=== PATIENT | female | born 1995 | race Caucasian/White ===

== ENCOUNTER → 2020-06-30 13:06 | Outpatient (BNVA) | payer OTHER, SELFPAY | PROVIDERS: PCP Nurse Practitioner Primary Care; Visit Provider Internal Medicine | DX: I34.0 Nonrheumatic mitral (valve) insufficiency (principal); I21.4 Non-ST elevation (NSTEMI) myocardial infarction; I10 Essential (primary) hypertension; Z87.74 Personal history of (corrected) congenital malformations of heart and circulatory system | CPT/HCPCS: 93005; 99212 ==

== ENCOUNTER 2021-01-29 19:10 | Inpatient (IN) | payer OTHER, SELFPAY ==
--- NOTE | ~2021-01-29 | US_ITS ---
EXAMINATION: US ABDOMEN LIMITED CLINICAL INFORMATION: Right upper quadrant pain. Question cholecystitis. COMPARISON: CT 06/13/2019 TECHNIQUE: Real-time imaging of the right upper quadrant abdominal viscera with attention focused on the gallbladder and common bile duct as directed by the ordering physician. FINDINGS: PANCREAS: Not imaged, as directed by the ordering provider. LIVER: The liver was not completely imaged but the visualized liver is normal in appearance GALLBLADDER: There is circumferential gallbladder wall thickening up to 7-8mm. Echogenic shadowing gallstones are present. The corporate sales manager reports focal tenderness upon imaging of the gallbladder, a sonographic Pate's sign COMMON BILE DUCT: Normal in caliber measuring 0.5 cm in diameter. RIGHT KIDNEY: Not imaged as directed by the ordering provider. FREE FLUID: None. US/US abdomen limited IMPRESSION: There are gallstones, gallbladder wall thickening, and focal tenderness upon imaging of the gallbladder. This constellation of findings is consistent with acute cholecystitis.
[2021-01-29 20:05] VITALS: BP 156/97; PULSE 58; RESP 18; TEMP 36.8; O2SAT 99; BMI 37.0
[2021-01-29 21:02] LABS: MANUAL DIFF FLAG NO
[2021-01-29 21:05] LABS: Basophils Absolute Auto 0.1 X10*3/uL (0.0-0.2); Basophils Percent Auto 0.5 % (0-2); Eosinophils Absolute Auto 0.3 X10*3/uL (0.0-0.4); Eosinophils Percent Auto 2.8 % (0-4); Hematocrit 41.6 % (37-47); Hemoglobin 13.8 g/dl (12.0-16.0); Imm Gran Abs Auto 0.03 X10*3/uL (0.00-0.03); Imm Gran Pct Auto 0.3 % (0.0-0.4); Lymphocytes Absolute Auto 3.1 X10*3/uL (1.2-4.9); Lymphocytes Percent Auto 33.8 % (20-40); Mean Corpuscular HGB Conc 33.2 g/dl (31.0-35.0); Mean Corpuscular Hemoglobin 27.5 pg (27.0-33.0); Mean Corpuscular Volume 82.9 fL (80-98); Mean Platelet Volume 9.6 fL (9.4-12.3); Monocytes Absolute Auto 0.6 X10*3/uL (0.1-1.2); Monocytes Percent Auto 6.5 % (2-11); Neutrophils Absolute Auto 5.1 X10*3/uL (2.0-8.3); Neutrophils Percent Auto 56.1 % (45-73); Platelet Count 244 X10*3/uL (160-400); Red Blood Count 5.02 X10*6/uL (4.20-5.50); Red Cell Distribution Width 13.8 % (11.0-16.0); White Blood Count 9.2 X10*3/uL (4.8-10.8)
[2021-01-29 21:07] LABS: Appearance Urine CLEAR; Color Urine YELLOW; Glucose Urine UA NEG (NEG); Leukocyte Esterase Urine NEG (NEG); Nitrite Urine NEG (NEG); Specific Gravity - Urine >= 1.030 (1.005-1.025); Urine Blood NEG (NEG); Urine Ketones 5 MG/DL (NEG); Urine Protein TRACE MG/DL (NEG-TRACE)
[2021-01-29 21:08] LABS: Urine Pregnancy NEGATIVE (NEGATIVE)
[2021-01-29 21:09] LABS: UPreg QC Valid YES
[2021-01-29 21:21] LABS: Alanine Aminotransferase 22 U/L (0-31); Albumin Level 4.4 g/dL (3.5-5.0); Alkaline Phosphatase 83 U/L (39-117); Anion Gap 11 (12-20); Aspartate Amino Transferase 26 U/L (5-31); Bilirubin Total 0.4 mg/dL (0.0-1.0); Blood Urea Nitrogen 13 mg/dL (9-16); Calcium 9.4 mg/dL (8.4-10.2); Carbon Dioxide 24 mmol/L (22-29); Chloride 106 mmol/L (96-108); Creatinine Clr Calc Pharmacy 101.9; Estimated Glomerular Filt Rate > 60; Glucose Random 85 mg/dL (60-115); Sodium 137 mmol/L (135-145); Total Protein 7.7 g/dL (6.5-8.0)
--- NOTE | 2021-01-29 21:46 | ED_ITS ---
HPI - Abdominal Pain General Chief Complaint: Abdominal Pain Stated Complaint: right abd pain Time Seen by Provider: 01/29/21 21:46 Source: patient Mode of arrival: ambulatory Limitations: no limitations History of Present Illness HPI narrative: Patient no significant abdominal complaints in the past noticed pain in the right upper quadrant for last 2 days getting worse after she eats anything associated with nausea, started vomiting today and low-grade fever no significant pain in the past. Normal bowel movements. Related Data Home Medications Medication Instructions Recorded Confirmed beclomethasone dipropionate 40 2 inh PO BID 06/30/20 06/30/20 mcg/actuation HFA breath activated aerosol hydrochlorothiazide 25 mg tablet 25 mg PO QAM 06/30/20 01/29/21 Previous Rx's Medication Instructions Recorded amlodipine 5 mg tablet 10 mg PO DAILY #180 tab 06/30/20 Allergies Allergy/AdvReac Type Severity Reaction Status Date / Time No Known Allergies Allergy Verified 01/29/21 20:05 Review of Systems Review of Systems Yes all other systems are reviewed and are negative Physical Exam Vital Signs: Vital Signs: Last Vital Signs Temp 98.1 F 01/30/21 01:10 Pulse 76 01/30/21 01:10 Resp 16 01/30/21 01:10 BP 154/81 H 01/30/21 01:10 Pulse Ox 98 01/30/21 01:10 Body Mass Index 37.0 Appearance: Alert. Oriented X3. In moderate distress Eyes: No pallor or icterus ENT: Pharynx normal. Oral Mucosa moist Neck: Normal inspection. Neck supple. CVS: Normal heart rate and rhythm. Pulses normal. Respiratory: No respiratory distress. Equal air entry bilateral, no wheezing/rales/rhonchi Abdomen: Soft and tender right upper quadrant Pate sign positive no rebound tenderness guarding present Bowel sounds are present, no mass palpable, no CVA tenderness Skin: Skin warm and dry. Normal skin color. Normal skin turgor. Extremities: No lower extremity edema. No calf tenderness Neuro: Oriented X 3. MDM - Abdominal Pain MDM Narrative Medical decision making narrative: Patient with acute cholecystitis with cholelithiasis normal LFTs patient received 2 doses of morphine is still complaining of pain case discussed Dr. Clayton surgeon will admit the patient for cholecystectomy in the morning Lab Data Attestation: I reviewed the patient's lab results. Result diagrams: 01/29/21 20:57 01/29/21 20:57 Labs: Lab Results 01/29/21 01/29/21 01/29/21 Range/Units 20:57 20:57 20:57 WBC 9.2 (4.8-10.8) X10*3/uL RBC 5.02 (4.20-5.50) X10*6/uL Hgb 13.8 (12.0-16.0) g/dl Hct 41.6 (37-47) % MCV 82.9 (80-98) fL MCH 27.5 (27.0-33.0) pg MCHC 33.2 (31.0-35.0) g/dl RDW 13.8 (11.0-16.0) % Plt Count 244 (160-400) X10*3/uL MPV 9.6 (9.4-12.3) fL Immature Gran % (Auto) 0.3 (0.0-0.4) % Neut % (Auto) 56.1 (45-73) % Lymph % (Auto) 33.8 (20-40) % [place] % (Auto) 6.5 (2-11) % Eos % (Auto) 2.8 (0-4) % Baso % (Auto) 0.5 (0-2) % Lymph # (Auto) 3.1 (1.2-4.9) X10*3/uL [place] # (Auto) 0.6 (0.1-1.2) X10*3/uL Eos # (Auto) 0.3 (0.0-0.4) X10*3/uL Baso # (Auto) 0.1 (0.0-0.2) X10*3/uL Abs Immat Gran (auto) 0.03 (0.00-0.03) X10*3/uL Absolute Neuts (auto) 5.1 (2.0-8.3) X10*3/uL Absolute Nucleated RBC 0.000 (0.0-0.012) X10*3/uL Nucleated RBC % (auto) 0.0 (0.0-0.2) /100WBC Sodium 137 (135-145) mmol/L Potassium 4.0 (3.3-5.1) mmol/L Chloride 106 (96-108) mmol/L Carbon Dioxide 24 (22-29) mmol/L Anion Gap 11 L (12-20) BUN 13 (9-16) mg/dL Creatinine 0.83 (0.5-1.4) mg/dL Estim Creat Clear Calc 101.9 Estimated GFR > 60 Random Glucose 85 (60-115) mg/dL Calcium 9.4 (8.4-10.2) mg/dL Total Bilirubin 0.4 (0.0-1.0) mg/dL AST 26 (5-31) U/L ALT 22 (0-31) U/L Alkaline Phosphatase 83 (39-117) U/L Total Protein 7.7 (6.5-8.0) g/dL Albumin 4.4 (3.5-5.0) g/dL Urine Color YELLOW Urine Appearance CLEAR Urine pH 6.0 (5.0-8.0) Ur Specific [place] >= 1.030 H (1.005-1.025) Urine Protein TRACE (NEG-TRACE) MG/DL Urine Glucose (UA) NEG (NEG) MG/DL Urine Ketones 5 (NEG) MG/DL Urine Blood NEG (NEG) Urine Nitrite NEG (NEG) Ur Leukocyte Esterase NEG (NEG) Urine Test (NEGATIVE) 01/29/21 Range/Units 20:57 WBC (4.8-10.8) X10*3/uL RBC (4.20-5.50) X10*6/uL Hgb (12.0-16.0) g/dl Hct (37-47) % MCV (80-98) fL MCH (27.0-33.0) pg MCHC (31.0-35.0) g/dl RDW (11.0-16.0) % Plt Count (160-400) X10*3/uL MPV (9.4-12.3) fL Immature Gran % (Auto) (0.0-0.4) % Neut % (Auto) (45-73) % Lymph % (Auto) (20-40) % [place] % (Auto) (2-11) % Eos % (Auto) (0-4) % Baso % (Auto) (0-2) % Lymph # (Auto) (1.2-4.9) X10*3/uL [place] # (Auto) (0.1-1.2) X10*3/uL Eos # (Auto) (0.0-0.4) X10*3/uL Baso # (Auto) (0.0-0.2) X10*3/uL Abs Immat Gran (auto) (0.00-0.03) X10*3/uL Absolute Neuts (auto) (2.0-8.3) X10*3/uL Absolute Nucleated RBC (0.0-0.012) X10*3/uL Nucleated RBC % (auto) (0.0-0.2) /100WBC Sodium (135-145) mmol/L Potassium (3.3-5.1) mmol/L Chloride (96-108) mmol/L Carbon Dioxide (22-29) mmol/L Anion Gap (12-20) BUN (9-16) mg/dL Creatinine (0.5-1.4) mg/dL Estim Creat Clear Calc Estimated GFR Random Glucose (60-115) mg/dL Calcium (8.4-10.2) mg/dL Total Bilirubin (0.0-1.0) mg/dL AST (5-31) U/L ALT (0-31) U/L Alkaline Phosphatase (39-117) U/L Total Protein (6.5-8.0) g/dL Albumin (3.5-5.0) g/dL Urine Color Urine Appearance Urine pH (5.0-8.0) Ur Specific [place] (1.005-1.025) Urine Protein (NEG-TRACE) MG/DL Urine Glucose (UA) (NEG) MG/DL Urine Ketones (NEG) MG/DL Urine Blood (NEG) Urine Nitrite (NEG) Ur Leukocyte Esterase (NEG) Urine Test NEGATIVE (NEGATIVE) Discharge Plan Discharge Clinical Impression: Acute calculous cholecystitis Patient Disposition: Admitted As Inpatient [facility] Past Medical History Medical History Essential hypertension Non-rheumatic mitral regurgitation Surgical History History of cardiac catheterization History of lumbar fusion (~2009) Status post catheter-placed plug or coil occlusion of PDA Family History Family History Father No problems noted. Mother Heart attack Stroke HTN (hypertension) Social History Social History Patient Tobacco Use Status: Never used Tobacco Use of substances other than those prescribed or required for medical reasons: No Advance Directives: No Advance Directives Information Provided: Yes Patient : No
[2021-01-29] MEDS: ondansetron HCL 4 MG/2 ML VIAL IVPUSH (22:16)
[2021-01-29] MEDS: Morphine Sulfate 4 MG/ML CARTRIDGE IVPUSH (22:16)
[2021-01-29] MEDS: 0.9 % Sodium Chloride 1,000 ML 999 ML IVCONT (22:16)
--- NOTE | 2021-01-29 22:35 | PC.NURSE ---
US AT BEDSIDE PT MEDICATED PREVIOUSLY PER JUN. IV INFILTRATED UPON REPOSITIONING FOR OPTIMAL FLOW OF FLUIDS. IV REMOVED AND RN TO ATTEMPT NEW ACCESS. PT TOLERATING BEDSIDE US WELL. SKIN PWD RESPIRATIONS EVEN UNLABORED.
[2021-01-29 23:22] VITALS: BP 157/72; PULSE 75; RESP 18; TEMP 36.7; O2SAT 98
[2021-01-30] VITALS (15 sets, daily range): BP systolic 133–203; BP diastolic 65–114; PULSE 62–95; RESP 16–18; TEMP 36.2–36.7; O2SAT 93–98
[2021-01-30] MEDS: Morphine Sulfate 4 MG/ML CARTRIDGE IVPUSH ×5 (00:07→21:22)
--- NOTE | 2021-01-30 00:13 | PC.NURSE ---
PLAN TO ADMIT, PT MEDICATED PER MAR. OFFERS NO ADDITIONAL COMPLAINTS AT THIS TIME. AWAITING ADMISSION.
[2021-01-30] MEDS: 0.9 % Sodium Chloride 1,000 ML 100 ML IVCONT ×2 (01:06→17:47)
[2021-01-30] MEDS: Piperacillin Sodium/Tazobactam 3.375 GM in 0.9 % Sodium Chloride 50 ML IV ×4 (01:06→23:42)
[2021-01-30 01:08] LABS: INTERNATIONAL NORM RATIO 1.1 (0.9-1.1); Prothrombin Time 12.8 SEC (9.9-13.0)
[2021-01-30] MEDS: Morphine Sulfate 2 MG/ML CARTRIDGE IVPUSH (02:38)
[2021-01-30 03:50] LABS: COVID-19 Test Negative (Negative)
--- NOTE | 2021-01-30 07:52 | P.HPGS_ITS ---
History of Present Illness History of Present Illness Date of Service: 01/30/21 <Jacqueline Cruz PA-C - Last Filed: 01/30/21 10:48> 01/30/21 <Mary Kay Martinez MD - Last Filed: 01/30/21 11:18> Chief complaint: Acute cholecystitis <Jacqueline Cruz PA-C - Last Filed: 01/30/21 10:48> Narrative: Loni Lombardi is a 25 year old female who presented to the ED with complaints of RUQ abdominal pain since Tuesday. Patient reports sudden onset of RUQ pain following eating chicken and rice on Tuesday. She developed nausea, vomiting and diarrhea shortly after. The pain radiated to her right flank and upper back and began to progressively worsen over the next couple of days. She also endorses anorexia due to the pain and nausea. She denies fever, chills, change in skin or urine/stool color. She denies previous episodes of similar pain. Due to the severity of the pain, she presented to the ED yesterday for evaluation. Work up included an ABD US which revealed gallstones, gallbladder wall thickening with a sonographic Pate's sign. CBC, BMP, LFTs, PT/INR all WNL. This morning, she feels a little better but has persistent pain. The morphine takes the edge off but not the pain away completely and wears off quickly. Of note, the patient has multiple medical comorbidities including hypertension, a history of a PDA closure with coils as an infant, a cardiac cath for a presumed NSTEMI which was normal. She is followed by [facility] for HTN, PDA closure and mitral regurgitation found on echo. Her last appointment was 07/20. She denies recent episodes of chest pain, SOB, palpitations. She also has a history of shunt placement (age 9) for hydrocephalus, spinal fusion (posterior approach), and history of cyst removal of spleen. <Jacqueline Cruz PA-C - Last Filed: 01/30/21 10:48> Loni Lombardi is a 25 year old female who presented to the ED with complaints of RUQ abdominal pain since Tuesday. Patient reports sudden onset of RUQ pain following eating chicken and rice on Tuesday. She developed nausea, vomiting and diarrhea shortly after. The pain radiated to her right flank and upper back and began to progressively worsen over the next couple of days. She also endorses anorexia due to the pain and nausea. She denies fever, chills, change in skin or urine/stool color. She denies previous episodes of similar pain. Due to the severity of the pain, she presented to the ED yesterday for evaluation. Work up included an ABD US which revealed gallstones, gallbladder wall thickening with a sonographic Pate's sign. CBC, BMP, LFTs, PT/INR all WNL. This morning, she feels a little better but has persistent pain. The morphine takes the edge off but not the pain away completely and wears off quickly. Of note, the patient has multiple medical comorbidities including hypertension, a history of a PDA closure with coils as an infant, a cardiac cath for a presumed NSTEMI which was normal. She is followed by [facility] for HTN, PDA closure and mitral regurgitation found on echo. Her last appointment was 07/20. She denies recent episodes of chest pain, SOB, palpitations. She also has a history of shunt placement (age 9) for hydrocephalus, spinal fusion (posterior approach), and history of cyst removal of spleen. Patient seen, history obtained, physical exam performed, labs and radiologic studies reviewed. I agree with the history and physical exam and assessment and plan from the physician assistant curator. Patient has acute cholecystitis with cholelithiasis. Patient will be taken to the operating room for laparoscopic possible open cholecystectomy. Risks benefits and alternatives were discussed with the patient and she agrees to proceed. <Mary Kay Martinez MD - Last Filed: 01/30/21 11:18> Review of Systems Constitutional: Constitutional: Denies chills, Denies fever(s), Reports poor appetite and Reports weakness <Jacqueline Cruz PA-C - Last Filed: 01/30/21 10:48> ENT: Denies dizziness <ANTHONY Badillo Last Filed: 01/30/21 10:48> Cardiovascular: Cardiovascular: Denies chest pain, Denies palpitations and Denies dyspnea <ANTHONY Badillo Last Filed: 01/30/21 10:48> Respiratory: Respiratory: Denies cough and Denies dyspnea <Jacqueline Cruz PA-C - Last Filed: 01/30/21 10:48> Gastrointestinal: Gastrointestinal: Reports as per HPI and Denies hematemesis <Jacqueline Cruz PA-C - Last Filed: 01/30/21 10:48> Genitourinary: Genitourinary: Denies hematuria and Denies dysuria <Jacqueline Cruz PA-C - Last Filed: 01/30/21 10:48> Integumentary/Breasts: Skin/Breast: Denies rash and Denies jaundice <Jacqueline Cruz PA-C - Last Filed: 01/30/21 10:48> Neurologic: Denies dizziness, Denies focal weakness and Reports weakness <Jacqueline Cruz PA-C Last Filed: 01/30/21 10:48> Endocrine: Endocrine: Denies palpitations <Jacqueline Cruz PA-C Last Filed: 01/30/21 10:48> PMFSH Past Medical History Medical History: Medical History Essential hypertension Non-rheumatic mitral regurgitation <Jacqueline Cruz PA-C - Last Filed: 01/30/21 10:48> Family History Family History: Family History (Updated 01/30/21 @ 11:11 by Mary Kay Martinez MD) Father Heart attack Stroke Heart disease Mother History of cholecystectomy Brother No problems noted. Brother No problems noted. Sister No problems noted. Maternal Grandmother Breast cancer <Jacqueline Cruz PA-C Last Filed: 01/30/21 10:48> Surgical History Surgical History: Surgical History (Updated 01/30/21 @ 11:15 by Mary Kay Martinez MD) History of brain shunt History of cardiac catheterization History of foot surgery History of laparoscopy History of lumbar fusion (~2009) Status post catheter-placed plug or coil occlusion of PDA <Jacqueline Cruz PA-C Last Filed: 01/30/21 10:48> Social History Social History: Social History (Updated 01/30/21 @ 11:16 by Mary Kay Martinez MD) Household Members: Family Housing: Apartment Do you presently have visiting nurse or other home services: No Alcohol intake: current Alcohol intake frequency: holidays/special occasions only Patient Tobacco Use Status: Never used Tobacco Use of substances other than those prescribed or required for medical reasons: No Have you been hit, kicked, punched, or otherwise hurt by someone within the past year? If so, by whom?: No Do you feel safe in your current relationship?: No Current Relationship Is there a partner from a previous relationship who is making you feel unsafe now?: No Are you made to feel afraid or neglected: No Advance Directives: No Advance Directives Information Provided: Yes Do you have thoughts of harming others: None Do you have a plan to hurt others: No Plan Recently lost weight without trying: Unsure Nutrition Risks: Poor intake 0-25% >4 days Patient : No <Jacqueline Cruz PA-C - Last Filed: 01/30/21 10:48> Meds Allergies/Adverse reactions: Allergies Allergy/AdvReac Type Severity Reaction Status Date / Time No Known Allergies Allergy Verified 01/29/21 20:05 <Jacqueline Cruz PA-C - Last Filed: 01/30/21 10:48> Active Medications: Current Medications Acetaminophen (Acetaminophen 325 Mg Tablet) 650 mg PO Q4H PRN PRN Reason: Fever Albuterol Sulfate (Albuterol Sulfate 90 Mcg 8 Gm Inhaler) 2 puff INHALE RQ4H PRN PRN Reason: wheezing Amlodipine Besylate (Amlodipine Besylate 10 Mg Tablet) 10 mg PO DAILY JUAN; Protocol Diphenhydramine HCl (Diphenhydramine Hcl 25 Mg Tablet) 25 mg PO Q4H PRN PRN Reason: itching Hydrochlorothiazide (Hydrochlorothiazide 25 Mg Tablet) 25 mg PO DAILY JUAN; Protocol Sodium Chloride (Ns) 1,000 mls @ 100 mls/hr IVCONT .Q10H JUAN Last Admin: 01/30/21 01:06 Dose: 100 mls/hr Documented by: Piperacillin Sod/Tazobactam (Sod 3.375 gm/ Sodium Chloride) 50 mls @ 100 mls/hr IV Q6H [facility] Last Infusion: 01/30/21 07:34 Dose: Infused Documented by: Morphine Sulfate (Morphine Sulfate 2 Mg/Ml Cartridge) 2 mg IVPUSH Q3H PRN; Protocol PRN Reason: Pain, Moderate (Pain Scale 4-6 Last Admin: 01/30/21 02:38 Dose: 2 mg Documented by: Morphine Sulfate (Morphine Sulfate 4 Mg/Ml Cartridge) 4 mg IVPUSH Q3H PRN; Protocol PRN Reason: Pain, Severe (Pain Scale 7-10) Last Admin: 01/30/21 06:09 Dose: 4 mg Documented by: Ondansetron HCl (Ondansetron Hcl 4 Mg/2 Ml Vial) 4 mg IVPUSH Q4H PRN PRN Reason: Nausea Sodium Chloride (0.9 % Sodium Chloride Flush 3 Ml Syringe) 3 ml IVFLUSH QSHIFT [facility] <ANTHONY Badillo Last Filed: 01/30/21 10:48> Home medications: Home Medications Medication Instructions Recorded Confirmed Last Taken Type hydrochlorothiazide 25 mg tablet 25 mg PO QAM 06/30/20 01/29/21 01/29/21 History <ANTHONY Badillo Last Filed: 01/30/21 10:48> Physical Exam Vital Signs: Vital Signs: Last Vital Signs Temp 98.1 F 01/30/21 01:10 Pulse 76 01/30/21 01:10 Resp 16 01/30/21 01:10 BP 154/81 H 01/30/21 01:10 Pulse Ox 98 01/30/21 01:10 Body Mass Index 37.0 <ANTHONY Badillo Last Filed: 01/30/21 10:48> Const: General: comfortable, no acute distress and alert <ANTHONY Badillo Last Filed: 01/30/21 10:48> Orientation/consciousness: patient oriented x3 <ANTHONY Badillo Last Filed: 01/30/21 10:48> Eyes: Sclerae: sclerae normal <ANTHONY Badillo Last Filed: 01/30/21 10:48> Resp: Effort & Inspection: normal respiratory effort <ANTHONY Badillo Last Filed: 01/30/21 10:48> Cardio: Rate: regular rate <ANTHONY Badillo Last Filed: 01/30/21 10:48> Rhythm: regular rhythm <ANTHONY Badillo Last Filed: 01/30/21 10:48> GI: Inspection: No distended and Yes scar (well healed) <Jacqueline Cruz PA-C - Last Filed: 01/30/21 10:48> Palpation (GI): Soft to palpation, Tenderness to palpation present (GI) in the epigastrum and in the RUQ (marked); Negative for Pate's sign negative, no guarding and not rigid <Jacqueline Cruz PA-C - Last Filed: 01/30/21 10:48> Palpation (GI): Tenderness to palpation present (GI) in the epigastrum and in the RUQ (marked); Negative for Pate's sign negative <Mary Kay Martinez MD - Last Filed: 01/30/21 11:18> Percussion: Yes normal to percussion <Jacqueline Cruz PA-C - Last Filed: 01/30/21 10:48> Skin: Other: normal color, warm and dry <Jacqueline Cruz PA-C - Last Filed: 01/30/21 10:48> General skin exam: no rashes or lesions noted <Jacqueline Cruz PA-C - Last Filed: 01/30/21 10:48> Neuro: General: patient oriented x3 <Jacqueline Cruz PA-C - Last Filed: 01/30/21 10:48> Extrem: General: Yes no clubbing, cyanosis or edema <Jacqueline Cruz PA-C - Last Filed: 01/30/21 10:48> Results Results Labs: Short CBC 01/29/21 Range/Units 20:57 WBC 9.2 (4.8-10.8) X10*3/uL Hgb 13.8 (12.0-16.0) g/dl Hct 41.6 (37-47) % Plt Count 244 (160-400) X10*3/uL BMP 01/29/21 20:57 Sodium 137 Potassium 4.0 Chloride 106 Carbon Dioxide 24 BUN 13 Creatinine 0.83 Calcium 9.4 Liver Function 01/29/21 Range/Units 20:57 Total Bilirubin 0.4 (0.0-1.0) mg/dL AST 26 (5-31) U/L ALT 22 (0-31) U/L Alkaline Phosphatase 83 (39-117) U/L Albumin 4.4 (3.5-5.0) g/dL Urine 01/29/21 01/29/21 Range/Units 20:57 20:57 Urine Color YELLOW Urine Appearance CLEAR Urine pH 6.0 (5.0-8.0) Ur Specific [place] >= 1.030 H (1.005-1.025) Urine Protein TRACE (NEG-TRACE) MG/DL Urine Glucose (UA) NEG (NEG) MG/DL Urine Test NEGATIVE (NEGATIVE) <Jacqueline Cruz PA-C - Last Filed: 01/30/21 10:48> Abdominal ultrasound report/results: report reviewed <Mary Kay Martinez MD - Last Filed: 01/30/21 11:18> Assessment and Plan (1) Acute calculous cholecystitis: Status: Acute <Jacqueline Cruz PA-C - Last Filed: 01/30/21 10:48> This is a 25-year-old lady with acute calculous cholecystitis by history physical exam and ultrasound results. Patient will be taken to the operating room for laparoscopic possible open cholecystectomy. Risks benefits and alternatives were discussed with the patient she agrees to proceed. <Mary Kay Martinez MD - Last Filed: 01/30/21 11:18> (2) Essential hypertension: Status: Acute <Jacqueline Cruz PA-C - Last Filed: 01/30/21 10:48> 25 year old female with multiple medical comorbidities with 4 day history of RUQ abdominal pain associated with nausea and vomiting, with marked RUQ tenderness and ABD US demonstrating gallstones and gallbladder wall thickening. Clinical picture consistent with acute cholecystitis. She was admitted to the surgical service and started on IV zosyn, IVF, NPO status. Given the persistence of pain, it was recommended to proceed with laparoscopic cholecystectomy possible open. Technique of the procedure, risks and benefits and alternatives were discussed with the patient including but not limited to infection, bleeding, injury to surrounding intraabdominal structures including liver, bile ducts, vessels, bowel. The patient elects to proceed with surgery. She was added onto the OR schedule for today. Case discussed with Dr. Martinez. <Jacqueline Cruz PA-C - Last Filed: 01/30/21 10:48> Quality Stroke Does the patient have a stroke diagnosis?: No <Jacqueline Cruz PA-C - Last Filed: 01/30/21 10:48> VTE Prior VTE?: No <Jacqueline Cruz PA-C - Last Filed: 01/30/21 10:48> VTE Risk Level:: Surgical - high <Jacqueline Cruz PA-C - Last Filed: 01/30/21 10:48> VTE Device Contraindication: N/A - Device Ordered <Jacqueline Cruz PA-C - Last Filed: 01/30/21 10:48> VTE Drug Contraindication: Treatment Not Indicated (surgery scheduled) <Jacqueline Cruz PA-C - Last Filed: 01/30/21 10:48> Procedures Date of Service Date of Service: 01/30/21 <Jacqueline Cruz PA-C - Last Filed: 01/30/21 10:48>
[2021-01-30] MEDS: hydroCHLOROthiazide 25 MG TABLET PO (08:00)
[2021-01-30] MEDS: amLODIPine Besylate 10 MG TABLET PO (08:00)
[2021-01-30] MEDS: ondansetron HCL 4 MG/2 ML VIAL IVPUSH (10:54)
--- NOTE | 2021-01-30 13:33 | P.CONAN_ITS ---
[facility] Active Problems Active Problems: All Active Problems (Updated 01/30/21 @ 00:01 by Dominic Pendleton MD) Acute calculous cholecystitis (Acute) Status post catheter-placed plug or coil occlusion of PDA (Acute) Essential hypertension (Acute) NSTEMI (non-ST elevated myocardial infarction) (Acute) Non-rheumatic mitral regurgitation (Acute) Past Medical History Medical History Essential hypertension Non-rheumatic mitral regurgitation Family History Family History Father Heart attack Stroke Heart disease Mother History of cholecystectomy Brother No problems noted. Brother No problems noted. Sister No problems noted. Maternal Grandmother Breast cancer Family history of problems with anesthesia: No Surgical History Surgical History History of brain shunt History of cardiac catheterization History of foot surgery History of laparoscopy History of lumbar fusion (~2009) Status post catheter-placed plug or coil occlusion of PDA History of Problems with Anesthesia: No Social History Social History Household Members: Family Housing: Apartment Do you presently have visiting nurse or other home services: No Alcohol intake: current Alcohol intake frequency: holidays/special occasions only Patient Tobacco Use Status: Never used Tobacco Use of substances other than those prescribed or required for medical reasons: No Currently Displaying Signs/Symptoms of Drug Intoxication Withdrawal: No Have you been hit, kicked, punched, or otherwise hurt by someone within the past year? If so, by whom?: No Do you feel safe in your current relationship?: No Current Relationship Is there a partner from a previous relationship who is making you feel unsafe now?: No Are you made to feel afraid or neglected: No Are you DNR?: No Advance Directives: No Advance Directives Information Provided: Yes Do you have thoughts of harming others: None Do you have a plan to hurt others: No Plan Recently lost weight without trying: Unsure Nutrition Risks: Poor intake 0-25% >4 days Patient : No Meds Allergies Allergy/AdvReac Type Severity Reaction Status Date / Time No Known Allergies Allergy Verified 01/29/21 20:05 Active Medications: Current Medications Acetaminophen (Acetaminophen 325 Mg Tablet) 650 mg PO Q4H PRN PRN Reason: Fever Albuterol Sulfate (Albuterol Sulfate 90 Mcg 8 Gm Inhaler) 2 puff INHALE RQ4H PRN PRN Reason: wheezing Amlodipine Besylate (Amlodipine Besylate 10 Mg Tablet) 10 mg PO DAILY [facility]; Protocol Last Admin: 01/30/21 08:00 Dose: 10 mg Documented by: Diphenhydramine HCl (Diphenhydramine Hcl 25 Mg Tablet) 25 mg PO Q4H PRN PRN Reason: itching Hydrochlorothiazide (Hydrochlorothiazide 25 Mg Tablet) 25 mg PO DAILY [facility]; Protocol Last Admin: 01/30/21 08:00 Dose: 25 mg Documented by: Sodium Chloride (Ns) 1,000 mls @ 100 mls/hr IVCONT .Q10H [facility] Last Admin: 01/30/21 12:18 Dose: Not Given Documented by: Piperacillin Sod/Tazobactam (Sod 3.375 gm/ Sodium Chloride) 50 mls @ 100 mls/hr IV Q6H [facility] Last Infusion: 01/30/21 07:34 Dose: Infused Documented by: Lactated Ringer's (Lr) 500 mls @ 20 mls/hr IVCONT .Q24H [facility] Morphine Sulfate (Morphine Sulfate 2 Mg/Ml Cartridge) 2 mg IVPUSH Q3H PRN; Protocol PRN Reason: Pain, Moderate (Pain Scale 4-6 Last Admin: 01/30/21 02:38 Dose: 2 mg Documented by: Morphine Sulfate (Morphine Sulfate 4 Mg/Ml Cartridge) 4 mg IVPUSH Q3H PRN; Protocol PRN Reason: Pain, Severe (Pain Scale 7-10) Last Admin: 01/30/21 09:39 Dose: 4 mg Documented by: Ondansetron HCl (Ondansetron Hcl 4 Mg/2 Ml Vial) 4 mg IVPUSH Q4H PRN PRN Reason: Nausea Last Admin: 01/30/21 10:54 Dose: 4 mg Documented by: Sodium Chloride (0.9 % Sodium Chloride Flush 3 Ml Syringe) 3 ml IVFLUSH QSHIFT [facility] Last Admin: 01/30/21 08:10 Dose: Not Given Documented by: Home Medications Medication Instructions Recorded Confirmed Last Taken Type hydrochlorothiazide 25 mg tablet 25 mg PO QA 06/30/20 01/29/2101/29/21 History Exam Exam Date and Time: January 30, 2021 1333 Height,Weight and Vital Signs: Height 5 ft Weight 86.183 kg Last Vital Signs Temp 98.0 F 01/30/21 12:57 Pulse 77 01/30/21 12:57 Resp 16 01/30/21 12:57 BP 161/83 H 01/30/21 12:57 Pulse Ox 97 01/30/21 12:57 Pertinent Lab Results Pertinent Lab Results: Laboratory Tests 01/29/21 01/29/21 01/29/21 20:57 20:57 20:57 WBC 9.2 RBC 5.02 Hgb 13.8 Hct 41.6 MCV 82.9 MCH 27.5 MCHC 33.2 RDW 13.8 Plt Count 244 MPV 9.6 Immature Gran % (Auto) 0.3 Neut % (Auto) 56.1 Lymph % (Auto) 33.8 [place] % (Auto) 6.5 Eos % (Auto) 2.8 Baso % (Auto) 0.5 Lymph # (Auto) 3.1 [place] # (Auto) 0.6 Eos # (Auto) 0.3 Baso # (Auto) 0.1 Abs Immat Gran (auto) 0.03 Absolute Neuts (auto) 5.1 Absolute Nucleated RBC 0.000 Nucleated RBC % (auto) 0.0 PT INR Sodium 137 Potassium 4.0 Chloride 106 Carbon Dioxide 24 Anion Gap 11 L BUN 13 Creatinine 0.83 Estim Creat Clear Calc 101.9 Estimated GFR > 60 Random Glucose 85 Calcium 9.4 Total Bilirubin 0.4 AST 26 ALT 22 Alkaline Phosphatase 83 Total Protein 7.7 Albumin 4.4 Urine Color YELLOW Urine Appearance CLEAR Urine pH 6.0 Ur Specific [place] >= 1.030 H Urine Protein TRACE Urine Glucose (UA) NEG Urine Ketones 5 Urine Blood NEG Urine Nitrite NEG Ur Leukocyte Esterase NEG Urine Test COVID-19 ([facility]) COVID-19 Clin Com 01/29/21 01/30/21 01/30/21 20:57 00:53 03:28 WBC RBC Hgb Hct MCV MCH MCHC RDW Plt Count MPV Immature Gran % (Auto) Neut % (Auto) Lymph % (Auto) [place] % (Auto) Eos % (Auto) Baso % (Auto) Lymph # (Auto) [place] # (Auto) Eos # (Auto) Baso # (Auto) Abs Immat Gran (auto) Absolute Neuts (auto) Absolute Nucleated RBC Nucleated RBC % (auto) PT 12.8 INR 1.1 Sodium Potassium Chloride Carbon Dioxide Anion Gap BUN Creatinine Estim Creat Clear Calc Estimated GFR Random Glucose Calcium Total Bilirubin AST ALT Alkaline Phosphatase Total Protein Albumin Urine Color Urine Appearance Urine pH Ur Specific [place] Urine Protein Urine Glucose (UA) Urine Ketones Urine Blood Urine Nitrite Ur Leukocyte Esterase Urine Test NEGATIVE COVID-19 ([facility]) Negative COVID-19 Clin Com See Note Airway Mallampati Class: II TM Dist: >3cm Neck ROM: Full Assessment and Plan Assessment Anesthesia Assessment: Anesthesia Plan Discussed and Chart Reviewed Final Anesthetic Review Family History of Problems with Anesthesia: No History of Problems with Anesthesia: No NPO: Yes ASA Class: III Final Preanesthetic Review: No Changes in Pt Med Stat, Meds/Allgs Chart Reviewed, Consent Obtained/Reviewed and Anes Risks/Benef Reviewed Patient Risk: Intermediate Procedure Risk: Intermediate Assessment/Block/Sedation in SS: Assess/Block/Sedation-SS Anesthetic Plan Anesthetic Plan: GA Disposition: Standard PACU
[2021-01-30] MEDS: Lactated Ringers 500 ML 20 ML IVCONT (13:36)
--- NOTE | 2021-01-30 14:11 | PM.OP ---
Brief Operative Note Date of Service: 01/30/21 Pre-op diagnosis: Acute cholecystitis Post-op diagnosis: same Procedure: Laparoscopic cholecystectomy Surgeon: Mary Kay Martinez MD Anesthesia: GETA Was an Six Sigma Black Belt Engineer used for this Procedure?: No Six Sigma Black Belt Engineer: Jacqueline Cruz Estimated blood loss (mL): 50 Pathology: other (Gallbladder) Condition: stable Disposition: PACU
--- NOTE | 2021-01-30 14:12 | W.PM.OPN ---
Operative Note Operative Note Date of Service: 01/30/21 Narrative: Patient was brought into the operating room, placed on operating table in the supine position. Normal DVT prophylaxis was instituted. Patient received 2 g of IV cefotetan preoperatively. General anesthesia was induced. The abdomen was prepped and draped in the normal sterile fashion using ChloraPrep. A safety time-out was performed. Next a mixture of 1% lidocaine with epinephrine and 0.25% Marcaine plain was used to anesthetize the planned incision site in the infraumbilical position. A 11. Scalpel was used to make a 2 cm infraumbilical transverse surgical incision through which the subcutaneous tissues were dissected down to level the fascia. The fascia was grasped did between 2 Emilee clamps and entered using a 11. Scalpel for about 1 cm vertically. An 0 Vicryl suture was placed on either side of the open fascia. A finger was used to bluntly gain access to the intra-abdominal cavity. A 12 mm Schaefer trocar was introduced into the abdomen and secured to the abdominal wall using sutures on the fascia. The abdomen was insufflated to 15 mmHg. Next a 5 mm 30 degree laparoscoped was introduced into the abdomen and used to survey the abdominal cavity which was normal. Next 3 additional 5 mm ports were placed. One port was placed in the epigastrium to the right of the falciform ligament, 2 ports were placed in the right upper quadrant 1 laterally and 1 more medially. The patient was placed in reverse Trendelenburg and left side tilted down. A grasper was placed through the right lateral port and used to grasp the fundus of the gallbladder and retracted it cephalad. Another grasper was used to grasp the infundibulum of the gallbladder retracted inferior and laterally. We cleared the cystic artery and cystic duct circumferentially and the distal 1/3 of the gallbladder with the gallbladder fossa. This gave us the critical view of safety. We then placed 3 clips on the cystic duct distal to the gallbladder 1 clip on the cystic duct proximal to the gallbladder. We placed 1 clip on the cystic artery proximal to the gallbladder and 2 clips on the cystic artery distal to the gallbladder and transected both structures in between clips. We took the remainder of the gallbladder off the gallbladder fossa and placed in Endo-Catch bag and removed it from the abdomen. We then evaluated the gallbladder fossa it was hemostatic there was no evidence of any bile draining or any bleeding noted. The clips were in place on the cystic artery and cystic duct stumps. We then removed the 5 mm ports under direct vision there was no bleeding noted from these port sites. We desufflated the abdomen through the last remaining port and removed the last port and laparoscope. We reapproximated the fascial defect at the umbilicus using a [id number] 0 Vicryl suture and tied the original fascial sutures over that closure. There was no residual fascial defect. We placed an additional amount of local anesthetic into the fascia closure site. We closed all skin incisions with a 4 Monocryl subcuticular stitch. We cleaned and dried the skin and applied Dermabond skin glue to all skin incisions. All counts were correct at the end the case there were no complications. The patient was awake and in stable condition prior to extubation and transfer to the recovery room.
--- NOTE | 2021-01-30 14:16 | P.DS_ITS ---
DS: Providers Provider Date of Service: 01/30/21 Date of admission: 01/30/21 00:14 Date of discharge: 01/31/21 Primary care physician: Unknown Physician Admitting clinician: Mary Kay Martinez Discharging clinician: Mary Kay Martinez DS: Diagnosis Discharge Diagnosis (1) Acute calculous cholecystitis: Status: Acute (2) Essential hypertension: Status: Acute DS: Summary Hospital Course Hospital Course: This is a 25-year-old lady who was admitted on 01/30/2021 with acute cholecystitis by history physical exam and ultrasound. Patient was admitted to the surgical service and was taken to the operating room where a laparoscopic cholecystectomy was performed without event. Patient did well postoperatively and was taken back to the surgical floor where she was started on a regular diet when tolerated well. On postoperative day 1. Patient was noted to be doing well and was discharged home. Status at Discharge Functional status at discharge: independent ambulation Overall status at discharge: patient is back to baseline Time Spent with Patient Time attestation: Total time spent providing and/or coordinating discharge services: Discharge coordination time: Less than 30 minutes Quality: Stroke Does the patient have a stroke diagnosis?: No Physical Exam Vital Signs: Vital Signs: Last Vital Signs Temp 98.0 F 01/30/21 12:57 Pulse 77 01/30/21 12:57 Resp 16 01/30/21 12:57 BP 161/83 H 01/30/21 12:57 Pulse Ox 97 01/30/21 12:57 Body Mass Index 37.0 DS: Data Data Completed and Pending Labs on day of discharge: Laboratory Results - last 24 hr 01/29/21 01/29/21 01/29/21 20:57 20:57 20:57 WBC 9.2 RBC 5.02 Hgb 13.8 Hct 41.6 MCV 82.9 MCH 27.5 MCHC 33.2 RDW 13.8 Plt Count 244 MPV 9.6 Immature Gran % (Auto) 0.3 Neut % (Auto) 56.1 Lymph % (Auto) 33.8 [place] % (Auto) 6.5 Eos % (Auto) 2.8 Baso % (Auto) 0.5 Lymph # (Auto) 3.1 [place] # (Auto) 0.6 Eos # (Auto) 0.3 Baso # (Auto) 0.1 Abs Immat Gran (auto) 0.03 Absolute Neuts (auto) 5.1 Absolute Nucleated RBC 0.000 Nucleated RBC % (auto) 0.0 PT INR Sodium 137 Potassium 4.0 Chloride 106 Carbon Dioxide 24 Anion Gap 11 L BUN 13 Creatinine 0.83 Estim Creat Clear Calc 101.9 Estimated GFR > 60 Random Glucose 85 Calcium 9.4 Total Bilirubin 0.4 AST 26 ALT 22 Alkaline Phosphatase 83 Total Protein 7.7 Albumin 4.4 Urine Color YELLOW Urine Appearance CLEAR Urine pH 6.0 Ur Specific [place] >= 1.030 H Urine Protein TRACE Urine Glucose (UA) NEG Urine Ketones 5 Urine Blood NEG Urine Nitrite NEG Ur Leukocyte Esterase NEG Urine Test COVID-19 ([facility]) COVID-19 Allocab Com 01/29/21 01/30/21 01/30/21 20:57 00:53 03:28 WBC RBC Hgb Hct MCV MCH MCHC RDW Plt Count MPV Immature Gran % (Auto) Neut % (Auto) Lymph % (Auto) [place] % (Auto) Eos % (Auto) Baso % (Auto) Lymph # (Auto) [place] # (Auto) Eos # (Auto) Baso # (Auto) Abs Immat Gran (auto) Absolute Neuts (auto) Absolute Nucleated RBC Nucleated RBC % (auto) PT 12.8 INR 1.1 Sodium Potassium Chloride Carbon Dioxide Anion Gap BUN Creatinine Estim Creat Clear Calc Estimated GFR Random Glucose Calcium Total Bilirubin AST ALT Alkaline Phosphatase Total Protein Albumin Urine Color Urine Appearance Urine pH Ur Specific [place] Urine Protein Urine Glucose (UA) Urine Ketones Urine Blood Urine Nitrite Ur Leukocyte Esterase Urine Test NEGATIVE COVID-19 ([facility]) Negative COVID-19 Clin Com See Note Discharge Plan Discharge Patient Disposition: Home, Self-Care Discharge Diagnosis: Acute cholecystitis Referrals: Physician,Unknown [Primary Care Provider] - 1 Week Discharge Medications: New acetaminophen 500 mg tablet 1,000 mg PO Q6H Qty: 60 RF: 1 docusate sodium [Colace] 100 mg capsule 100 mg PO BID Qty: 30 RF: 1 oxycodone 5 mg tablet 5 mg PO Q4H PRN (Reason: pain) 7 Days Qty: 20 RF: 0 Continued hydrochlorothiazide 25 mg tablet 25 mg PO QAM RF: 0 amlodipine 5 mg tablet 10 mg PO DAILY Qty: 180 RF: 4 Discharge Orders: Discharge Order (Routine); Ordered 02/01/21 Ordered By: Ewa Goncalves Diet: regular diet Activity on Discharge: No heavy lifting Stand Alone Forms: Patient Portal Discharge page Activity Restrictions/Additional Instructions: Patient should avoid all lifting greater than 5-10 lb for the next 4 weeks. Patient should follow up with Dr. Martinez in 1 week and should call the office to schedule her a follow-up appointment. The office number is [phone]. Patient should also call Dr. Martinez office with any questions or concerns such as increasing abdominal pain, persistent nausea vomiting, fever, chills, shortness of breath, chest pain. Patient may resume prehospitalization medications and diet. Care Plan Goals: Return to baseline health Health Concerns: Acute cholecystitis Plan of Treatment: Patient is status post laparoscopic cholecystectomy Assessment: Patient is doing well Discharge Date/Time: 02/01/21 12:32
--- NOTE | 2021-01-30 15:25 | MHC.CM.PN ---
CM ATTEMPTED TO MEET W/PT HOWEVER PT HAS LEFT UNIT FOR SURGERY, CM WILL REVISIT OVER W/E.
[2021-01-30] MEDS: oxyCODONE HCl Immed Release 5 MG TABLET 10 MG PO ×3 (16:05→23:47)
[2021-01-30] MEDS: fentaNYL citrate/PF 100 MCG/2 ML VIAL 50 MCG IVPUSH ×4 (16:05→16:20)
[2021-01-30] MEDS: Acetaminophen 325 MG TABLET 650 MG PO (19:07)
[2021-01-30] MEDS: Melatonin 3 MG TABLET 6 MG PO (21:18)
[2021-01-30] MEDS: 0.9 % Sodium Chloride Flush 3 ML SYRINGE IVFLUSH (21:22)
[2021-01-31] MEDS: 0.9 % Sodium Chloride 1,000 ML 100 ML IVCONT ×2 (03:20→13:52)
[2021-01-31] MEDS: Morphine Sulfate 4 MG/ML CARTRIDGE IVPUSH ×4 (03:20→18:35)
[2021-01-31] MEDS: ondansetron HCL 4 MG/2 ML VIAL IVPUSH (03:24)
[2021-01-31] MEDS: Piperacillin Sodium/Tazobactam 3.375 GM in 0.9 % Sodium Chloride 50 ML IV ×3 (05:25→17:34)
[2021-01-31 08:00] VITALS: BP 160/81; PULSE 66; RESP 18; TEMP 36.6; O2SAT 97
[2021-01-31] MEDS: hydroCHLOROthiazide 25 MG TABLET PO (08:20)
[2021-01-31] MEDS: amLODIPine Besylate 10 MG TABLET PO (08:20)
[2021-01-31] MEDS: oxyCODONE HCl Immed Release 5 MG TABLET 10 MG PO ×3 (08:21→17:34)
--- NOTE | 2021-01-31 10:33 | HO.POSTANES ---
Post Anesthesia Evaluation Post Anesthesia Evaluation Vital Signs: Vital Signs Temp Pulse Resp BP Pulse Ox 01/31/21 08:00 97.8 F 66 18 160/81 H 97 Anesthesia: General Endotracheal-GETA Mental Status: Awake Pain Control: Satisfactory Nausea/Vomiting: None Hydration: Adequate Anesthesia-Related Issues: No Anes. Related Issues
[2021-01-31 11:50] VITALS: BP 167/85; PULSE 70; RESP 18; TEMP 36.6; O2SAT 99
--- NOTE | 2021-01-31 13:19 | PM.PNGS ---
Subjective Subjective Date of Service: 01/31/21 Interval history: Complaining of severe incisional pain only partially relieved with oxycodone. Tolerating solid diet. Able to get in and out of bed but reluctant to go very far due to pain. Does not feel ready for discharge. Physical Exam Vital Signs: Vital Signs: Last Vital Signs Temp 97.9 F 01/31/21 11:50 Pulse 70 01/31/21 11:50 Resp 18 01/31/21 11:50 BP 167/85 H 01/31/21 11:50 Pulse Ox 99 01/31/21 11:50 Body Mass Index 37.0 Const: Other: Appears uncomfortable General: cooperative and alert Resp: Effort & Inspection: normal respiratory effort Auscultation: clear to auscultation bilaterally Cardio: Rate: regular rate Rhythm: regular rhythm GI: Other: Slightly round, soft, bowel sounds active, incisions clean dry and intact, appropriately tender postoperatively primarily in her area of incisions Procedures Date of Service Date of Service: 01/31/21 Progress Note: A&P Assessment and plan (1) Acute calculous cholecystitis: Status: Acute Assessment and Plan: Appears stable day 1 post laparoscopic cholecystectomy, but having difficulty with pain control. Does not feel ready for discharge. Likely will be ready next 24 hours. Fall Risk Details Current Medications: Current Medications Acetaminophen (Acetaminophen 325 Mg Tablet) 650 mg PO Q4H PRN PRN Reason: Fever Last Admin: 01/30/21 19:07 Dose: 650 mg Documented by: Acetaminophen (Acetaminophen 325 Mg Tablet) 650 mg PO ONCE PRN PRN Reason: Pain, Mild (Pain Scale 1-3) Albuterol Sulfate (Albuterol Sulfate 90 Mcg 8 Gm Inhaler) 2 puff INHALE RQ4H PRN PRN Reason: wheezing Amlodipine Besylate (Amlodipine Besylate 10 Mg Tablet) 10 mg PO DAILY [facility]; Protocol Last Admin: 01/31/21 08:20 Dose: 10 mg Documented by: Diphenhydramine HCl (Diphenhydramine Hcl 25 Mg Tablet) 25 mg PO Q4H PRN PRN Reason: itching Hydrochlorothiazide (Hydrochlorothiazide 25 Mg Tablet) 25 mg PO DAILY [facility]; Protocol Last Admin: 01/31/21 08:20 Dose: 25 mg Documented by: Sodium Chloride (Ns) 1,000 mls @ 100 mls/hr IVCONT .Q10H [facility] Last Infusion: 01/31/21 11:46 Dose: 100 mls/hr Documented by: Piperacillin Sod/Tazobactam (Sod 3.375 gm/ Sodium Chloride) 50 mls @ 100 mls/hr IV Q6H [facility] Last Infusion: 01/31/21 11:46 Dose: Infused Documented by: Melatonin (Melatonin 3 Mg Tablet) 6 mg PO BEDTIME PRN PRN Reason: Sleep Last Admin: 01/30/21 21:18 Dose: 6 mg Documented by: Morphine Sulfate (Morphine Sulfate 2 Mg/Ml Cartridge) 2 mg IVPUSH Q3H PRN; Protocol PRN Reason: Pain, Moderate (Pain Scale 4-6 Last Admin: 01/30/21 02:38 Dose: 2 mg Documented by: Morphine Sulfate (Morphine Sulfate 4 Mg/Ml Cartridge) 4 mg IVPUSH Q3H PRN; Protocol PRN Reason: Pain, Severe (Pain Scale 7-10) Last Admin: 01/31/21 10:03 Dose: 4 mg Documented by: Ondansetron HCl (Ondansetron Hcl 4 Mg/2 Ml Vial) 4 mg IVPUSH Q4H PRN PRN Reason: Nausea Last Admin: 01/31/21 03:24 Dose: 4 mg Documented by: Oxycodone HCl (Oxycodone Hcl Immed Release 5 Mg Tablet) 5 mg PO Q3H PRN PRN Reason: Pain, Moderate (Pain Scale 4-6 Oxycodone HCl (Oxycodone Hcl Immed Release 5 Mg Tablet) 10 mg PO Q3H PRN PRN Reason: Pain, Severe (Pain Scale 7-10) Last Admin: 01/31/21 08:21 Dose: 10 mg Documented by: Sodium Chloride (0.9 % Sodium Chloride Flush 3 Ml Syringe) 3 ml IVFLUSH QSHIFT [facility] Last Admin: 01/31/21 08:21 Dose: Not Given Documented by: Time Spent With Patient Time: Total time spent is greater than 50% in coordination of care (as documented) at patient's floor/unit and/or counseling patient: Time with patient: 15 - 24 minutes Quality Stroke Does the patient have a stroke diagnosis?: No VTE Prior VTE?: No VTE Risk Level:: Surgical - high VTE Device Contraindication: N/A - Device Ordered VTE Drug Contraindication: Treatment Not Indicated (surgery scheduled)
[2021-01-31 15:33] VITALS: BP 163/84; PULSE 72; RESP 16; TEMP 36.6; O2SAT 98
--- NOTE | 2021-01-31 15:57 | MHC.CM.PN ---
CM MET WITH PT WHO REPORTS SHE LIVES WITH HER MOTHER PT REPORTS SHE IS INDEPENDENT WITH ALL CARE PT USES NO DME AND NO IN HOME SERVICES PT HAS A HCP ON FILE AND REPORTS HER PCP IS DR BERMEO AT [facility] IMM DELIVERED CURRENT DCP IS HOME WITH NO SERVICES FAMILY TO TRANSPORT
[2021-01-31] MEDS: Docusate Sodium 100 MG CAPSULE PO (17:34)
[2021-01-31 19:05] VITALS: BP 169/81; PULSE 67; RESP 18; TEMP 36.4; O2SAT 97
[2021-01-31] MEDS: oxyCODONE HCl Immed Release 5 MG TABLET PO (20:52)
[2021-02-01] VITALS: BP 167/93; PULSE 73; RESP 18; TEMP 36.2; O2SAT 99
[2021-02-01] MEDS: oxyCODONE HCl Immed Release 5 MG TABLET PO (00:56)
[2021-02-01] MEDS: Melatonin 3 MG TABLET 6 MG PO (02:56)
[2021-02-01] MEDS: Piperacillin Sodium/Tazobactam 3.375 GM in 0.9 % Sodium Chloride 50 ML IV (02:57)
[2021-02-01] MEDS: Morphine Sulfate 4 MG/ML CARTRIDGE IVPUSH ×2 (02:58→09:25)
[2021-02-01] MEDS: 0.9 % Sodium Chloride Flush 3 ML SYRINGE IVFLUSH (03:01)
[2021-02-01 04:00] VITALS: BP 157/91; PULSE 73; RESP 18; TEMP 36.3; O2SAT 99
--- NOTE | 2021-02-01 04:27 | PC.NURSE ---
Patient given antibiotic late due to lack of IV access. Multiple attempts by multiple nurses. ED RN inserted 22 into right foot
[2021-02-01 07:40] VITALS: BP 141/83; PULSE 60; RESP 16; TEMP 36.7; O2SAT 98
[2021-02-01] MEDS: amLODIPine Besylate 10 MG TABLET PO (09:25)
[2021-02-01] MEDS: hydroCHLOROthiazide 25 MG TABLET PO (09:25)
[2021-02-01] MEDS: 0.9 % Sodium Chloride 1,000 ML 100 ML IVCONT (09:26)
[2021-02-01] MEDS: oxyCODONE HCl Immed Release 5 MG TABLET 10 MG PO (11:59)
--- NOTE | 2021-02-01 12:01 | MHC.CM.PN ---
PT CLEARED TO DC HOME TODAY WITH NO SERVICES FAMILY TO TRANSPORT
--- NOTE | 2021-02-01 12:09 | P.PNGS_ITS ---
Subjective Subjective Date of Service: 02/01/21 Interval history: She reports ongoing incisional pain, but much improved from yesterday. Continues to tolerate diet. Feels ready for discharge home. Physical Exam Vital Signs: Vital Signs: Last Vital Signs Temp 98.0 F 02/01/21 07:40 Pulse 60 02/01/21 07:40 Resp 16 02/01/21 07:40 BP 141/83 H 02/01/21 07:40 Pulse Ox 98 02/01/21 07:40 Body Mass Index 37.0 Const: General: cooperative, no acute distress and tired appearing Resp: Effort & Inspection: normal respiratory effort Auscultation: clear to auscultation bilaterally Cardio: Rate: regular rate Rhythm: regular rhythm GI: Other: Soft, nondistended, incisions clean and well approximated. Appropriately tender around incisional area. Procedures Date of Service Date of Service: 02/01/21 Progress Note: A&P Assessment and plan (1) Acute calculous cholecystitis: Status: Acute Assessment and Plan: Improving day 2 status post laparoscopic cholecystectomy for acute calculous cholecystitis. She is ready for discharge home today and will follow up with Dr. Clayton in the office. Fall Risk Details Current Medications: Current Medications Acetaminophen (Acetaminophen 325 Mg Tablet) 650 mg PO Q4H PRN PRN Reason: Fever Last Admin: 01/30/21 19:07 Dose: 650 mg Documented by: Acetaminophen (Acetaminophen 325 Mg Tablet) 650 mg PO ONCE PRN PRN Reason: Pain, Mild (Pain Scale 1-3) Albuterol Sulfate (Albuterol Sulfate 90 Mcg 8 Gm Inhaler) 2 puff INHALE RQ4H PRN PRN Reason: wheezing Amlodipine Besylate (Amlodipine Besylate 10 Mg Tablet) 10 mg PO DAILY JUAN; Protocol Last Admin: 02/01/21 09:25 Dose: 10 mg Documented by: Diphenhydramine HCl (Diphenhydramine Hcl 25 Mg Tablet) 25 mg PO Q4H PRN PRN Reason: itching Docusate Sodium (Docusate Sodium 100 Mg Capsule) 100 mg PO BEDTIME JUAN Last Admin: 01/31/21 17:34 Dose: 100 mg Documented by: Hydrochlorothiazide (Hydrochlorothiazide 25 Mg Tablet) 25 mg PO DAILY JUAN; Protocol Last Admin: 02/01/21 09:25 Dose: 25 mg Documented by: Sodium Chloride (Ns) 1,000 mls @ 100 mls/hr IVCONT .Q10H [facility] Last Admin: 02/01/21 09:26 Dose: 100 mls/hr Documented by: Piperacillin Sod/Tazobactam (Sod 3.375 gm/ Sodium Chloride) 50 mls @ 100 mls/hr IV Q6H [facility] Last Admin: 02/01/21 11:59 Dose: Not Given Documented by: Melatonin (Melatonin 3 Mg Tablet) 6 mg PO BEDTIME PRN PRN Reason: Sleep Last Admin: 02/01/21 02:56 Dose: 6 mg Documented by: Morphine Sulfate (Morphine Sulfate 2 Mg/Ml Cartridge) 2 mg IVPUSH Q3H PRN; Protocol PRN Reason: Pain, Moderate (Pain Scale 4-6 Last Admin: 01/30/21 02:38 Dose: 2 mg Documented by: Morphine Sulfate (Morphine Sulfate 4 Mg/Ml Cartridge) 4 mg IVPUSH Q3H PRN; Protocol PRN Reason: Pain, Severe (Pain Scale 7-10) Last Admin: 02/01/21 09:25 Dose: 4 mg Documented by: Ondansetron HCl (Ondansetron Hcl 4 Mg/2 Ml Vial) 4 mg IVPUSH Q4H PRN PRN Reason: Nausea Last Admin: 01/31/21 03:24 Dose: 4 mg Documented by: Oxycodone HCl (Oxycodone Hcl Immed Release 5 Mg Tablet) 5 mg PO Q3H PRN PRN Reason: Pain, Moderate (Pain Scale 4-6 Last Admin: 02/01/21 00:56 Dose: 5 mg Documented by: Oxycodone HCl (Oxycodone Hcl Immed Release 5 Mg Tablet) 10 mg PO Q3H PRN PRN Reason: Pain, Severe (Pain Scale 7-10) Last Admin: 02/01/21 11:59 Dose: 10 mg Documented by: Sodium Chloride (0.9 % Sodium Chloride Flush 3 Ml Syringe) [facility] Last Admin: 02/01/21 09:12 Dose: Not Given Documented by: Time Spent With Patient Time: Total time spent is greater than 50% in coordination of care (as documented) at patient's floor/unit and/or counseling patient: Time with patient: less than 15 minutes Quality Stroke Does the patient have a stroke diagnosis?: No VTE Prior VTE?: No VTE Risk Level:: Surgical - high VTE Device Contraindication: N/A - Device Ordered VTE Drug Contraindication: Treatment Not Indicated (surgery scheduled)
== END 2021-02-01 12:32 | disposition home or self-care (01) | DRG 419 ==
LOC: HO.ED 01-30 00:01 → HO.EDOVER 01-30 00:28 → HO.S3 01-30 04:32
PROVIDERS: Admitting Provider Hospitalist; Emergency Provider Internal Medicine; Visit Provider Surgery
PROC: 0FT44ZZ Resection of Gallbladder, Percutaneous Endoscopic Approach (ICD-10-PCS; CPT 47562; principal; 2021-01-30 14:10)
DX: K80.00 Calculus of gallbladder with acute cholecystitis without obstruction (principal); Z20.822 Contact with and (suspected) exposure to COVID-19; Z79.899 Other long term (current) drug therapy
CPT/HCPCS: 36415; 76705; 80053; 81003; 81025; 85025; 85610; 87635; 88304; 99024; 99285; J1100; J1170; J2250; J2270; J2405; J2543; J3010

== ENCOUNTER → 2021-02-03 11:44 | Outpatient (BNVA) | payer OTHER, SELFPAY | PROVIDERS: Referring Provider Nurse Practitioner Primary Care; Visit Provider Surgery | DX: R19.7 Diarrhea, unspecified (principal); I10 Essential (primary) hypertension; I34.0 Nonrheumatic mitral (valve) insufficiency; Z90.49 Acquired absence of other specified parts of digestive tract; Z98.890 Other specified postprocedural states; Z79.891 Long term (current) use of opiate analgesic; Z79.899 Other long term (current) drug therapy | CPT/HCPCS: 99212 ==

== ENCOUNTER 2022-03-20 17:00 | Emergency (ER) | payer OTHER, SELFPAY ==
--- NOTE | 2022-03-20 | ECG_ITS ---
Test Reason : CX PAIN/HTN Blood Pressure : / mmHG Vent. Rate : 082 BPM Atrial Rate : 082 BPM P-R Int : 124 ms QRS Dur : 106 ms QT Int : 366 ms P-R-T Axes : 015 049 024 degrees QTc Int : 427 ms Normal sinus rhythm ST & T wave abnormality, consider anterior ischemia Abnormal ECG When compared with ECG of 29-JAN-2020 17:16, T wave inversion no longer evident in Inferior leads T wave inversion no longer evident in Lateral leads Referred By: Generic ED Physician Electronically Signed By:SHADIA WALTERS MD
[2022-03-20 17:15] VITALS: BP 189/103; PULSE 93; RESP 18; TEMP 36.6; O2SAT 98; BMI 45.2
--- NOTE | 2022-03-20 17:33 | ED.GENADULT ---
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 She states that these episodes last approximately 5 minutes and occur on exertion or at rest. She denies any associated fever, chills, cough, sore throat, GI or symptoms. She has recently been seen at [facility] 2 weeks ago for a swollen left ankle that she states was not associated with a traumatic injury and has not had any erythema or induration and [facility] put her in an air cast and told her to take ibuprofen. Patient states that the left ankle swelling has not improved. Related Data Home Medications Medication Instructions Recorded Confirmed hydrochlorothiazide 25 mg tablet 25 mg PO QAM 06/30/20 02/03/21 beclomethasone dipropionate 40 1 inh inhalation BID 02/03/21 02/03/21 mcg/actuation HFA breath activated aerosol (Qvar RediHaler) Previous Rx's Medication Instructions Recorded acetaminophen 500 mg tablet 1,000 mg PO Q6H #60 tabs 01/30/21 docusate sodium 100 mg capsule 100 mg PO BID #30 caps 01/30/21 (Colace) oxycodone 5 mg tablet 5 mg PO Q4H PRN pain 7 days #20 01/30/21 tabs amlodipine 5 mg tablet 10 mg PO DAILY #180 tabs 07/30/21 Allergies Allergy/AdvReac Type Severity Reaction Status Date / Time No Known Allergies Allergy Verified 03/20/22 17:15 Review of Systems Review of Systems: Pertinent positives and negatives as stated in HPI 10 point review of systems is otherwise negative. [facility] Past Medical History Source: nursing notes reviewed Medical History Essential hypertension Non-rheumatic mitral regurgitation Surgical History History of brain shunt History of cardiac catheterization History of foot surgery History of laparoscopy History of lumbar fusion (~2009) S/P laparoscopic cholecystectomy Status post catheter-placed plug or coil occlusion of PDA Family History Family History Father Heart attack Stroke Heart disease Mother History of cholecystectomy Brother No problems noted. Brother No problems noted. Sister No problems noted. Maternal Grandmother Breast cancer Social History Social History Household Members: Family Housing: Apartment Do you presently have visiting nurse or other home services: No Alcohol intake: current Alcohol intake frequency: holidays/special occasions only Patient Tobacco Use Status: Never used Tobacco Advance Directives: No Advance Directives Information Provided: Yes service: No Current occupational status: unemployed Physical Exam ED Vital Signs: Vital Signs - 24 hr 03/20/22 17:15 03/20/22 18:00 Temperature 97.9 F Pulse Rate 93 84 Respiratory Rate 18 18 Blood Pressure 189/103 H 148/76 H Pulse Oximetry 98 97 Oxygen Delivery Method Room Air Room Air BMI result Body Mass Index 45.2 VITAL SIGNS: Reviewed. GENERAL: Elevated BMI, Well developed, well nourished, in no acute distress. HEAD: Normocephalic/atraumatic EYES: PERRLA, EOMI EARS: Ext canals without abnormality OROPHARYNX: no oral lesions noted, posterior pharynx clear LUNGS: Normal breath sounds. No adventitious sounds or accessory muscle use. SpO2<98>; CHEST WALL: There is reproducible chest pain when palpation over the midsternal. CARDIOVASCULAR: Regular rate and rhythm without noted murmurs, no JVD or lower extremity edema. ABDOMEN: Soft, non-tender, non-distended with bowel sounds. MUSCULOSKELETAL: No tenderness, deformities, or effusions noted on gross inspection. EXTREMITIES: No cyanosis, clubbing or edema; LEFT ANKLE: There is mild swelling to the ankle area, no erythema/induration and sensation as well as vascular evaluation is intact. SKIN: Inspection of the skin reveals no rashes NEUROLOGIC: Alert and oriented x 4. Strength and sensation to light touch were grossly intact x 4. Course Course Course Narrative: 26-year-old female with history and clinical presentation consistent with uncontrolled blood pressure despite medication and atypical chest pain with component of reproducibility, no hypoxia and symptoms are inconsistent with a pericarditis or PE. Review of all investigations consistent with musculoskeletal/costochondritis in nature given the reproducibility on palpation. On further questioning regarding patient's left ankle swelling she states that is been ongoing for 2 weeks, resolves overnight, and then throughout the day the more she is on her feet the more swelling occurs lowering clinical suspicion for DVT. I have noted that the [id number]-[id number]. Patient's blood pressure resolved on its own. I discussed all results, findings and the plan with the patient at bedside. Medications Administered Discontinued Medications Generic Name Dose Route Start Last Admin Trade Name Freq PRN Reason Stop Dose Admin Labetalol HCl 5 mg 03/20/22 17:32 03/20/22 18:24 Labetalol Hcl 100 Mg/20 Ml Vial IVPUSH 03/20/22 17:33 Not Given ONCE ONE Medical Decision Making Lab Data Result diagrams: 03/20/22 18:13 03/20/22 18:13 Labs: Lab Results 03/20/22 03/20/22 03/20/22 Range/Units 18:13 18:13 18:13 WBC 7.0 (4.8-10.8) X10*3/uL RBC 4.64 (4.20-5.50) X10*6/uL Hgb 12.5 (12.0-16.0) g/dl Hct 37.7 (37.0-47.0) % MCV 81.3 (80.0-98.0) fL MCH 26.9 L (27.0-33.0) pg MCHC 33.2 (31.0-35.0) g/dl RDW 12.7 (11.0-16.0) % Plt Count 254 (160-400) X10*3/uL MPV 9.0 L (9.4-12.3) fL Immature Gran % (Auto) 0.3 (0.0-0.4) % Neut % (Auto) 58.9 (45-73) % Lymph % (Auto) 27.5 (20-40) % Kleberg % (Auto) 8.8 (2-11) % Eos % (Auto) 4.1 H (0-4) % Baso % (Auto) 0.4 (0-2) % Lymph # (Auto) 1.9 (1.2-4.9) X10*3/uL Kleberg # (Auto) 0.6 (0.1-1.2) X10*3/uL Eos # (Auto) 0.3 (0.0-0.4) X10*3/uL Baso # (Auto) 0.0 (0.0-0.2) X10*3/uL Abs Immat Gran (auto) 0.02 (0.00-0.03) X10*3/uL Absolute Neuts (auto) 4.1 (2.0-8.3) x10*3/uL Absolute Nucleated RBC 0.000 (0.0-0.012) X10*3/uL Nucleated RBC % (auto) 0.0 (0.0-0.2) /100WBC D-Dimer High Sensitivty NG/ML Sodium 138 (135-145) mmol/L Potassium 3.8 (3.3-5.1) mmol/L Chloride 105 (96-108) mmol/L Carbon Dioxide 24 (22-29) mmol/L Anion Gap 13 (12-20) BUN 14 (9-16) mg/dL Creatinine 0.79 (0.5-1.4) mg/dL Estim Creat Clear Calc 119.1 Estimated GFR > 60 Random Glucose 106 (60-115) mg/dL Calcium 9.2 (8.4-10.2) mg/dL Total Bilirubin 0.2 (0.0-1.0) mg/dL AST 24 (5-31) U/L ALT 28 (0-31) U/L Alkaline Phosphatase 84 (39-117) U/L Troponin I High Sens 4.4 (<3.5-17.0) ng/L Total Protein 7.2 (6.5-8.0) g/dL Albumin 4.1 (3.5-5.0) g/dL 03/20/22 Range/Units 18:13 WBC (4.8-10.8) X10*3/uL RBC (4.20-5.50) X10*6/uL Hgb (12.0-16.0) g/dl Hct (37.0-47.0) % MCV (80.0-98.0) fL MCH (27.0-33.0) pg MCHC (31.0-35.0) g/dl RDW (11.0-16.0) % Plt Count (160-400) X10*3/uL MPV (9.4-12.3) fL Immature Gran % (Auto) (0.0-0.4) % Neut % (Auto) (45-73) % Lymph % (Auto) (20-40) % Kleberg % (Auto) (2-11) % Eos % (Auto) (0-4) % Baso % (Auto) (0-2) % Lymph # (Auto) (1.2-4.9) X10*3/uL Kleberg # (Auto) (0.1-1.2) X10*3/uL Eos # (Auto) (0.0-0.4) X10*3/uL Baso # (Auto) (0.0-0.2) X10*3/uL Abs Immat Gran (auto) (0.00-0.03) X10*3/uL Absolute Neuts (auto) (2.0-8.3) x10*3/uL Absolute Nucleated RBC (0.0-0.012) X10*3/uL Nucleated RBC % (auto) (0.0-0.2) /100WBC D-Dimer High Sensitivty 269 NG/ML Sodium (135-145) mmol/L Potassium (3.3-5.1) mmol/L Chloride (96-108) mmol/L Carbon Dioxide (22-29) mmol/L Anion Gap (12-20) BUN (9-16) mg/dL Creatinine (0.5-1.4) mg/dL Estim Creat Clear Calc Estimated GFR Random Glucose (60-115) mg/dL Calcium (8.4-10.2) mg/dL Total Bilirubin (0.0-1.0) mg/dL AST (5-31) U/L ALT (0-31) U/L Alkaline Phosphatase (39-117) U/L Troponin I High Sens (<3.5-17.0) ng/L Total Protein (6.5-8.0) g/dL Albumin (3.5-5.0) g/dL ECG Data Attestation: I personally reviewed and interpreted this ECG as follows: Prior ECG tracings: available for review (06/30/2020) Interpretation: Normal sinus rhythm, HR-82, no STEMI but noted ST changes in V4 which or different than prior EKG, NJ/QTC are within normal limits. Discharge Plan Discharge Clinical Impression: Atypical chest pain, Costochondritis, Left ankle swelling Patient Disposition: Home, Self-Care Instructions: Chest Wall Pain (ED), Chest Pain (ED), Costochondritis (ED), Swollen Ankle Joint (ED) Additional Instructions: 1. Resume all home medications as prescribed. Recommend compression stocking to the left lower extremity. 2. Tylenol 1000 mg, orally, every 6 hours as needed for pain control. Do not exceed 4000 mg within 24 hours. 3. Ibuprofen 400 mg, orally with milk or food, every 6 hours as needed for pain control. You may use this in conjunction with the Tylenol for improved relief. 4. Recommend lidocaine patch, apply to area of maximal tenderness as directed on the outside packaging. 5. Please follow-up with Dr. Kaminski regarding your blood pressure by calling the office on Tuesday. Return to the ER for any worsening of your symptoms. Prescriptions: No Action amlodipine 5 mg tablet 10 mg PO DAILY Qty: 180 0RF Rx Instructions: Please call and schedule cardiology follow-up acetaminophen 500 mg tablet 1,000 mg PO Q6H Qty: 60 1RF docusate sodium [Colace] 100 mg capsule 100 mg PO BID Qty: 30 1RF oxycodone 5 mg tablet 5 mg PO Q4H PRN (Reason: pain) 7 Days Qty: 20 0RF hydrochlorothiazide 25 mg tablet 25 mg PO QAM Qvar RediHaler 40 mcg/actuation HFA aerosol breath activated 1 inh inhalation BID Referrals: Mami Payne [Emergency Nurse] - Alannah Bernard NP [Primary Care Provider] - Josef Kaminski MD [Physician] -
--- OUTSIDE RECORDS SUMMARY | 2022-03-20 17:40 | XMS_ITS | Continuity of Care Document ---
:1995 Author Organization [facility] Address [address] [place] [phone]- Care Team Providers Name Role Phone Flora JOHNSON, Johanna Victoria Primary Care Physician Encounter [facility] [place] Date(s): 05/30/20 - 06/29/20 [facility] [address] [place] [id number] Allergies, Adverse Reactions, Alerts Substance Reaction Severity Status NKA Active Medications Albuterol 0 Refills, Maintenance Start Date: 08/14/12 Status: OrderedamLODIPine 5 mg oral tablet 5 mg, 1, tablet, By Mouth, 2 times a day, Refills 0, Maintenance, 04/03/19 17:40:58 EST Start Date: 04/03/19 Status: Orderedhydrochlorothiazide 50 mg oral tablet 50 mg, 1, tablet, By Mouth, Daily, # 30 tablet, Refills 5, Tot. Refills 5, Maintenance, 05/13/17 14:08:49, Route to Pharmacy Electronically, [id number], [facility]/pharmacy #[id number] Start Date: 05/13/17 Status: OrderedQvar Redihaler 40 mcg/inh inhalation aerosol 1 puffs, Inhalation, 2 times a day, 0 Refills, Maintenance, 06/02/20 12:05:00 EST, Partial fill uponpatient request if the prescription is for a schedule II opioid drug. 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
--- OUTSIDE RECORDS SUMMARY | 2022-03-20 17:40 | XMS_ITS | Continuity of Care Document ---
:1995 Author Organization [facility] Address [address] [place] [phone]- Care Team Providers Name Role Phone Flora JOHNSON, Johanna Victoria Primary Care Physician Encounter [facility] [place] Date(s): 06/02/20 - 07/02/20 [facility] [address] [place] [id number] Attending Physician: Helena Mcadams Admitting Physician: AdmtrHelena Referring Physician: Admtr, Ar8 Allergies, Adverse Reactions, Alerts Substance Reaction Severity [...] Maintenance, 05/13/17 14:08:49, Route to Pharmacy Electronically, [id number], [facility]/pharmacy #[id number] Start Date: 05/13/17 Status: OrderedQvar Redihaler [...]
[2022-03-20 18:00] VITALS: BP 148/76; PULSE 84; RESP 18; O2SAT 97
[2022-03-20 18:18] LABS: MANUAL DIFF FLAG NO
[2022-03-20 18:20] LABS: Basophils Percent Auto 0.4 % (0-2); Eosinophils Absolute Auto 0.3 X10*3/uL (0.0-0.4); Eosinophils Percent Auto 4.1 % (0-4); Hematocrit 37.7 % (37.0-47.0); Hemoglobin 12.5 g/dl (12.0-16.0); Imm Gran Abs Auto 0.02 X10*3/uL (0.00-0.03); Imm Gran Pct Auto 0.3 % (0.0-0.4); Lymphocytes Absolute Auto 1.9 X10*3/uL (1.2-4.9); Lymphocytes Percent Auto 27.5 % (20-40); Mean Corpuscular HGB Conc 33.2 g/dl (31.0-35.0); Mean Corpuscular Hemoglobin 26.9 pg (27.0-33.0); Mean Corpuscular Volume 81.3 fL (80.0-98.0); Monocytes Absolute Auto 0.6 X10*3/uL (0.1-1.2); Monocytes Percent Auto 8.8 % (2-11); Neutrophils Absolute Auto 4.1 x10*3/uL (2.0-8.3); Neutrophils Percent Auto 58.9 % (45-73); Platelet Count 254 X10*3/uL (160-400); Red Blood Count 4.64 X10*6/uL (4.20-5.50); Red Cell Distribution Width 12.7 % (11.0-16.0)
--- NOTE | 2022-03-20 18:24 | PC.NURSE ---
patient a&ox3, security monitor nsr, vss, bp med held by provider due to updated bp, iv inserted, labs drawn, pt c/o mid chest pain and swelling of lt ankle, call hou within reach, will continue to monitor
[2022-03-20 18:26] LABS: D Dimer High Sensitivity 269 NG/ML
[2022-03-20 18:36] LABS: Alanine Aminotransferase 28 U/L (0-31); Albumin Level 4.1 g/dL (3.5-5.0); Alkaline Phosphatase 84 U/L (39-117); Anion Gap 13 (12-20); Aspartate Amino Transferase 24 U/L (5-31); Bilirubin Total 0.2 mg/dL (0.0-1.0); Blood Urea Nitrogen 14 mg/dL (9-16); Calcium 9.2 mg/dL (8.4-10.2); Carbon Dioxide 24 mmol/L (22-29); Chloride 105 mmol/L (96-108); Creatinine Clr Calc Pharmacy 119.1; Estimated Glomerular Filt Rate > 60; Glucose Random 106 mg/dL (60-115); Potassium 3.8 mmol/L (3.3-5.1); Sodium 138 mmol/L (135-145); Total Protein 7.2 g/dL (6.5-8.0)
[2022-03-20 18:43] LABS: Troponin-I High Sensitivity 4.4 ng/L (<3.5-17.0)
[2022-03-20] MEDS: Ketorolac Tromethamine 15 MG/ML VIAL IM (20:09)
[2022-03-20] MEDS: Acetaminophen 325 MG TABLET 975 MG PO (20:10)
--- NOTE | 2022-03-20 21:01 | PC.NURSE ---
Assumed care of pt. at 1900. Pt. resting quietly in bed at this time. Pt. reports pain 7/10 on the chest and 5/10 on the ankle. Pt. to be dc'd home.
== END 2022-03-20 21:04 | disposition home or self-care (01) ==
PROVIDERS: Emergency Provider Student in an Organized Health Care Education/Training Program; PCP Nurse Practitioner Primary Care
DX: R07.89 Other chest pain (principal); M94.0 Chondrocostal junction syndrome [Tietze]; R22.41 Localized swelling, mass and lump, right lower limb; I10 Essential (primary) hypertension; Z90.49 Acquired absence of other specified parts of digestive tract; Z79.899 Other long term (current) drug therapy
CPT/HCPCS: 36415; 80053; 84484; 85025; 85379; 93005; 96372; 99284; J1885

== ENCOUNTER 2022-04-21 19:43 | Emergency (ER) | payer OTHER, SELFPAY ==
--- NOTE | ~2022-04-21 | XR_ITS ---
EXAMINATION: XR ANKLE, LEFT CLINICAL INFORMATION: Left ankle swelling. COMPARISON: None TECHNIQUE: AP, lateral, and mortise views of the left ankle. FINDINGS: There is moderate bimalleolar and lower extremity soft tissue edema. The ankle mortise and the subtalar joints are normal. No visible acute fracture or dislocation seen. XR/XR ankle LT min 3V IMPRESSION: Moderate bimalleolar and lower extremity soft tissue edema. No visible acute fracture or dislocation seen.
--- NOTE | ~2022-04-21 | US_ITS ---
EXAMINATION: US VENOUS ULTRASOUND WITH DOPPLER LOWER EXTREMITY, LEFT CLINICAL INFORMATION: Left foot and knee swelling. Rule out DVT COMPARISON: None TECHNIQUE: Ultrasound of the deep veins is performed from the hip to the calf with compression sonography and color and pulse Doppler assessment. Spectral analysis with color-flow imaging is performed. FINDINGS: There is normal venous compression and respiratory variation and augmented flow. The visualized common femoral vein, superficial femoral vein, profunda femoral vein, popliteal vein, and the trifurcation region shows no evidence of deep venous thrombosis. There is no significant popliteal fossa cyst. If the patient's symptoms persist, followup ultrasound in 5 days 7 days might be of value to exclude proximal propagation from a non-visualized calf vein. US/US venous duplex LE LT IMPRESSION: No DVT demonstrated in the left lower extremity.
[2022-04-21 19:44] VITALS: BP 185/96; PULSE 84; RESP 20; TEMP 36.4; O2SAT 99; BMI 42.0
--- NOTE | 2022-04-21 19:48 | ED.LOWEXIN ---
HPI - Extremity Injury (Lower) General Chief Complaint: Extremity Problem <Richar Yarbrough MD - Last Filed: 04/21/22 19:56> Stated Complaint: L Ankle swollen for the past month <Richar Yarbrough MD - Last Filed: 04/21/22 19:56> Time Seen by Provider: 04/21/22 20:07 <Richar Yarbrough MD - Last Filed: 04/21/22 19:56> Source: patient <FLASH Hernández - Last Filed: 04/21/22 23:05> Mode of arrival: ambulatory <FLASH Hernández - Last Filed: 04/21/22 23:05> Limitations: no limitations <FLASH Hernández - Last Filed: 04/21/22 23:05> History of Present Illness HPI Narrative: This is a 26-year-old female past medical history significant for congenital patent ductus arteriosus (PDA) which was repaired, STEMI, non rheumatic mitral regurgitation presenting to the emergency department with complaints of left lower extremity swelling worsening over. Patient reports pain and swelling to the left lower extremity from the ankle to the knee, reporting pain throughout the that area, described as sharp pain that is making it difficult for her to ambulate. Pain and swelling worse after prolonged periods of standing. Denies history of PE or DVT. Not on blood thinners. Denies chest pain, shortness of breath, nausea, vomiting, trauma, fevers, chills, headache, vision changes in dizziness. To note patient tells me that she has been seen here and at [facility] and has had negative workups for the same thing over the past month. <FLASH Hernández - Last Filed: 04/21/22 23:05> Related Data Home Medications: Home Medications Medication Instructions Recorded Confirmed hydrochlorothiazide 25 mg tablet 25 mg PO QAM 06/30/20 02/03/21 beclomethasone dipropionate 40 1 inh inhalation BID 02/03/21 02/03/21 mcg/actuation HFA breath activated aerosol (Qvar RediHaler) Previous Rx's Medication Instructions Recorded acetaminophen 500 mg tablet 1,000 mg PO Q6H #60 tabs 01/30/21 docusate sodium 100 mg capsule 100 mg PO BID #30 caps 01/30/21 (Colace) oxycodone 5 mg tablet 5 mg PO Q4H PRN pain 7 days #20 01/30/21 tabs amlodipine 5 mg tablet 10 mg PO DAILY #180 tabs 07/30/21 <Richar Yarbrough MD - Last Filed: 04/21/22 19:56> Allergies/Adverse Reactions: Allergies Allergy/AdvReac Type Severity Reaction Status Date / Time No Known Allergies Allergy Verified 04/21/22 19:48 <Richar Yarbrough MD - Last Filed: 04/21/22 19:56> Review of Systems Review of Systems: Constitutional : No Weight loss, No Fever, No Chills, No Fatigue, No Malaise ENT/Mouth : No sore throat, No Rhinorrhea Eyes: No Eye Pain, No Swelling, No Redness Cardiovascular : No Chest Pain, No SOB, No Dyspnea on Exertion, No Orthopnea, No Edema, No Palpitations Respiratory : No Cough, No Sputum, No Wheezing Gastrointestinal : No Nausea, No Vomiting, No Diarrhea, No Constipation, No abdominal Pain, No Hematochezia, No Melena Genitourinary : No Dysuria, No Urinary Frequency, No Hematuria, Musculoskeletal : No joint pain, No Myalgias, No Joint Swelling, + LLE swelling Skin : No Skin Lesions, No rash Neuro : No Weakness, No Numbness, No Dizziness, No Headache Psych : No Anxiety/Panic, No Depression All other systems reviewed and are negative <FLASH Hernández - Last Filed: 04/21/22 23:05> Yes all other systems are reviewed and are negative <FLASH Hernández - Last Filed: 04/21/22 23:05> [facility] Past Medical History Attestation statement: The following information was validated with the patient. <FLASH Hernández - Last Filed: 04/21/22 23:05> Source: old records reviewed and nursing notes reviewed <FLASH Hernández - Last Filed: 04/21/22 23:05> Medical History: Medical History Essential hypertension Non-rheumatic mitral regurgitation <Richar Yarbrough MD - Last Filed: 04/21/22 19:56> Surgical History: Surgical History History of brain shunt History of cardiac catheterization History of foot surgery History of laparoscopy History of lumbar fusion (~2009) S/P laparoscopic cholecystectomy Status post catheter-placed plug or coil occlusion of PDA <Richar Yarbrough MD - Last Filed: 04/21/22 19:56> Family History Family History: Family History Father Heart attack Stroke Heart disease Mother History of cholecystectomy Brother No problems noted. Brother No problems noted. Sister No problems noted. Maternal Grandmother Breast cancer <Richar Yarbrough MD - Last Filed: 04/21/22 19:56> Social History Social History: Social History Household Members: Family Housing: Apartment Do you presently have visiting nurse or other home services: No Alcohol intake: current Alcohol intake frequency: holidays/special occasions only Patient Tobacco Use Status: Never used Tobacco Advance Directives: No Advance Directives Information Provided: Yes service: No Current occupational status: unemployed <Richar Yarbrough MD - Last Filed: 04/21/22 19:56> Physical Exam Vital Signs: Vital Signs: Last Vital Signs Temp 97.6 F 04/21/22 19:44 Pulse 84 04/21/22 19:44 Resp 20 04/21/22 19:44 BP 185/96 H 04/21/22 19:44 Pulse Ox 99 04/21/22 19:44 O2 Del Method 04/21/22 19:44 BMI result Body Mass Index 42.0 <Richar Yarbrough MD - Last Filed: 04/21/22 19:56> Vital Signs: Last Vital Signs Temp 97.6 F 04/21/22 19:44 Pulse 84 04/21/22 19:44 Resp 20 04/21/22 19:44 BP 185/96 H 04/21/22 19:44 Pulse Ox 99 04/21/22 19:44 O2 Del Method 04/21/22 19:44 BMI result Body Mass Index 42.0 vss <FLASH Hernández - Last Filed: 04/21/22 23:05> Appearance: Alert.? Oriented X3.? No acute distress.? Head: Normocephalic, atraumatic, no step-offs or deformities Eyes: Pupils equal, round and reactive to light.? ENT: Pharynx normal.? Neck: Normal inspection.? Neck supple.? CVS: Normal heart rate and rhythm.? Pulses normal.? Respiratory: No respiratory distress.? Breath sounds normal.? Abdomen: Soft and nontender.? Skin: Skin warm and dry.? Normal skin color.? Normal skin turgor.? Extremities: No lower extremity edema.? No calf ttp. 5/5 strength to bilateral upper and lower extremities 1+ pitting edema to LLE from knee down. Normal RLE. Normal sensation to LE. 2+ DP,PT,AT equal and b/l. Neuro: Oriented X 3.? No motor deficit.? No sensory deficit. CN 2-12 intact . Ambulating with steady gait coordination <FLASH Hernández - Last Filed: 04/21/22 23:05> Course Course Course Narrative: RME: 26-year-old female with history of congenital patent ductus arteriosus (PDA) which was repaired, and STEMI, non rheumatic mitral regurgitation presents emergency department for evaluation of left lower extremity swelling x1 month, getting worse over the past week. She states she is having constant, sharp pain from her ankle to her knee and is having difficulty walking. Physical examination did reveal swelling of the patient's left ankle. I ordered a CBC, CMP, PT/INR, PTT, urinalysis, quantitative beta-hCG, left lower extremity duplex ultrasound. Patient appears stable no sent back to the waiting room until a bed is available. <Richar Yarbrough MD - Last Filed: 04/21/22 19:56> Reevaluation(s) Reevaluation #1: CBC appears to be within normal limits. BNP within normal limits. Coags within normal limits. Venous duplex with no acute findings, no DVT in the left lower extremity. X-ray of the left ankle with moderate by malleolar and lower extremity soft tissue edema. No acute fractures or dislocation. Chemistry pending. <FLASH Hernández - Last Filed: 04/21/22 23:05> Time: 22: <FLASH Hernández - Last Filed: 04/21/22 23:05> Reevaluation #2: At this time patient will be discharged home. Advised to follow-up with PCP and return with new or worsening symptoms. Educated patient on diagnosis and treatment plan, answered all question, patient verbalizes understanding. At this time patient will be discharged home, advised to return with new or worsening symptoms. Educated on worrisome signs and symptoms and when to return. At this time I feel comfortable discharge home. <FLASH Hernández - Last Filed: 04/21/22 23:05> Time: : <FLASH Hernández - Last Filed: 04/21/22 23:05> Medical Decision Making Medical Decision Making MDM Narrative: 2007 26-year-old female presents with left lower extremity swelling x1 month progressively worsening. Not on blood thinners history of DVT shortness breath. Denies trauma. Physical examination with 1+ pitting edema to the left lower extremity. Right lower extremity within normal limits. Normal sensation. Neurovascularly intact. Normal pulses. Concerns for possible DVT however most likely dependent edema. Unlikely threatened limb , arterial occlusion. Low suspicion for CHF. Plan at this time is DVT study, coags, basic labs. <FLASH Hernández - Last Filed: 04/21/22 23:05> Lab Data Result Diagrams: : 04/21/22 21:44 04/21/22 21:44 <Richar Yarbrough MD - Last Filed: 04/21/22 19:56> Labs: Lab Results 04/21/22 04/21/22 04/21/22 Range/Units 21:44 21:44 21:44 WBC 9.4 (4.8-10.8) X10*3/uL RBC 4.67 (4.20-5.50) X10*6/uL Hgb 12.7 (12.0-16.0) g/dl Hct 37.5 (37.0-47.0) % MCV 80.3 (80.0-98.0) fL MCH 27.2 (27.0-33.0) pg MCHC 33.9 (31.0-35.0) g/dl RDW 13.1 (11.0-16.0) % Plt Count 277 (160-400) X10*3/uL MPV 9.2 L (9.4-12.3) fL Immature Gran % (Auto) 0.3 (0.0-0.4) % Neut % (Auto) 58.7 (45-73) % Lymph % (Auto) 28.6 (20-40) % [place] % (Auto) 6.3 (2-11) % Eos % (Auto) 5.5 H (0-4) % Baso % (Auto) 0.6 (0-2) % Lymph # (Auto) 2.7 (1.2-4.9) X10*3/uL [place] # (Auto) 0.6 (0.1-1.2) X10*3/uL Eos # (Auto) 0.5 H (0.0-0.4) X10*3/uL Baso # (Auto) 0.1 (0.0-0.2) X10*3/uL Abs Immat Gran (auto) 0.03 (0.00-0.03) X10*3/uL Absolute Neuts (auto) 5.5 (2.0-8.3) x10*3/uL Absolute Nucleated RBC 0.000 (0.0-0.012) X10*3/uL Nucleated RBC % (auto) 0.0 (0.0-0.2) /100WBC PT 11.3 (10.0-13.1) SEC INR 1.0 (0.9-1.1) APTT 30.8 (26.0-36.4) SEC Sodium 139 (135-145) mmol/L Potassium 4.1 (3.3-5.1) mmol/L Chloride 106 (96-108) mmol/L Carbon Dioxide 24 (22-29) mmol/L Anion Gap 13 (12-20) BUN 15 (9-16) mg/dL Creatinine 0.75 (0.5-1.4) mg/dL Estim Creat Clear Calc 120.0 Estimated GFR > 60 Random Glucose 92 (60-115) mg/dL Calcium 9.7 (8.4-10.2) mg/dL Total Bilirubin 0.3 (0.0-1.0) mg/dL AST 30 (5-31) U/L ALT 31 (0-31) U/L Alkaline Phosphatase 92 (39-117) U/L B-Natriuretic Peptide (<100) pg/mL Total Protein 7.3 (6.5-8.0) g/dL Albumin 4.1 (3.5-5.0) g/dL Beta HCG, Quant < 2 mIU/mL 04/21/22 Range/Units 21:44 WBC (4.8-10.8) X10*3/uL RBC (4.20-5.50) X10*6/uL Hgb (12.0-16.0) g/dl Hct (37.0-47.0) % MCV (80.0-98.0) fL MCH (27.0-33.0) pg MCHC (31.0-35.0) g/dl RDW (11.0-16.0) % Plt Count (160-400) X10*3/uL MPV (9.4-12.3) fL Immature Gran % (Auto) (0.0-0.4) % Neut % (Auto) (45-73) % Lymph % (Auto) (20-40) % [place] % (Auto) (2-11) % Eos % (Auto) (0-4) % Baso % (Auto) (0-2) % Lymph # (Auto) (1.2-4.9) X10*3/uL [place] # (Auto) (0.1-1.2) X10*3/uL Eos # (Auto) (0.0-0.4) X10*3/uL Baso # (Auto) (0.0-0.2) X10*3/uL Abs Immat Gran (auto) (0.00-0.03) X10*3/uL Absolute Neuts (auto) (2.0-8.3) x10*3/uL Absolute Nucleated RBC (0.0-0.012) X10*3/uL Nucleated RBC % (auto) (0.0-0.2) /100WBC PT (10.0-13.1) SEC INR (0.9-1.1) APTT (26.0-36.4) SEC Sodium (135-145) mmol/L Potassium (3.3-5.1) mmol/L Chloride (96-108) mmol/L Carbon Dioxide (22-29) mmol/L Anion Gap (12-20) BUN (9-16) mg/dL Creatinine (0.5-1.4) mg/dL Estim Creat Clear Calc Estimated GFR Random Glucose (60-115) mg/dL Calcium (8.4-10.2) mg/dL Total Bilirubin (0.0-1.0) mg/dL AST (5-31) U/L ALT (0-31) U/L Alkaline Phosphatase (39-117) U/L B-Natriuretic Peptide 16 (<100) pg/mL Total Protein (6.5-8.0) g/dL Albumin (3.5-5.0) g/dL Beta HCG, Quant mIU/mL <Richar Yarbrough MD - Last Filed: 04/21/22 19:56> Lab Results 04/21/22 04/21/22 04/21/22 Range/Units 21:44 21:44 21:44 WBC 9.4 (4.8-10.8) X10*3/uL RBC 4.67 (4.20-5.50) X10*6/uL Hgb 12.7 (12.0-16.0) g/dl Hct 37.5 (37.0-47.0) % MCV 80.3 (80.0-98.0) fL MCH 27.2 (27.0-33.0) pg MCHC 33.9 (31.0-35.0) g/dl RDW 13.1 (11.0-16.0) % Plt Count 277 (160-400) X10*3/uL MPV 9.2 L (9.4-12.3) fL Immature Gran % (Auto) 0.3 (0.0-0.4) % Neut % (Auto) 58.7 (45-73) % Lymph % (Auto) 28.6 (20-40) % [place] % (Auto) 6.3 (2-11) % Eos % (Auto) 5.5 H (0-4) % Baso % (Auto) 0.6 (0-2) % Lymph # (Auto) 2.7 (1.2-4.9) X10*3/uL [place] # (Auto) 0.6 (0.1-1.2) X10*3/uL Eos # (Auto) 0.5 H (0.0-0.4) X10*3/uL Baso # (Auto) 0.1 (0.0-0.2) X10*3/uL Abs Immat Gran (auto) 0.03 (0.00-0.03) X10*3/uL Absolute Neuts (auto) 5.5 (2.0-8.3) x10*3/uL Absolute Nucleated RBC 0.000 (0.0-0.012) X10*3/uL Nucleated RBC % (auto) 0.0 (0.0-0.2) /100WBC PT 11.3 (10.0-13.1) SEC INR 1.0 (0.9-1.1) APTT 30.8 (26.0-36.4) SEC Sodium 139 (135-145) mmol/L Potassium 4.1 (3.3-5.1) mmol/L Chloride 106 (96-108) mmol/L Carbon Dioxide 24 (22-29) mmol/L Anion Gap 13 (12-20) BUN 15 (9-16) mg/dL Creatinine 0.75 (0.5-1.4) mg/dL Estim Creat Clear Calc 120.0 Estimated GFR > 60 Random Glucose 92 (60-115) mg/dL Calcium 9.7 (8.4-10.2) mg/dL Total Bilirubin 0.3 (0.0-1.0) mg/dL AST 30 (5-31) U/L ALT 31 (0-31) U/L Alkaline Phosphatase 92 (39-117) U/L B-Natriuretic Peptide (<100) pg/mL Total Protein 7.3 (6.5-8.0) g/dL Albumin 4.1 (3.5-5.0) g/dL Beta HCG, Quant < 2 mIU/mL 04/21/22 Range/Units 21:44 WBC (4.8-10.8) X10*3/uL RBC (4.20-5.50) X10*6/uL Hgb (12.0-16.0) g/dl Hct (37.0-47.0) % MCV (80.0-98.0) fL MCH (27.0-33.0) pg MCHC (31.0-35.0) g/dl RDW (11.0-16.0) % Plt Count (160-400) X10*3/uL MPV (9.4-12.3) fL Immature Gran % (Auto) (0.0-0.4) % Neut % (Auto) (45-73) % Lymph % (Auto) (20-40) % [place] % (Auto) (2-11) % Eos % (Auto) (0-4) % Baso % (Auto) (0-2) % Lymph # (Auto) (1.2-4.9) X10*3/uL [place] # (Auto) (0.1-1.2) X10*3/uL Eos # (Auto) (0.0-0.4) X10*3/uL Baso # (Auto) (0.0-0.2) X10*3/uL Abs Immat Gran (auto) (0.00-0.03) X10*3/uL Absolute Neuts (auto) (2.0-8.3) x10*3/uL Absolute Nucleated RBC (0.0-0.012) X10*3/uL Nucleated RBC % (auto) (0.0-0.2) /100WBC PT (10.0-13.1) SEC INR (0.9-1.1) APTT (26.0-36.4) SEC Sodium (135-145) mmol/L Potassium (3.3-5.1) mmol/L Chloride (96-108) mmol/L Carbon Dioxide (22-29) mmol/L Anion Gap (12-20) BUN (9-16) mg/dL Creatinine (0.5-1.4) mg/dL Estim Creat Clear Calc Estimated GFR Random Glucose (60-115) mg/dL Calcium (8.4-10.2) mg/dL Total Bilirubin (0.0-1.0) mg/dL AST (5-31) U/L ALT (0-31) U/L Alkaline Phosphatase (39-117) U/L B-Natriuretic Peptide 16 (<100) pg/mL Total Protein (6.5-8.0) g/dL Albumin (3.5-5.0) g/dL Beta HCG, Quant mIU/mL <FLASH Hernández - Last Filed: 04/21/22 23:05> Critical Care Time Critical Care Time Critical Care Time: No <FLASH Hernández - Last Filed: 04/21/22 23:05> Discharge Plan Discharge Clinical Impression: Lower extremity edema, Ankle pain <Richar Yarbrough MD - Last Filed: 04/21/22 19:56> Patient Disposition: Home, Self-Care <Richar Yarbrough MD - Last Filed: 04/21/22 19:56> Additional Instructions: Take your medications as prescribed. If you were prescribed antibiotics today, it is important that you take your medication to their entirety, do not skip any doses, do not finish them early. Follow-up with your primary care provider this week. Return to the emergency department with new or worsening symptoms. Such as fevers, chills, chest pain, shortness of breath, nausea, vomiting, dizziness, headache, vision changes, lethargy, worsening pain or swelling In case of emergency call 911 US/US venous duplex LE LT IMPRESSION: No DVT demonstrated in the left lower extremity. If the patient's symptoms persist, followup ultrasound in 5 days 7 days might be of value to exclude proximal propagation from a non-visualized calf vein. ? ?XR/XR ankle LT min 3V IMPRESSION: Moderate bimalleolar and lower extremity soft tissue edema. No visible acute fracture or dislocation seen. ? <Richar Yarbrough MD - Last Filed: 04/21/22 19:56> Prescriptions: No Action amlodipine 5 mg tablet 10 mg PO DAILY Qty: 180 0RF Rx Instructions: Please call and schedule cardiology follow-up acetaminophen 500 mg tablet 1,000 mg PO Q6H Qty: 60 1RF docusate sodium [Colace] 100 mg capsule 100 mg PO BID Qty: 30 1RF oxycodone 5 mg tablet 5 mg PO Q4H PRN (Reason: pain) 7 Days Qty: 20 0RF hydrochlorothiazide 25 mg tablet 25 mg PO QAM Qvar RediHaler 40 mcg/actuation HFA aerosol breath activated 1 inh inhalation BID <Richar Yarbrough MD - Last Filed: 04/21/22 19:56> Referrals: Alannah Bernard, UND[employer]WR[employer]ICIT[employer] DIRECTOR [Primary Care Provider] - 2 days <Richar Yarbrough MD - Last Filed: 04/21/22 19:56> Stand Alone Forms: Work/School Release <Richar Yarbrough MD - Last Filed: 04/21/22 19:56> Interventions: ED Discharge Assessment Last Done: 04/21/22 23:00 <Richar Yarbrough MD - Last Filed: 04/21/22 19:56> Discharge Date/Time: 04/21/22 23:01 <Richar Yarbrough MD - Last Filed: 04/21/22 19:56>
[2022-04-21 21:58] LABS: Prothrombin Time 11.3 SEC (10.0-13.1)
[2022-04-21 22:00] LABS: Partial Thromboplastin Time 30.8 SEC (26.0-36.4)
[2022-04-21 22:14] LABS: B Type Natriuretic Peptide 16 pg/mL (<100)
[2022-04-21 22:21] LABS: Basophils Absolute Auto 0.1 X10*3/uL (0.0-0.2); Basophils Percent Auto 0.6 % (0-2); Eosinophils Absolute Auto 0.5 X10*3/uL (0.0-0.4); Eosinophils Percent Auto 5.5 % (0-4); Hematocrit 37.5 % (37.0-47.0); Hemoglobin 12.7 g/dl (12.0-16.0); Imm Gran Abs Auto 0.03 X10*3/uL (0.00-0.03); Imm Gran Pct Auto 0.3 % (0.0-0.4); Lymphocytes Absolute Auto 2.7 X10*3/uL (1.2-4.9); Lymphocytes Percent Auto 28.6 % (20-40); MANUAL DIFF FLAG NO; Mean Corpuscular HGB Conc 33.9 g/dl (31.0-35.0); Mean Corpuscular Hemoglobin 27.2 pg (27.0-33.0); Mean Corpuscular Volume 80.3 fL (80.0-98.0); Mean Platelet Volume 9.2 fL (9.4-12.3); Monocytes Absolute Auto 0.6 X10*3/uL (0.1-1.2); Monocytes Percent Auto 6.3 % (2-11); Neutrophils Absolute Auto 5.5 x10*3/uL (2.0-8.3); Neutrophils Percent Auto 58.7 % (45-73); Platelet Count 277 X10*3/uL (160-400); Red Blood Count 4.67 X10*6/uL (4.20-5.50); Red Cell Distribution Width 13.1 % (11.0-16.0); White Blood Count 9.4 X10*3/uL (4.8-10.8)
[2022-04-21 22:31] LABS: Alanine Aminotransferase 31 U/L (0-31); Albumin Level 4.1 g/dL (3.5-5.0); Alkaline Phosphatase 92 U/L (39-117); Anion Gap 13 (12-20); Aspartate Amino Transferase 30 U/L (5-31); Bilirubin Total 0.3 mg/dL (0.0-1.0); Blood Urea Nitrogen 15 mg/dL (9-16); Calcium 9.7 mg/dL (8.4-10.2); Carbon Dioxide 24 mmol/L (22-29); Chloride 106 mmol/L (96-108); Estimated Glomerular Filt Rate > 60; Glucose Random 92 mg/dL (60-115); HCG Quantitative < 2 mIU/mL; Potassium 4.1 mmol/L (3.3-5.1); Sodium 139 mmol/L (135-145); Total Protein 7.3 g/dL (6.5-8.0)
== END 2022-04-21 23:01 | disposition home or self-care (01) ==
PROVIDERS: Emergency Medicine Emergency Medical Services; Physician Assistant; Emergency Provider Emergency Medicine; PCP Nurse Practitioner Primary Care
DX: R60.0 Localized edema (principal); M25.572 Pain in left ankle and joints of left foot; I10 Essential (primary) hypertension
CPT/HCPCS: 36415; 73610; 80053; 83880; 84702; 85025; 85610; 85730; 93971; 99283

== ENCOUNTER 2022-05-31 09:59 | Outpatient (REF) | payer OTHER, SELFPAY ==
--- NOTE | 2022-05-31 | PFT_ITS ---
FLOWS: FEV1 73% of predicted at 2.09 L. FVC 71% of predicted at 2.41 L. FEV1 to FVC ratio of 0.87. No bronchodilator response except in small to medial airways. LUNG VOLUMES: Total lung capacity 75% of predicted at 3.35 L. Residual volume 93% of predicted at 1.01 L. Slow vital capacity 69% of predicted at 2.34 L. Expiratory reserve volume 16% of predicted at 0.23 L. Diffusion capacity is normal. IMPRESSION: Moderate restrictive ventilatory defect with no bronchodilator response except in small to medial airways. Decreased expiratory reserve volume suggests extrathoracic restriction, likely secondary to abdominal obesity. Ned Joya MD AP/MODL / [id number]
== END 2022-05-31 10:00 | disposition home or self-care (01) ==
LOC: HO.RESP 09:59
PROVIDERS: PCP Nurse Practitioner Primary Care; Visit Provider Nurse Practitioner Primary Care
DX: J45.30 Mild persistent asthma, uncomplicated (principal)
CPT/HCPCS: 94060; 94727; 94729

== ENCOUNTER 2022-07-06 21:18 | Emergency (ER) | payer OTHER, SELFPAY ==
--- NOTE | ~2022-07-06 | CT_ITS ---
EXAMINATION: CT ABDOMEN AND PELVIS WITHOUT CONTRAST CLINICAL INFORMATION: Inability to void COMPARISON: None TECHNIQUE: Multidetector volumetric imaging was performed from the superior aspect of the liver through the pubic symphysis. Sagittal and coronal reformatted images were obtained on the technologist's workstation. This CT examination was performed using dose optimization techniques as appropriate, variously including the following: *Automated exposure control *Adjustment of mA and/or kV according to patient size (this includes techniques or standardized protocols for targeted exams where dose is matched to indication/reason for exam; i.e. extremities or head) *Use of iterative reconstruction technique DLP: 889 mGy-cm FINDINGS: LUNG BASES: The visualized lung bases are unremarkable. LIVER, GALLBLADDER, AND BILIARY TREE: The liver is normal in size, shape, and attenuation. No focal hepatic lesion or biliary ductal dilatation is present. The gallbladder is unremarkable with no evidence of radiopaque gallstones, gallbladder wall thickening, or obvious pericholecystic inflammatory changes. PANCREAS: Unremarkable. SPLEEN: A giant splenic cyst is present measuring 9.9 x 8.5 x 10.5 cm. ADRENAL GLANDS: Unremarkable. KIDNEYS AND URETERS: The right kidney appears normal. The left kidney is ptotic kidney and pelvis but otherwise unremarkable. No renal masses, renal calculi or hydronephrosis is seen. The ureters are not dilated. BLADDER: Minimally filled with a symmetrically thickened wall GASTROINTESTINAL TRACT: The small and large bowel are unremarkable. The appendix is unremarkable. ABDOMINAL WALL: No significant hernia is appreciated. LYMPH NODES: No retroperitoneal lymphadenopathy. VASCULAR: Unremarkable. PELVIC VISCERA: The previously seen ovarian cysts and inflammatory changes in the pelvis are no longer present possibly due to resolved pelvic inflammatory disease. At this time the uterus which is tipped to the right appears unremarkable and an abnormal adnexal mass or free intraperitoneal fluid is not seen. OSSEOUS STRUCTURES: [place] rods are partially visualized with pedicular screws from T11 through L2. CT/CT abdomen pelvis wo IV con IMPRESSION: 1. A cause for the patient's inability to void is not seen. The bladder is only minimally filled with a symmetrically thickened wall. 2. Incidental note made of a ptotic left kidney. 3. Resolution of previously seen pelvic inflammatory changes and ovarian cysts. 4. Other incidental findings as described above including a large splenic cyst without significant change. Fleischner guidelines were followed.
--- NOTE | ~2022-07-06 | US_ITS ---
EXAMINATION: US VENOUS ULTRASOUND WITH DOPPLER LOWER EXTREMITY, LEFT CLINICAL INFORMATION: Left leg edema COMPARISON: Left leg DVT study 04/21/2022 TECHNIQUE: Ultrasound of the deep veins is performed from the hip to the calf with compression sonography and color and pulse Doppler assessment. Spectral analysis with color-flow imaging is performed. FINDINGS: There is normal venous compression and respiratory variation and augmented flow. The visualized common femoral vein, superficial femoral vein, profunda femoral vein, popliteal vein, and the trifurcation region shows no evidence of deep venous thrombosis. There is no significant popliteal fossa cyst. The contralateral right common femoral vein appears normal. If the patient's symptoms persist, followup ultrasound in 5 days 7 days might be of value to exclude proximal propagation from a non-visualized calf vein. US/US venous duplex LE IMPRESSION: No DVT demonstrated in the left lower extremity.
[2022-07-06 21:20] VITALS: BP 159/85; PULSE 96; RESP 18; TEMP 36.6; O2SAT 99; BMI 47.2
[2022-07-06 22:04] LABS: MANUAL DIFF FLAG NO
[2022-07-06 22:05] LABS: Basophils Absolute Auto 0.1 X10*3/uL (0.0-0.2); Basophils Percent Auto 0.6 % (0-2); Eosinophils Absolute Auto 0.6 X10*3/uL (0.0-0.4); Eosinophils Percent Auto 6.5 % (0-4); Hemoglobin 12.7 g/dl (12.0-16.0); Imm Gran Abs Auto 0.03 X10*3/uL (0.00-0.03); Imm Gran Pct Auto 0.3 % (0.0-0.4); Lymphocytes Percent Auto 32.3 % (20-40); Mean Corpuscular HGB Conc 33.4 g/dl (31.0-35.0); Mean Corpuscular Hemoglobin 26.4 pg (27.0-33.0); Mean Platelet Volume 9.1 fL (9.4-12.3); Monocytes Absolute Auto 0.4 X10*3/uL (0.1-1.2); Monocytes Percent Auto 4.7 % (2-11); Neutrophils Absolute Auto 5.2 x10*3/uL (2.0-8.3); Neutrophils Percent Auto 55.6 % (45-73); Platelet Count 310 X10*3/uL (160-400); Red Blood Count 4.81 X10*6/uL (4.20-5.50); Red Cell Distribution Width 12.7 % (11.0-16.0); White Blood Count 9.4 X10*3/uL (4.8-10.8)
--- NOTE | 2022-07-06 22:11 | ED_ITS ---
HPI - General Adult General Chief complaint: General Medical Stated complaint: L foot swelling/Unable to void Time Seen by Provider: 07/06/22 22:02 Source: patient Mode of arrival: ambulatory Limitations: no limitations History of Present Illness HPI narrative: This is a 26-year-old female history of NSTEMI, hypertension, mitral regurg presenting to the emergency department for evaluation of left lower extremity swelling times a long time worsening and inability to void x2 days. Patient tells me that this is the 1st time that she is unable to void, she tells me she is also taking hydrochlorothiazide for her blood pressure and despite this she still has not been able to void. He reports pressure to her abdomen. She tells me that her left lower extremity swelling has been there for a while and she also reports that she has a cut to the bottom of her left foot that has also been there for a long time. Concerned that it is infected she tells me. Patient denies fevers, chills, chest pain, shortness of breath, nausea, vomiting, anorexia, headache, vision changes, dizziness and weakness. Related Data Home Medications Medication Instructions Recorded Confirmed hydrochlorothiazide 25 mg tablet 25 mg PO QAM 06/30/20 02/03/21 beclomethasone dipropionate 40 1 inh inhalation BID 02/03/21 02/03/21 mcg/actuation HFA breath activated aerosol (Qvar RediHaler) Previous Rx's Medication Instructions Recorded acetaminophen 500 mg tablet 1,000 mg PO Q6H #60 tabs 01/30/21 docusate sodium 100 mg capsule 100 mg PO BID #30 caps 01/30/21 (Colace) oxycodone 5 mg tablet 5 mg PO Q4H PRN pain 7 days #20 01/30/21 tabs amlodipine 5 mg tablet 10 mg PO DAILY #180 tabs 07/30/21 Allergies Allergy/AdvReac Type Severity Reaction Status Date / Time No Known Allergies Allergy Verified 04/21/22 19:48 Review of Systems Review of Systems: Constitutional : No Weight loss, No Fever, No Chills, No Fatigue, No Malaise ENT/Mouth : No sore throat, No Rhinorrhea Eyes: No Eye Pain, No Swelling, No Redness Cardiovascular : No Chest Pain, No SOB, No Dyspnea on Exertion, No Orthopnea, No Edema, No Palpitations Respiratory : No Cough, No Sputum, No Wheezing Gastrointestinal : No Nausea, No Vomiting, No Diarrhea, No Constipation, + abdominal Pain, No Hematochezia, No Melena Genitourinary : No Dysuria, No Urinary Frequency, No Hematuria, + inability to void Musculoskeletal : No joint pain, No Myalgias, No Joint Swelling, + LLE swelling Skin : No Skin Lesions, No rash Neuro : No Weakness, No Numbness, No Dizziness, No Headache Psych : No Anxiety/Panic, No Depression All other systems reviewed and are negative Yes all other systems are reviewed and are negative [facility] Past Medical History Attestation statement: The following information was validated with the patient. Source: old records reviewed and nursing notes reviewed Medical History Essential hypertension Non-rheumatic mitral regurgitation Surgical History History of brain shunt History of cardiac catheterization History of foot surgery History of laparoscopy History of lumbar fusion (~2009) S/P laparoscopic cholecystectomy Status post catheter-placed plug or coil occlusion of PDA Family History Family History Father Heart attack Stroke Heart disease Mother History of cholecystectomy Brother No problems noted. Brother No problems noted. Sister No problems noted. Maternal Grandmother Breast cancer Social History Social History Household Members: Family Housing: Apartment Do you presently have visiting nurse or other home services: No Alcohol intake: current Alcohol intake frequency: holidays/special occasions only Patient Tobacco Use Status: Never used Tobacco Smoked in Last 30 Days: Yes Use of substances other than those prescribed or required for medical reasons: No Advance Directives: No Advance Directives Information Provided: Yes Patient : No service: No Current occupational status: unemployed Physical Exam ED Vital Signs: Vital Signs - 24 hr 07/06/22 21:20 07/06/22 22:55 07/07/22 01:06 Temperature 97.9 F 98.1 F 98.6 F Pulse Rate 96 75 73 Respiratory Rate 18 18 17 Blood Pressure 159/85 H 150/71 H 143/65 H Pulse Oximetry 99 95 99 Oxygen Delivery Method Room Air Room Air Room Air BMI result Body Mass Index 47.2 vss Appearance: Alert.? Oriented X3.? No acute distress.? Head: Normocephalic, atraumatic, no step-offs or deformities Eyes: Pupils equal, round and reactive to light.? Neck: Normal inspection.? Neck supple.? CVS: Normal heart rate and rhythm.? Pulses normal.? Respiratory: No respiratory distress.? Breath sounds normal.? Abdomen: Soft and nontender.? Skin: Skin warm and dry.? Normal skin color.? Normal skin turgor.? Extremities: 2+ pitting edema to LLE normal RLE.? No calf ttp. 5/5 strength to bilateral upper and lower extremities + callus to bottom of left foot no overlying erythema or warmth. 2+ dorsalis pedis, posterior tibialis and anterior tibialis pulses equal bilateral. No footdrop. Normal sensation to neema ateral lower extremities. Neuro: Oriented X 3.? No motor deficit.? No sensory deficit. CN 2-12 intact . Ambulating with steady gait normal coordination Course Reevaluation(s) Reevaluation #1: CBC appears to be around patient's baseline. Chemistry pending. CT of the abdomen and pelvis, urine pending at this time. Time: 22:24 Reevaluation #2: Bladder scan showing 23 cc in bladder. Will give fluids to see if patient will void Time: 22:27 Reevaluation #3: Chemistry with no acute electrolyte abnormalities requiring intervention. HCG negative. Left lower extremity venous duplex no DVT in the left lower extremity. Pending urine and CT of the abdomen and pelvis. Time: 23:25 Additional Reevaluation(s): CT of the abdomen pelvis unable to identify cause for patient's inability to void. The bladder is only minimally filled with symmetrical wall thickening. No signs of obstructing uropathy. Patient was able to urinate and give us a urine sample. UA clean. Eating and drinking well. States feeling better. Patient tells me she has a operations management professionals Dr. Brewer who she is scheduled to see next week. Patient does not have a urologist. Patient was able to pee after drinking water. At this time patient will be discharged home with Urology follow-up. Patient's left lower extremity swelling has been there for a long time advised her to follow-up with her PCP. Also advised her to minimize her salt intake. Medications Administered Discontinued Medications Generic Name Dose Route Start Last Admin Trade Name Miguel PRN Reason Stop Dose Admin Sodium Chloride 1,000 mls @ 999 mls/hr 07/06/22 22:30 07/07/22 00:00 Ns IV 07/06/22 23:30 999 mls/hr .Q1H1M JUAN Administration Medical Decision Making Medical Decision Making [facility] Narrative: 1021 This is a 26-year-old female presenting for evaluation of inability to void x2 days, abdominal pressure in the suprapubic region. And left lower extremity swelling for a long time worsening. Physical exam significant for 2+ pitting edema to LLE normal RLE .? No calf ttp. 5/5 strength to bilateral upper and lower extremities History and physical examination concerning for possible DVT or possible fluid retention. Unlikely CHF. I do not suspect arterial occlusion or threatened limb. Inability to void could be secondary to urinary tract infection or obstructing uropathy will rule out. Unlikley pylonephritis. Plan labs, urine, CT of the abdomen pelvis. Differential Diagnosis Differential Diagnoses: The differential diagnosis associated with the presentation includes History and physical examination concerning for possible DVT or possible fluid retention. Unlikely CHF. I do not suspect arterial occlusion or threatened limb. Inability to void could be secondary to urinary tract infection or obstructing uropathy will rule out. Admission/Observation Consideration of admission/observation: Escalation of care including admission/observation considered Not indicated Lab Data [facility] Lab Attestation statement: I reviewed the patient's lab results. 07/06/22 22:00 07/06/22 22:00 Labs: Lab Results 07/06/22 07/06/22 07/06/22 Range/Units 22:00 22:00 22:00 WBC 9.4 (4.8-10.8) X10*3/uL RBC 4.81 (4.20-5.50) X10*6/uL Hgb 12.7 (12.0-16.0) g/dl Hct 38.0 (37.0-47.0) % MCV 79.0 L (80.0-98.0) fL MCH 26.4 L (27.0-33.0) pg MCHC 33.4 (31.0-35.0) g/dl RDW 12.7 (11.0-16.0) % Plt Count 310 (160-400) X10*3/uL MPV 9.1 L (9.4-12.3) fL Immature Gran % (Auto) 0.3 (0.0-0.4) % Neut % (Auto) 55.6 (45-73) % Lymph % (Auto) 32.3 (20-40) % [place] % (Auto) 4.7 (2-11) % Eos % (Auto) 6.5 H (0-4) % Baso % (Auto) 0.6 (0-2) % Lymph # (Auto) 3.0 (1.2-4.9) X10*3/uL [place] # (Auto) 0.4 (0.1-1.2) X10*3/uL Eos # (Auto) 0.6 H (0.0-0.4) X10*3/uL Baso # (Auto) 0.1 (0.0-0.2) X10*3/uL Abs Immat Gran (auto) 0.03 (0.00-0.03) X10*3/uL Absolute Neuts (auto) 5.2 (2.0-8.3) x10*3/uL Absolute Nucleated RBC 0.000 (0.0-0.012) X10*3/uL Nucleated RBC % (auto) 0.0 (0.0-0.2) /100WBC Sodium 141 (135-145) mmol/L Potassium 3.4 (3.3-5.1) mmol/L Chloride 107 (96-108) mmol/L Carbon Dioxide 26 (22-29) mmol/L Anion Gap 11 L (12-20) BUN 15 (9-16) mg/dL Creatinine 0.89 (0.5-1.4) mg/dL Estim Creat Clear Calc 108.6 Estimated GFR > 60 Random Glucose 122 H (60-115) mg/dL Calcium 9.3 (8.4-10.2) mg/dL Total Bilirubin 0.3 (0.0-1.0) mg/dL Direct Bilirubin < 0.2 (0.0-0.5) mg/dL AST 25 (5-31) U/L ALT 33 H (0-31) U/L Alkaline Phosphatase 98 (39-117) U/L B-Natriuretic Peptide (<100) pg/mL Total Protein 7.1 (6.5-8.0) g/dL Albumin 4.0 (3.5-5.0) g/dL Lipase 16 (8-78) U/L Beta HCG, Quant < 2 mIU/mL Urine Color Urine Appearance Urine pH (5.0-9.0) Ur Specific [place] (1.005-1.025) Urine Protein (Neg-Trace) mg/dL Urine Glucose (UA) (Negative) mg/dL Urine Ketones (Negative) mg/dL Urine Blood (Negative) Urine Nitrite (Negative) Ur Leukocyte Esterase (Negative) Urine Test (NEGATIVE) 07/06/22 07/07/22 07/07/22 Range/Units 22:00 00:28 00:28 WBC (4.8-10.8) X10*3/uL RBC (4.20-5.50) X10*6/uL Hgb (12.0-16.0) g/dl Hct (37.0-47.0) % MCV (80.0-98.0) fL MCH (27.0-33.0) pg MCHC (31.0-35.0) g/dl RDW (11.0-16.0) % Plt Count (160-400) X10*3/uL MPV (9.4-12.3) fL Immature Gran % (Auto) (0.0-0.4) % Neut % (Auto) (45-73) % Lymph % (Auto) (20-40) % [place] % (Auto) (2-11) % Eos % (Auto) (0-4) % Baso % (Auto) (0-2) % Lymph # (Auto) (1.2-4.9) X10*3/uL [place] # (Auto) (0.1-1.2) X10*3/uL Eos # (Auto) (0.0-0.4) X10*3/uL Baso # (Auto) (0.0-0.2) X10*3/uL Abs Immat Gran (auto) (0.00-0.03) X10*3/uL Absolute Neuts (auto) (2.0-8.3) x10*3/uL Absolute Nucleated RBC (0.0-0.012) X10*3/uL Nucleated RBC % (auto) (0.0-0.2) /100WBC Sodium (135-145) mmol/L Potassium (3.3-5.1) mmol/L Chloride (96-108) mmol/L Carbon Dioxide (22-29) mmol/L Anion Gap (12-20) BUN (9-16) mg/dL Creatinine (0.5-1.4) mg/dL Estim Creat Clear Calc Estimated GFR Random Glucose (60-115) mg/dL Calcium (8.4-10.2) mg/dL Total Bilirubin (0.0-1.0) mg/dL Direct Bilirubin (0.0-0.5) mg/dL AST (5-31) U/L ALT (0-31) U/L Alkaline Phosphatase (39-117) U/L B-Natriuretic Peptide < 10 (<100) pg/mL Total Protein (6.5-8.0) g/dL Albumin (3.5-5.0) g/dL Lipase (8-78) U/L Beta HCG, Quant mIU/mL Urine Color Yellow Urine Appearance Cloudy Urine pH 6.5 (5.0-9.0) Ur Specific Oden >= 1.030 H (1.005-1.025) Urine Protein Trace (Neg-Trace) mg/dL Urine Glucose (UA) Negative (Negative) mg/dL Urine Ketones Trace (Negative) mg/dL Urine Blood Negative (Negative) Urine Nitrite Negative (Negative) Ur Leukocyte Esterase Negative (Negative) Urine Test NEGATIVE (NEGATIVE) Independent Interpretation I performed an independent interpretation of an: Ultrasound (US/US venous duplex LE LT IMPRESSION: No DVT demonstrated in the left lower extremity.) and CT Scan (Unremarkable) Radiology Impression Discussion of test interpretation with radiology: I have reviewed the radiologist's reading. Core Measures AMI core measures followed: Yes Measure exclusions: not indicated Critical Care Time Critical Care Time Critical Care Time: No Discharge Plan Discharge Clinical Impression: Left leg swelling, Difficulty voiding Patient Disposition: Home, Self-Care Instructions: Urinary Urgency and Frequency (DC) Additional Instructions: Take your medications as prescribed. If you were prescribed antibiotics today, it is important that you take your medication to their entirety, do not skip any doses, do not finish them early. Follow-up with your primary care provider this week. Please follow-up with urology due to difficulty voiding tomorrow. Return to the emergency department with new or worsening symptoms. Such as fevers, chills, chest pain, shortness of breath, nausea, vomiting, dizziness, headache, vision changes, lethargy In case of emergency call [address]/CT abdomen pelvis wo IV con IMPRESSION: 1.? A cause for the patient's inability to void is not seen. The bladder is only minimally filled with a symmetrically thickened wall. 2.? Incidental note made of a ptotic left kidney. 3.? Resolution of previously seen pelvic inflammatory changes and ovarian cysts. 4.? Other incidental findings as described above including a large splenic cyst without significant change. ? Fleischner guidelines were followed. ?US/US venous duplex LE LT IMPRESSION: No DVT demonstrated in the left lower extremity. Prescriptions: No Action amlodipine 5 mg tablet 10 mg PO DAILY Qty: 180 0RF Rx Instructions: Please call and schedule cardiology follow-up acetaminophen 500 mg tablet 1,000 mg PO Q6H Qty: 60 1RF docusate sodium [Colace] 100 mg capsule 100 mg PO BID Qty: 30 1RF oxycodone 5 mg tablet 5 mg PO Q4H PRN (Reason: pain) 7 Days Qty: 20 0RF hydrochlorothiazide 25 mg tablet 25 mg PO QAM Qvar RediHaler 40 mcg/actuation HFA aerosol breath activated 1 inh inhalation BID Referrals: [facility] [place] [facility] [Provider Group] - 1 day Stand Alone Forms: Work/School Release
[2022-07-06 22:38] LABS: Alanine Aminotransferase 33 U/L (0-31); Alkaline Phosphatase 98 U/L (39-117); Anion Gap 11 (12-20); Aspartate Amino Transferase 25 U/L (5-31); Bilirubin Direct < 0.2 mg/dL (0.0-0.5); Bilirubin Total 0.3 mg/dL (0.0-1.0); Blood Urea Nitrogen 15 mg/dL (9-16); Calcium 9.3 mg/dL (8.4-10.2); Carbon Dioxide 26 mmol/L (22-29); Chloride 107 mmol/L (96-108); Creatinine Clr Calc Pharmacy 108.6; Estimated Glomerular Filt Rate > 60; Glucose Random 122 mg/dL (60-115); Lipase 16 U/L (8-78); Potassium 3.4 mmol/L (3.3-5.1); Sodium 141 mmol/L (135-145); Total Protein 7.1 g/dL (6.5-8.0)
[2022-07-06 22:43] LABS: HCG Quantitative < 2 mIU/mL
[2022-07-06 22:55] VITALS: BP 150/71; PULSE 75; RESP 18; TEMP 36.7; O2SAT 95
[2022-07-06 23:30] LABS: B Type Natriuretic Peptide < 10 pg/mL (<100)
[2022-07-07] MEDS: 0.9 % Sodium Chloride 1,000 ML 999 ML IV
[2022-07-07 00:36] LABS: Appearance Urine Cloudy; Color Urine Yellow; Glucose Urine UA Negative (Negative); Leukocyte Esterase Urine Negative (Negative); Nitrite Urine Negative (Negative); PH 6.5 (5.0-9.0); Specific Gravity - Urine >= 1.030 (1.005-1.025); UPreg QC Valid YES; Urine Blood Negative (Negative); Urine Ketones Trace mg/dL (Negative); Urine Pregnancy NEGATIVE (NEGATIVE); Urine Protein Trace mg/dL (Neg-Trace)
[2022-07-07 01:06] VITALS: BP 143/65; PULSE 73; RESP 17; TEMP 37; O2SAT 99
--- NOTE | 2022-07-07 01:21 | PC.NURSE ---
Pt A&Ox4, denies any pain, reports L ankle swelling with small laceration to under L foot, also reports inability to void x 2 days. L ankle swelling noted and dry, cracked skin noted to L foot. Pt given PO fluids, able to ambulate independently with steady gait to BR, urine sample collected and sent to lab. IV established, IV noted to be leaking and D/C, provider aware.
== END 2022-07-07 01:34 | disposition home or self-care (01) ==
PROVIDERS: Physician Assistant; Emergency Provider Emergency Medicine; PCP Nurse Practitioner Primary Care
DX: R60.0 Localized edema (principal); R33.9 Retention of urine, unspecified; R06.02 Shortness of breath; R10.2 Pelvic and perineal pain; Z79.899 Other long term (current) drug therapy
CPT/HCPCS: 36415; 51798; 74176; 80053; 81003; 81025; 82248; 83690; 83880; 84702; 85025; 93971; 99284; 99285

== ENCOUNTER → 2022-08-25 14:08 | Outpatient (BNVA) | payer OTHER, SELFPAY | PROVIDERS: PCP Nurse Practitioner Primary Care; Referring Provider Nurse Practitioner Primary Care; Visit Provider Internal Medicine | DX: I34.0 Nonrheumatic mitral (valve) insufficiency (principal); I21.4 Non-ST elevation (NSTEMI) myocardial infarction; I10 Essential (primary) hypertension; Z87.74 Personal history of (corrected) congenital malformations of heart and circulatory system; Z91.199 Patient's noncompliance with other medical treatment and regimen due to unspecified reason | CPT/HCPCS: 99212 ==

== ENCOUNTER 2022-09-03 17:43 | Emergency (ER) | payer OTHER, SELFPAY ==
[2022-09-03 18:20] VITALS: BP 171/95; PULSE 87; RESP 16; TEMP 36.9; O2SAT 96; BMI 47.7
--- NOTE | 2022-09-03 18:21 | ED_ITS ---
HPI - General Adult General Chief complaint: General Medical Stated complaint: weak, congested, headache Time Seen by Provider: 09/03/22 18:50 Source: patient Mode of arrival: ambulatory Limitations: no limitations History of Present Illness HPI narrative: 26 yo female presents to the ER for evaluation of generalized headache, nasal and sinus congestion, and generalized weakness that started last night. She had a fever last night of 101. No known sick contacts but she works with the elderly. +some SOB, occasional cough. No chest pain, N/V/D or abdominal pain. No urinary symptoms. MD complaint: weakness and congestion Onset (ago): day(s) (1) Location: head and face Radiation: non-radiation Severity: moderate Quality: aching Pain Consistency: constant Relieving factors: none Exacerbating factors: movement Associated symptoms: cough, fever/chills, headaches, loss of appetite, malaise and weakness Treatments prior to arrival: none Related Data Home Medications Medication Instructions Recorded Confirmed hydrochlorothiazide 25 mg tablet 25 mg PO QAM 06/30/20 08/25/22 beclomethasone dipropionate 40 1 inh inhalation BID 02/03/21 08/25/22 mcg/actuation HFA breath activated aerosol (Qvar RediHaler) Previous Rx's Medication Instructions Recorded acetaminophen 500 mg tablet 1,000 mg PO Q6H #60 tabs 01/30/21 docusate sodium 100 mg capsule 100 mg PO BID #30 caps 01/30/21 (Colace) amlodipine 5 mg tablet 10 mg PO DAILY #180 tabs 07/30/21 fluticasone propionate 50 1 spray intranasal BID #16 grams 09/03/22 mcg/actuation nasal spray,suspension (24 Hour Allergy Relief) ibuprofen 600 mg tablet 600 mg PO Q8H PRN fever or pain 09/03/22 #14 tabs Allergies Allergy/AdvReac Type Severity Reaction Status Date / Time No Known Allergies Allergy Verified 08/25/22 14:21 Review of Systems Review of Systems: Yes all other systems are reviewed and are negative [facility] Past Medical History Medical History Essential hypertension Non-rheumatic mitral regurgitation Surgical History History of brain shunt History of cardiac catheterization History of foot surgery History of laparoscopy History of lumbar fusion (~2009) S/P laparoscopic cholecystectomy Status post catheter-placed plug or coil occlusion of PDA Family History Family History Father Heart attack Stroke Heart disease Mother History of cholecystectomy Brother No problems noted. Brother No problems noted. Sister No problems noted. Maternal Grandmother Breast cancer Social History Social History Household Members: Family Housing: Apartment Do you presently have visiting nurse or other home services: No Alcohol intake: current Alcohol intake frequency: holidays/special occasions only Patient Tobacco Use Status: Never used Tobacco Advance Directives: No Advance Directives Information Provided: No service: No Current occupational status: unemployed Physical Exam ED Vital Signs: Vital Signs - 24 hr 09/03/22 18:20 Temperature 98.5 F Pulse Rate 87 Respiratory Rate 16 Blood Pressure 171/95 H Pulse Oximetry 96 Oxygen Delivery Method Room Air BMI result Body Mass Index 47.7 Appearance: Alert. Oriented X3. No acute distress. Head: normocephalic, atraumatic. Eyes: Pupils equal, round and reactive to light. ENT: Pharynx normal. No tonsillar swelling or exudate. Clear nasal congestion bilaterally. Neck: Normal inspection. Neck supple. CVS: Normal heart rate and rhythm. Pulses normal. Respiratory: No respiratory distress. Breath sounds normal. Skin: Skin warm and dry. Normal skin color. Normal skin turgor. No rashes. Extremities: No lower extremity edema. No joint swelling. Neuro/psych: Oriented X 3. Grossly normal, nonfocal. CN II-XII intact. Normal speech and cognition. steady gait Medications Administered Discontinued Medications Generic Name Dose Route Start Last Admin Trade Name Freq PRN Reason Stop Dose Admin Ibuprofen 600 mg 09/03/22 18:23 09/03/22 18:31 Ibuprofen 600 Mg Tablet PO 09/03/22 18:24 600 mg ONCE ONE Administration Medical Decision Making Medical Decision Making MDM Narrative: 26 yo female presenting to the ER for evaluation of headaches, weakness, congestion since yesterday. VS show hypertension and she is c/o a pounding headache associated with her congestion. will give motrin. neuro intact. Patient otherwise stable. symptoms most likely due to viral etiology. she is negative for covid and flu. we discussed symptomatic care. will prescribed flonase for allergies/congestion. stable for d/c home. Differential Diagnosis Differential Diagnoses: The differential diagnosis associated with the presentation includes strep, covid, flu, rsv, other viral syndrome, seasonal allergies, sinus in fection, bronchitis, pneumonia Lab Data [facility] Lab Attestation statement: I reviewed the patient's lab results. Labs: Lab Results 09/03/22 09/03/22 Range/Units 18:32 18:32 COVID-19 ([facility]) Negative (Negative) COVID-19 Clin Com See Note Influenza Type A ([facility]) Negative (Negative) Influenza Type B ([facility]) Negative (Negative) Influenza A & B Note See Note External Record Review External record reviewed: Outpatient record and Prior outpatient labs Prescription Management I considered prescription management with: Antibiotic no evidence of acute sinusitis Chronic Conditions Patient?s care impacted by: Hypertension Critical Care Time Critical Care Time Critical Care Time: No Discharge Plan Discharge Clinical Impression: Acute viral syndrome Patient Disposition: Home, Self-Care Instructions: Viral Syndrome (ED) Additional Instructions: You tested negative for COVID and Flu. Your symptoms are most consistent with a viral illness. Treatment is rest and supportive care. Drink plenty of fluids. Recommend continuing your Zyrtec for seasonal allergies as they may be contributing as well. Take the prescribed nasal spray to help with congestion Take the prescribed motrin for headaches Recommend over the counter cold/flu medications as needed for your other symptoms If you develop new or worsening symptoms call 911 or come back to the ER for further evaluation. Prescriptions: New fluticasone propionate [24 Hour Allergy Relief] 50 mcg/actuation spray,suspension 1 spray intranasal BID Qty: 16 0RF Rx Instructions: administer into each nostril ibuprofen 600 mg tablet 600 mg PO Q8H PRN (Reason: fever or pain) Qty: 14 0RF No Action amlodipine 5 mg tablet 10 mg PO DAILY Qty: 180 0RF Rx Instructions: Please call and schedule cardiology follow-up acetaminophen 500 mg tablet 1,000 mg PO Q6H Qty: 60 1RF docusate sodium [Colace] 100 mg capsule 100 mg PO BID Qty: 30 1RF hydrochlorothiazide 25 mg tablet 25 mg PO QAM Qvar RediHaler 40 mcg/actuation HFA aerosol breath activated 1 inh inhalation BID Referrals: Alannah Bernard EVAPORATOR REPAIRER [Primary Care Provider] - Stand Alone Forms: Work/School Release
[2022-09-03] MEDS: Ibuprofen 600 MG TABLET PO (18:31)
[2022-09-03 19:05] LABS: COVID-19 Test Negative (Negative); IDNOW Serial# 55D5AD1C; IDNOW Serial# 6674DD1D; Influenza A Negative (Negative); Influenza B2 Negative (Negative)
--- NOTE | 2022-09-03 19:57 | PC.NURSE ---
Took over care at 7:10pm, reviewed discharge instructions with pt, pt verbalized understanding, no sign of distress upon discharge.
== END 2022-09-03 20:00 | disposition home or self-care (01) ==
PROVIDERS: Physician Assistant; Emergency Provider Emergency Medicine; PCP Nurse Practitioner Primary Care
DX: B34.9 Viral infection, unspecified (principal); Z20.822 Contact with and (suspected) exposure to COVID-19; Z20.828 Contact with and (suspected) exposure to other viral communicable diseases; Z79.899 Other long term (current) drug therapy
CPT/HCPCS: 87502; 87635; 99283

== ENCOUNTER 2022-11-09 | Outpatient (REF) | payer OTHER, SELFPAY | END 2022-11-09 00:01 | disposition home or self-care (01) | LOC: HO.HHCLNP | PROVIDERS: Visit Provider Registered Nurse | DX: Z20.822 Contact with and (suspected) exposure to COVID-19 (principal); R05.9 Cough, unspecified | CPT/HCPCS: 87636 ==

== ENCOUNTER 2023-01-02 18:22 | Emergency (ER) | payer OTHER, SELFPAY ==
[2023-01-02 18:37] VITALS: BP 179/99; PULSE 86; RESP 18; TEMP 36.8; O2SAT 97; BMI 45.3
--- NOTE | 2023-01-02 18:37 | ED.URI ---
HPI - URI/Sore Throat General Chief Complaint: Ear Problems Stated Complaint: ear infection Time Seen by Provider: 01/02/23 20:16 Source: patient History of Present Illness HPI Narrative: Patient is a 27 year old female who presents to the ED due to bilateral ear pain and sore throat that started 3 days ago. She notes associated headaches and nasal congestion but denies experiencing a fever or chills. She denies seeing any drainage or discharge from her ears bilaterally. She took motrin yesterday, which did not alleviate her symptoms. She states that her at home COVID test was negative. Related Data Home Medications Medication Instructions Recorded Confirmed hydrochlorothiazide 25 mg tablet 25 mg PO QAM 06/30/20 08/25/22 beclomethasone dipropionate 40 1 inh inhalation BID 02/03/21 08/25/22 mcg/actuation HFA breath activated aerosol (Qvar RediHaler) Previous Rx's Medication Instructions Recorded acetaminophen 500 mg tablet 1,000 mg PO Q6H #60 tabs 01/30/21 docusate sodium 100 mg capsule 100 mg PO BID #30 caps 01/30/21 (Colace) amlodipine 5 mg tablet 10 mg PO DAILY #180 tabs 07/30/21 fluticasone propionate 50 1 spray intranasal BID #16 grams 09/03/22 mcg/actuation nasal spray,suspension (24 Hour Allergy Relief) ibuprofen 600 mg tablet 600 mg PO Q8H PRN fever or pain 09/03/22 #14 tabs Allergies Allergy/AdvReac Type Severity Reaction Status Date / Time No Known Allergies Allergy Verified 08/25/22 14:21 Review of Systems Constitutional: Constitutional: Denies chills, Denies fever(s) and Reports headache(s) ENT: Denies ear discharge, Reports otalgia, Reports headache(s), Reports nasal congestion and Reports sore throat Cardiovascular: Cardiovascular: Denies chest pain and Denies dyspnea Respiratory: Respiratory: Denies dyspnea Gastrointestinal: Gastrointestinal: Denies abdominal pain Musculoskeletal: Musculoskeletal: Denies back pain Neurologic: Reports headache(s) [facility]LY [facility] Past Medical History Medical History Essential hypertension Non-rheumatic mitral regurgitation Surgical History History of brain shunt History of cardiac catheterization History of foot surgery History of laparoscopy History of lumbar fusion (~2009) S/P laparoscopic cholecystectomy Status post catheter-placed plug or coil occlusion of PDA Family History Family History Father Heart attack Stroke Heart disease Mother History of cholecystectomy Brother No problems noted. Brother No problems noted. Sister No problems noted. Maternal Grandmother Breast cancer Social History Social History Household Members: Family Housing: Apartment Do you presently have visiting nurse or other home services: No Alcohol intake: current Alcohol intake frequency: does not drink Patient Tobacco Use Status: Never used Tobacco Smoked in Last 30 Days: Yes Use of substances other than those prescribed or required for medical reasons: No Advance Directives: No Advance Directives Information Provided: No Patient : No service: No Current occupational status: unemployed Physical Exam Vital Signs: Vital Signs: Last Vital Signs Temp 98.8 F 01/02/23 19:58 Pulse 78 01/02/23 19:58 Resp 14 01/02/23 19:58 BP 163/90 H 01/02/23 19:58 Pulse Ox 97 01/02/23 18:37 O2 Del Method Room Air 01/02/23 18:37 BMI result Body Mass Index 45.3 Const: General: healthy appearing, comfortable, no acute distress, alert and awake Nutritional Appearance: well nourished Orientation/consciousness: patient oriented x3 HEENT: Other: There is a small cerumen buildup in the right x-ray ear canal. No erythema, no drainage. Tympanic membrane without evidence of perforation. Left tympanic membrane tele visualized pearly white without perforation or effusion or erythema. External canal normal on left. Head: Yes normocephalic and Yes atraumatic Ears: TM normal on the left Throat: Yes posterior oropharynx normal Eyes: Eyelids: Yes eyelids normal Conjunctivae: conjunctivae normal Sclerae: sclerae normal Corneas: corneas normal Pupils: Equal, round and reactive pupils present EOM: EOMs intact bilaterally Neck: Neck: Yes full ROM Resp: Effort & Inspection: normal respiratory effort, able to speak in complete sentences and not labored Cardio: Rate: regular rate Rhythm: regular rhythm GI: Inspection: No distended Skin: General skin exam: no rashes or lesions noted and elasticity normal Neuro: General: patient oriented x3 Cranial nerves: Yes Equal, round and reactive pupils present and Yes Bilaterally intact EOM present Cognition (Neuro): normal cognition Course Course Course Narrative: This is a rapid medical exam. Deferred additional HPI, ROS, PE to primary provider. 27 yo female with history of asthma, HTN here sore throat, bilateral ear pain x several days. Did home covid test and negative VSS WIll obtain covid/strep testing. Medical Decision Making Medical Decision Making MDM Narrative: 27-year-old female presents for evaluation of sore throat and ear pain. Other than the small cerumen impaction on the right, the patient has no objective findings. COVID test negative, strep test negative. The patient likely has a mild viral syndrome. Differential Diagnosis Differential Diagnoses: The differential diagnosis associated with the presentation includes Viral syndrome Otitis media Otitis externa Pharyngitis Strep throat COVID-19 Cerumen impaction Lab Data Labs: Lab Results 01/02/23 01/02/23 Range/Units 18:47 19:50 COVID-19 ([facility]) Negative (Negative) COVID-19 Clin Com See Note S. pyogenes GrpA [facility] Negative (Negative) Discharge Plan Discharge Clinical Impression: Acute viral syndrome Patient Disposition: Home, Self-Care Instructions: Viral Syndrome (ED) Additional Instructions: You tested negative for COVID and negative for strep throat Use ibuprofen and Tylenol for pain Drink lots of fluids You have a small amount of cerumen (earwax) buildup in your right ear You may use [id number] Debrox drops to help clear this Prescriptions: No Action amlodipine 5 mg tablet 10 mg PO DAILY Qty: 180 0RF Rx Instructions: Please call and schedule cardiology follow-up acetaminophen 500 mg tablet 1,000 mg PO Q6H Qty: 60 1RF docusate sodium [Colace] 100 mg capsule 100 mg PO BID Qty: 30 1RF fluticasone propionate [24 Hour Allergy Relief] 50 mcg/actuation spray,suspension 1 spray intranasal BID Qty: 16 0RF Rx Instructions: administer into each nostril ibuprofen 600 mg tablet 600 mg PO Q8H PRN (Reason: fever or pain) Qty: 14 0RF hydrochlorothiazide 25 mg tablet 25 mg PO QAM Qvar RediHaler 40 mcg/actuation HFA aerosol breath activated 1 inh inhalation BID Interventions: ED Discharge Assessment Last Done: 01/02/23 20:57 Discharge Date/Time: 01/02/23 20:58
[2023-01-02 19:03] LABS: IDNOW Serial# 08D9AD1C
[2023-01-02 19:07] LABS: COVID-19 Test Negative (Negative)
[2023-01-02 19:58] VITALS: BP 163/90; PULSE 78; RESP 14; TEMP 37.1
--- NOTE | 2023-01-02 20:03 | PC.NURSE ---
Pt aox4 resting at the bedside. Reporting bilateral ear pain, sore throat, and headache x3 days. Denies fever/chills. Pending physician eval.
[2023-01-02 20:05] LABS: IDNOW Serial# 6674DD1D; Strep A Nucleic Acid Negative (Negative)
== END 2023-01-02 20:58 | disposition home or self-care (01) ==
PROVIDERS: Nurse Practitioner Family; Emergency Provider Emergency Medicine; PCP Nurse Practitioner Primary Care
DX: B34.9 Viral infection, unspecified (principal); H92.03 Otalgia, bilateral; Z20.822 Contact with and (suspected) exposure to COVID-19; Z20.828 Contact with and (suspected) exposure to other viral communicable diseases; Z79.899 Other long term (current) drug therapy
CPT/HCPCS: 87635; 87651; 99284

== ENCOUNTER 2023-01-24 14:51 | Outpatient (REF) | payer OTHER, SELFPAY ==
[2023-01-24 16:17] LABS: Estimated Average Glucose 103 mg/dL; Hemoglobin A1c % 5.2 % (<6.0)
== END 2023-01-24 14:52 | disposition home or self-care (01) ==
LOC: HO.HHCL 14:51
PROVIDERS: Visit Provider Nurse Practitioner Primary Care
DX: R73.01 Impaired fasting glucose (principal)
CPT/HCPCS: 36415; 83036

== ENCOUNTER 2023-01-28 13:06 | Inpatient (IN) | payer OTHER, SELFPAY ==
[2023-01-28] VITALS (9 sets, daily range): BP systolic 131–171; BP diastolic 61–94; PULSE 99–118; RESP 18–19; TEMP 36.2–37; O2SAT 88–97; BMI 46.9
--- NOTE | ~2023-01-28 | XR_ITS ---
EXAMINATION: XR CHEST CLINICAL INFORMATION: Cough, shortness of breath and asthma COMPARISON: 12/23/2019. TECHNIQUE: 2 views of the chest were obtained. FINDINGS: Heart and mediastinum within normal limits. Bilateral hilar prominence and patchy opacities right base. No vascular congestion. Mensah rods and wires. XR/XR chest 2V IMPRESSION: Suspicion for right base pneumonia and hilar adenopathy. CT recommended.
--- NOTE | ~2023-01-28 | CT_ITS ---
EXAMINATION: CT CHEST WITHOUT CONTRAST CLINICAL INFORMATION: Shortness of breath. COMPARISON: Correlation made with CT abdomen performed 07/06/2022 TECHNIQUE: Multidetector volumetric CT imaging of the chest was done. Axial MIP volume rendering provided. Sagittal and coronal reformatted images were obtained. This CT examination was performed using dose optimization techniques as appropriate, variously including the following: *Automated exposure control *Adjustment of mA and/or kV according to patient size (this includes techniques or standardized protocols for targeted exams where dose is matched to indication/reason for exam; i.e. extremities or head) *Use of iterative reconstruction technique DLP: 310 mGy-cm FINDINGS: FOSTER CARE CASE MANAGER: Unremarkable LUNGS: There is right middle lobe consolidation. There is minimal inferior right upper lobe atelectasis. MEDIASTINUM: The mediastinum is normal. CORONARY ARTERY CALCIFICATION: Mild PLEURA: There is no pleural effusion. No pleural mass or thickening. AXILLA: No lymphadenopathy. UPPER ABDOMEN: There is an 8.5 cm splenic hypodensity likely a cyst. OSSEOUS STRUCTURES: There is thoracolumbar orthopedic hardware in place. There is mild curvature of the thoracic spine to the right. CT/CT chest wo IV con IMPRESSION: Right middle lobe consolidation possibly pneumonia or combination of pneumonia and atelectasis. Correlation needed. Fleischner guidelines were followed.
--- NOTE | 2023-01-28 13:11 | ED.CHESTPAIN ---
HPI - Chest Pain General Chief Complaint: Upper Respiratory Symptoms Stated Complaint: chest tightness, weakness Time Seen by Provider: 01/28/23 13:22 Source: patient Mode of arrival: ambulatory Limitations: no limitations History of Present Illness HPI narrative: 27 y o female PMH asthma, HTN, previous NSTEMI presenting for evaluation of cough, congestion, shortness of breath, generalized weakness and fever since yesterday morning. Reports mother at home has bronchitis, took a COVID test at home which came back negative. She describes a frequent productive cough which causes burning in the chest and associated chest pain while coughing. Also reporting chest tightness and wheezing, reporting increased use of her albuterol inhaler at home. States that when she is walking long distances she becomes short of breath and feels like she is going to pass out. She also endorses subjective fevers at home to 102F yesterday and chills this morning, has been taking Tylenol with some relief. Denies nausea, vomiting, abdominal pain, diarrhea, dysuria, numbness and tingling. Related Data Home Medications Medication Instructions Recorded Confirmed hydrochlorothiazide 25 mg tablet 25 mg PO QAM 06/30/20 08/25/22 beclomethasone dipropionate 40 1 inh inhalation BID 02/03/21 08/25/22 mcg/actuation HFA breath activated aerosol (Qvar RediHaler) Previous Rx's Medication Instructions Recorded acetaminophen 500 mg tablet 1,000 mg (2 x 500 mg) PO Q6H #60 01/30/21 tabs docusate sodium 100 mg capsule 100 mg PO BID #30 caps 01/30/21 (Colace) amlodipine 5 mg tablet 10 mg (2 x 5 mg) PO DAILY #180 tabs 07/30/21 fluticasone propionate 50 1 spray intranasal BID #16 grams 09/03/22 mcg/actuation nasal spray,suspension (24 Hour Allergy Relief) ibuprofen 600 mg tablet 600 mg PO Q8H PRN fever or pain 09/03/22 #14 tabs Allergies Allergy/AdvReac Type Severity Reaction Status Date / Time No Known Allergies Allergy Verified 01/28/23 13:11 Review of Systems Review of Systems: Constitutional : No Weight loss, No Fever, +Chills, No Fatigue, No Malaise ENT/Mouth : No sore throat, No Rhinorrhea Cardiovascular : + Chest Pain, + SOB, No Dyspnea on Exertion, No Orthopnea, No Edema, No Palpitations, Respiratory : +Cough, + Sputum, + Wheezing Gastrointestinal : No Nausea, No Vomiting, No Diarrhea, No Constipation, No abdominal Pain, No Hematochezia, No Melena Genitourinary : No Dysuria, No Urinary Frequency, No Hematuria Musculoskeletal : No joint pain, No Myalgias, No Joint Swelling Skin : No Skin Lesions, No rash Neuro : No Weakness, No Numbness, No Dizziness, No Headache Psych : No Anxiety/Panic, No Depression All other systems reviewed and are negative Yes all other systems are reviewed and are negative [facility] Past Medical History Attestation statement: The following information was validated with the patient. 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 Brother No problems noted. Sister No problems noted. Maternal Grandmother Breast cancer Social History Social History Household Members: Family Housing: Apartment Do you presently have visiting nurse or other home services: No Alcohol intake: current Alcohol intake frequency: does not drink Patient Tobacco Use Status: Never used Tobacco Advance Directives: Yes Advance Directives Information Provided: Yes Advance Directives on File: Yes Advance Directives Date on File: 02/02/21 service: No Current occupational status: unemployed Physical Exam Vital Signs: Vital Signs: Last Vital Signs Temp 98.6 F 01/28/23 13:12 Pulse 99 01/28/23 13:35 Resp 18 01/28/23 13:35 BP 171/94 H 01/28/23 13:12 Pulse Ox 88 L 01/28/23 14:55 O2 Del Method Room Air 01/28/23 14:53 BMI result Body Mass Index 46.9 VSS, currently afebrile, last Acetaminophen use 929 this morning Appearance: Alert.? Oriented X3.? No acute distress.? Head: Normocephalic, atraumatic, no step-offs or deformities Eyes: Pupils equal, round and reactive to light.? Neck: Normal inspection.? Neck supple.? CVS: Normal heart rate and rhythm.? Pulses normal.? Respiratory: No respiratory distress.?No tripoding, no tracheal deviation, equal chest rise and fall. Expiratory wheezing heard in all chow, also with crackles in the RLL Abdomen: Soft and nontender.? Skin: Skin warm and dry.? Normal skin color.? Normal skin turgor.? Extremities: No lower extremity edema.? No calf ttp. 5/5 strength to bilateral upper and lower extremities Neuro: Oriented X 3.? No motor deficit.? No sensory deficit. CN 2-12 intact Course Course Course Narrative: This is an RME: Additional HPI, ROS, PE not included below will be deferred to primary provider. Patient is a 27-year-old female who presents to emergency department for evaluation of 2 days with fever, rhinorrhea, cough, difficulty breathing, generalized weakness, somewhat similar to past asthma exacerbations. House contacts are ill with similar symptoms. Plan: viral testing Reevaluation(s) Reevaluation #1: Patient with slight improvement of wheezing with bronchodilator protocol and inhaler however still present. For this reason decided to order blood cultures, lactic acid, basic labs. Chest x-ray which is ordered from triage showing right base pneumonia and hilar adenopathy. At this time infection is suspected will cover with broad-spectrum antibiotics ceftriaxone 1 g IV as well as magnesium and Solu-Medrol will reach out to respiratory to give more breathing treatments. Time: 15:11 Reevaluation #2: We did have the patient ambulate within pulse oximeter, 75% on room air than 88%. Time: 15:18 Reevaluation #3: Negative dimer. SOB likely pna. Time: 16:23 Medications Administered Generic Name Dose Route Start Last Admin Trade Name Freq PRN Reason Stop Dose Admin Magnesium Sulfate 2 gm in 50 mls @ 25 mls/hr 01/28/23 15:07 01/28/23 16:10 Magnesium Sulfate/H2o IV 01/28/23 17:06 Infused ONCE ONE Infusion Discontinued Medications Generic Name Dose Route Start Last Admin Trade Name Miugel PRN Reason Stop Dose Admin Albuterol Sulfate 2.5 mg/ 5 mg 01/28/23 13:28 01/28/23 13:31 Albuterol Sulfate 2.5 mg INHALE 01/28/23 13:29 5 mg ONCE ONE Administration Sodium Chloride 3,270 mls @ 3,270 mls/hr 01/28/23 15:07 01/28/23 15:42 Ns 30 ml/kg infuse over 1 hr (3270 ml) 01/28/23 16:06 3,270 mls/hr IV Administration .Q1H STA Ceftriaxone Sodium 1 gm/ 50 mls @ 100 mls/hr 01/28/23 15:07 01/28/23 16:10 Sodium Chloride IV 01/28/23 15:36 100 mls/hr ONCE ONE Administration Methylprednisolone Sodium Succinate 125 mg 01/28/23 15:07 01/28/23 15:33 Methylprednisolone Sod Succ 125 Mg/2 Ml Vial IVPUSH 01/28/23 15:08 125 mg ONCE ONE Administration Medical Decision Making Medical Decision Making [facility] Narrative: 1318 27 y o female PMH asthma presenting with URI symptoms of cough, congestion, shortness of breath, chest tightness, generalized weakness, fever x2 days, household contact ill with bronchitis. PE significant for no respiratory distress.?No tripoding, no tracheal deviation, equal chest rise and fall. Expiratory wheezing heard in all chow, also with crackles in the RLL Concern for asthma exacerbation vs viral illness vs bronchitis vs COVID vs influenza vs pna. Will rule out pneumonia given fever and cough. I am not concerned for a pneumothorax, breath sounds present in all chow with no respiratory distress, speaking in full sentences. I do not suspect PE but will rule out with D-dimer. Plan -- imaging, bronch protocol Differential Diagnosis Differential Diagnoses: The differential diagnosis associated with the presentation includes Concern for asthma exacerbation vs viral illness vs bronchitis vs COVID vs influenza vs pna. Will rule out pneumonia given fever and cough. I am not concerned for a pneumothorax, breath sounds present in all chow with no respiratory distress, speaking in full sentences. I do not suspect PE but will rule out with D-dimer. Admission/Observation Consideration of admission/observation: Escalation of care including admission/observation considered Unlikely Lab Data [facility] Lab Attestation statement: I reviewed the patient's lab results. 01/28/23 15:16 01/28/23 15:16 Labs: Lab Results 01/28/23 01/28/23 Range/Units 13:22 15:16 WBC 13.4 H (4.8-10.8) X10*3/uL RBC 5.18 (4.20-5.50) X10*6/uL Hgb 13.7 (12.0-16.0) g/dl Hct 41.1 (37.0-47.0) % MCV 79.3 L (80.0-98.0) fL MCH 26.4 L (27.0-33.0) pg MCHC 33.3 (31.0-35.0) g/dl RDW 13.8 (11.0-16.0) % Plt Count 319 (160-400) X10*3/uL MPV 10.1 (9.4-12.3) fL Immature Gran % (Auto) 0.4 (0.0-0.4) % Neut % (Auto) 73.3 H (45-73) % Lymph % (Auto) 18.8 L (20-40) % Knott % (Auto) 4.6 (2-11) % Eos % (Auto) 2.5 (0-4) % Baso % (Auto) 0.4 (0-2) % Lymph # (Auto) 2.5 (1.2-4.9) X10*3/uL K[place]t # (Auto) 0.6 (0.1-1.2) X10*3/uL Eos # (Auto) 0.3 (0.0-0.4) X10*3/uL Baso # (Auto) 0.1 (0.0-0.2) X10*3/uL Abs Immat Gran (auto) 0.05 H (0.00-0.03) X10*3/uL Absolute Neuts (auto) 9.8 H (2.0-8.3) x10*3/uL Absolute Nucleated RBC 0.000 (0.0-0.012) X10*3/uL Nucleated RBC % (auto) 0.0 (0.0-0.2) /100WBC D-Dimer High Sensitivty 228 NG/ML Sodium 140 (135-145) mmol/L Potassium 3.8 (3.3-5.1) mmol/L Chloride 107 (96-108) mmol/L Carbon Dioxide 20 L (22-29) mmol/L Anion Gap 17 (12-20) BUN 14 (9-16) mg/dL Creatinine 0.82 (0.5-1.4) mg/dL Estim Creat Clear Calc 116.4 Estimated GFR > 60 Random Glucose 101 (60-115) mg/dL Lactic Acid 1.1 (0.5-2.0) mmol/L Calcium 9.8 (8.4-10.2) mg/dL Magnesium 1.9 (1.6-2.6) mg/dL Total Bilirubin 0.3 (0.0-1.0) mg/dL AST 18 (5-31) U/L ALT 17 (0-31) U/L Alkaline Phosphatase 98 (39-117) U/L Troponin I High Sens 26.0 H D (<3.5-17.0) ng/L Total Protein 8.1 H (6.5-8.0) g/dL Albumin 4.2 (3.5-5.0) g/dL COVID-19 ([facility]) Negative (Negative) COVID-19 Clin Com See Note Influenza Type A (POLO) Negative (Negative) Influenza Type B ([facility]O) Negative (Negative) Influenza A & B Note See Note Independent Interpretation I performed an independent interpretation of an: Plain X-Ray Radiology Impression Discussion of test interpretation with radiology: I have reviewed the radiologist's reading. External Record Review External record reviewed: Inpatient record, Outpatient record and Prior outpatient labs Critical Care Time Critical Care Time Critical Care Time: Yes Total Critical Care Time: 45 Attestation: I attest to this time spent taking care of the patient, obtaining history, physical, reviewing labs, imaging, speaking to my attending, speaking to specialist. Discharge Plan Discharge Clinical Impression: Hypoxia, Pneumonia Patient Disposition: Admitted As Inpatient Prescriptions: No Action amlodipine 5 mg tablet 10 mg PO DAILY Qty: 180 0RF Rx Instructions: Please call and schedule cardiology follow-up acetaminophen 500 mg tablet 1,000 mg PO Q6H Qty: 60 1RF docusate sodium [Colace] 100 mg capsule 100 mg PO BID Qty: 30 1RF fluticasone propionate [24 Hour Allergy Relief] 50 mcg/actuation spray,suspension 1 spray intranasal BID Qty: 16 0RF Rx Instructions: administer into each nostril ibuprofen 600 mg tablet 600 mg PO Q8H PRN (Reason: fever or pain) Qty: 14 0RF hydrochlorothiazide 25 mg tablet 25 mg PO QAM Qvar RediHaler 40 mcg/actuation HFA aerosol breath activated 1 inh inhalation BID
[2023-01-28] MEDS: Albuterol Sulfate 2.5 MG, Albuterol Sulfate (0.083%) 2.5 MG 5 MG INHALE (13:31)
[2023-01-28 13:52] LABS: COVID-19 Test Negative (Negative); IDNOW Serial# BCCEAD1C
[2023-01-28 13:57] LABS: IDNOW Serial# 08D9AD1C; Influenza A Negative (Negative); Influenza B2 Negative (Negative)
[2023-01-28 15:25] LABS: Basophils Absolute Auto 0.1 X10*3/uL (0.0-0.2); Basophils Percent Auto 0.4 % (0-2); Eosinophils Absolute Auto 0.3 X10*3/uL (0.0-0.4); Eosinophils Percent Auto 2.5 % (0-4); Hematocrit 41.1 % (37.0-47.0); Hemoglobin 13.7 g/dl (12.0-16.0); Imm Gran Abs Auto 0.05 X10*3/uL (0.00-0.03); Imm Gran Pct Auto 0.4 % (0.0-0.4); Lymphocytes Absolute Auto 2.5 X10*3/uL (1.2-4.9); Lymphocytes Percent Auto 18.8 % (20-40); MANUAL DIFF FLAG NO; Mean Corpuscular HGB Conc 33.3 g/dl (31.0-35.0); Mean Corpuscular Hemoglobin 26.4 pg (27.0-33.0); Mean Corpuscular Volume 79.3 fL (80.0-98.0); Mean Platelet Volume 10.1 fL (9.4-12.3); Monocytes Absolute Auto 0.6 X10*3/uL (0.1-1.2); Monocytes Percent Auto 4.6 % (2-11); Neutrophils Absolute Auto 9.8 x10*3/uL (2.0-8.3); Neutrophils Percent Auto 73.3 % (45-73); Platelet Count 319 X10*3/uL (160-400); Red Blood Count 5.18 X10*6/uL (4.20-5.50); Red Cell Distribution Width 13.8 % (11.0-16.0); White Blood Count 13.4 X10*3/uL (4.8-10.8)
[2023-01-28] MEDS: methylPREDNISolone Sod Succ 125 MG/2 ML VIAL IVPUSH (15:33)
[2023-01-28] MEDS: Magnesium Sulfate/H2O 2 GM/50 ML PIGGYBACK IV (15:35)
[2023-01-28 15:36] LABS: Lactic Acid 1.1 mmol/L (0.5-2.0)
[2023-01-28 15:50] LABS: Alanine Aminotransferase 17 U/L (0-31); Albumin Level 4.2 g/dL (3.5-5.0); Alkaline Phosphatase 98 U/L (39-117); Anion Gap 17 (12-20); Aspartate Amino Transferase 18 U/L (5-31); Bilirubin Total 0.3 mg/dL (0.0-1.0); Blood Urea Nitrogen 14 mg/dL (9-16); Calcium 9.8 mg/dL (8.4-10.2); Carbon Dioxide 20 mmol/L (22-29); Chloride 107 mmol/L (96-108); Creatinine Clr Calc Pharmacy 116.4; Estimated Glomerular Filt Rate > 60; Glucose Random 101 mg/dL (60-115); Potassium 3.8 mmol/L (3.3-5.1); Sodium 140 mmol/L (135-145); Total Protein 8.1 g/dL (6.5-8.0)
--- NOTE | 2023-01-28 16:01 | P.HPHOSP_ITS ---
History of Present Illness Date of Service: 01/28/23 Chief Complaint: SOB 27/F with morbid obesity, asthma, HTN, history of NSTEMI presenting with cough, fever and chills, and wheezing for 2 days. She reports some chest discomfort related to cough and fever of 102 yesterday. On prsentation found to be tachycardic,hypoxic, WBC is slightly high and WBC shows some inflitrate consistent with Pneumonia. She has been treated with bronchodilators, steroid and receiving IV Abx. Os sat has improved to 97 now, it was in the 70s earlier Review of Systems 2 Review of Systems: Gen: + fever Resp: + sob, no cough CV: no chest, no WILLAMS, no leg edema GI: No n/v, no abd pain Neuro: No confusion Yes all other systems are reviewed and are negative [facility] Medical History Essential hypertension Non-rheumatic mitral regurgitation Family History Father Heart attack Stroke Heart disease Mother History of cholecystectomy Brother No problems noted. Brother No problems noted. Sister No problems noted. Maternal Grandmother Breast cancer Surgical History S/P laparoscopic cholecystectomy History of foot surgery History of laparoscopy History of brain shunt Status post catheter-placed plug or coil occlusion of PDA History of lumbar fusion (~2009) History of cardiac catheterization Social History Household Members: Family Housing: Apartment Do you presently have visiting nurse or other home services: No Alcohol intake: current Alcohol intake frequency: does not drink Patient Tobacco Use Status: Never used Tobacco Tobacco use type: Cigarette Cigarette Packs Per Day: 0.5 Cigarettes Per Day: 10.0 Smoked in Last 30 Days: Yes e-Cigarette/Vaping Use: Former Use Patient Interested in Nicotine Replacement: Yes Use of substances other than those prescribed or required for medical reasons: No Currently Displaying Signs/Symptoms of Drug Intoxication Withdrawal: No Have you been hit, kicked, punched, or otherwise hurt by someone within the past year? If so, by whom?: No Do you feel safe in your current relationship?: Yes Are you made to feel afraid or neglected: No Advance Directives: Yes Advance Directives Information Provided: Yes Advance Directives on File: Yes Advance Directives Date on File: 02/02/21 Do you have thoughts of harming others: None Do you have a plan to hurt others: No Plan Recently lost weight without trying: No Nutrition Risks: No Nutritional Risk Patient : No service: No Current occupational status: unemployed Meds Allergies Allergy/AdvReac Type Severity Reaction Status Date / Time No Known Allergies Allergy Verified 01/28/23 13:11 Active Medications: Current Medications Sodium Chloride (Ns) 3,270 mls @ 3,270 mls/hr 30 ml/kg infuse over 1 hr (3270 ml) IV .Q1H STA Stop: 01/28/23 16:06 Last Admin: 01/28/23 15:42 Dose: 3,270 mls/hr Magnesium Sulfate (Magnesium Sulfate/H2o) 2 gm in 50 mls @ 25 mls/hr IV ONCE ONE Stop: 01/28/23 17:06 Last Admin: 01/28/23 15:35 Dose: 25 mls/hr Home Medications Medication Instructions Recorded Confirmed Last Taken Type hydrochlorothiazide 25 mg tablet 25 mg PO QAM 06/30/20 01/28/23 01/28/23 History beclomethasone dipropionate 40 1 inh inhalation BID 02/03/21 01/28/23 01/28/23 History mcg/actuation HFA breath activated aerosol (Qvar RediHaler) acetaminophen 500 mg tablet 1,000 mg PO Q6H PRN Pain 01/28/23 01/28/23 Unknown History albuterol sulfate 90 mcg/actuation 2 puff inhalation Q4-6H PRN 01/28/23 01/28/23 Unknown History aerosol inhaler Wheezing amlodipine 5 mg tablet 5 mg PO BID 01/28/23 01/28/23 01/28/23 History melatonin 10 mg tablet 10 mg PO BEDTIME 01/28/23 01/28/23 01/27/23 History Physical Exam 2 Vital Signs and Narrative: Vital Signs: Last Vital Signs Temp 98.6 F 01/28/23 13:12 Pulse 99 01/28/23 13:35 Resp 18 01/28/23 13:35 BP 171/94 H 01/28/23 13:12 Pulse Ox 88 L 01/28/23 14:55 O2 Del Method Room Air 01/28/23 14:53 BMI result Body Mass Index 46.9 Const: Other: Constitutional: Alert, in no distress, overweight. Mental Status: Oriented to person, place and time. Eyes: Pupils are equal, round and reactive to light. Ear, Nose and Throat: Oropharynx clear, mucous membranes moist. Ears and nose without eformities. Trachea midline. Respiratory: Clear to auscultation. No wheezing, rales or rhonchi. Cardiovascular: S1 S2 regular. No murmurs, rubs or gallops. Gastrointestinal: Abdomen soft, non-tender, non-distended. Normal bowel sounds.? Neurologic: Cranial nerves II-XII grossly intact. No focal neurological deficits. Moves all extremities spontaneously.? Skin: No rashes or lesions.? Musculoskeletal: No cyanosis or clubbing. Psychiatric: Normal mood and affect? Results Labs 01/28/23 15:16 01/28/23 15:16 Labs: Laboratory Results - last 24 hr 01/28/23 01/28/23 13:22 15:16 MCV 79.3 L MCH 26.4 L MCHC 33.3 RDW 13.8 Plt Count 319 MPV 10.1 Immature Gran % (Auto) 0.4 Neut % (Auto) 73.3 H Lymph % (Auto) 18.8 L [place]er % (Auto) 4.6 Eos % (Auto) 2.5 Baso % (Auto) 0.4 Lymph # (Auto) 2.5 [place]er # (Auto) 0.6 Eos # (Auto) 0.3 Baso # (Auto) 0.1 Abs Immat Gran (auto) 0.05 H Absolute Neuts (auto) 9.8 H Absolute Nucleated RBC 0.000 Nucleated RBC % (auto) 0.0 Anion Gap 17 Estim Creat Clear Calc 116.4 Estimated GFR > 60 Random Glucose 101 Lactic Acid 1.1 Calcium 9.8 Total Bilirubin 0.3 AST 18 ALT 17 Alkaline Phosphatase 98 Total Protein 8.1 H Albumin 4.2 COVID-19 ([facility]) Negative COVID-19 Clin Com See Note Influenza Type A ([facility]) Negative Influenza Type B ([facility]) Negative Influenza A & B Note See Note Imaging Radiologist's Impressions: Impressions Chest X-Ray 01/28/23 14:06 IMPRESSION: Suspicion for right base pneumonia and hilar adenopathy. CT recommended. Assessment and Plan (1) Asthma exacerbation: Status: Acute (2) Pneumonia: Status: Acute Plan 27/F with asthma, obesity here with asthma exacerbation precipitated by pneumonia, with acute hypoxic respiatoyr failure 1/Acute hypoxic resp failure, hypoxia improved with O2 2/asthma exacerbation--treat with bronchodilators, steroid, and O2 3/pneumnia--continue Ceftriaxone and Azithro 4/Morbid obesity, weight loss advised 5/tachycardia, d/t asthma should resolved. 6/chest pain mild increase in trop, likely related to hypoxia, repeat dvt prophylaxis, low risk Time Spent With Patient Time: Total time managing care of this patient today ____ minutes. Quality Stroke Does the patient have a stroke diagnosis?: No VTE Prior VTE?: No VTE Risk Level:: Medical - low VTE Device Contraindication: Treatment Not Indicated VTE Drug Contraindication: Treatment Not Indicated
[2023-01-28 16:10] LABS: Magnesium 1.9 mg/dL (1.6-2.6)
[2023-01-28] MEDS: cefTRIAXone sodium 1 GM in 0.9 % Sodium Chloride 50 ML IV (16:10)
[2023-01-28 16:19] LABS: D Dimer High Sensitivity 228 NG/ML
--- NOTE | 2023-01-28 16:59 | PHA.MEDREC ---
Pharmacy Consult ? Medication Reconciliation Pharmacy has completed the medication reconciliation. Patient reported medications. Tari Galo, SejalD
[2023-01-28] MEDS: Albuterol Sulfate (0.083%) 2.5 MG/3 ML VIAL.NEB 10 MG INHALE (18:49)
[2023-01-28 19:17] LABS: Troponin-I High Sensitivity 19.7 ng/L (<3.5-17.0)
[2023-01-28] MEDS: Nicotine 21 MG PATCH.TD24 TRANSDERMA (20:22)
[2023-01-28] MEDS: levalbuterol HCL 1.25 MG/3 ML VIAL.NEB INHALE (20:39)
[2023-01-29] VITALS (11 sets, daily range): BP systolic 137–170; BP diastolic 64–89; PULSE 80–109; RESP 18–20; TEMP 35.9–37.4; O2SAT 94–97
[2023-01-29] MEDS: levalbuterol HCL 1.25 MG/3 ML VIAL.NEB INHALE ×2 (00:05→07:20)
[2023-01-29] MEDS: 0.9 % Sodium Chloride Flush 3 ML SYRINGE IVFLUSH ×4 (01:13→21:57)
[2023-01-29] MEDS: methylPREDNISolone Sod Succ 40 MG/ML VIAL IVPUSH ×4 (01:13→22:02)
[2023-01-29] MEDS: Melatonin 3 MG TABLET 6 MG PO ×2 (01:22→21:54)
--- NOTE | 2023-01-29 09:21 | PM.DS ---
DS: Providers Provider Date of Service: 01/29/23 Date of admission: 01/28/23 16:30 Primary care physician: Alannah Bernard NP DS: Diagnosis Discharge Diagnosis (1) Asthma exacerbation: Status: Acute (2) Pneumonia: Status: Acute DS: Summary Hospital Course Hospital Course: Chief Complaint: SOB 27/F with morbid obesity, asthma, HTN, history of NSTEMI presenting with cough, fever and chills, and wheezing for 2 days. She reports some chest discomfort related to cough and fever of 102 yesterday. On prsentation found to be tachycardic,hypoxic, WBC is slightly high and WBC shows some inflitrate consistent with Pneumonia. She has been treated with bronchodilators, steroid and receiving IV Abx. Os sat has improved to 97 now, it was in the 70s earlier Hospital course: Patient presented with shortness of breath and was severely hypoxic, tachycardic and was diagnosed with pneumonia as cause of exacerbation of copd, she was also noted to have some elevation of troponin with chest pain related to cough. Ashtma exacerbation was treated with IV steroid, bronchodilators by Neb, and oxygen. She improved rapidly, hypoxia has resolved and presently sating 95% on room air, breathing eazy. Pneumonia was treaed IV ceftriaxone and Azithromycin in the ED, WBC was slighly raised at 13, and she had fever at home but not here. She is being transitiond to oral Ceftin 500 mg twice a day for total of 7 days of antibiotics. Elevated troponin I is likely due to hypoxia, PNA and level has since trended down, ECG show no acute ischemic chagnes.. Her HTN is no well controlled on Norvasc 5 bid and HCTZ 25, added Lisinopril 10 mg daily and will need med adjustment by PCP Time Spent with Patient Time attestation: Total time managing care of this patient today ____ minutes. Discharge coordination time: Greater than 30 minutes Quality: Safe Use of Opioids Does Pt have an Active Cancer Diagnosis on the Problem List?: No Quality: Stroke Does the patient have a stroke diagnosis?: No Physical Exam Vital Signs: Vital Signs: Last Vital Signs Temp 99.3 F 01/29/23 07:21 Pulse 98 01/29/23 07:22 Resp 18 01/29/23 07:22 BP 154/88 H 01/29/23 07:21 Pulse Ox 95 01/29/23 07:21 O2 Del Method Room Air 01/29/23 07:21 BMI result Body Mass Index 46.9 Const: Other: General: AO X 3, no acute distress Resp: CTA bilateral CVS: S1,S2,RRR GI: +BS, NT, no distention Skin: No rash Neuro: motor grossly intact Psych: appropriate affect DS: Data Data Completed and Pending Completed studies during hospitalization [Text1]: Procedures Resection of Gallbladder, Percutaneous Endoscopic Approach (01/30/21) Labs on day of discharge: Laboratory Results - last 24 hr 01/28/23 01/28/23 01/28/23 13:22 15:16 18:26 WBC 13.4 H RBC 5.18 Hgb 13.7 Hct 41.1 MCV 79.3 L MCH 26.4 L MCHC 33.3 RDW 13.8 Plt Count 319 MPV 10.1 Immature Gran % (Auto) 0.4 Neut % (Auto) 73.3 H Lymph % (Auto) 18.8 L [place] % (Auto) 4.6 Eos % (Auto) 2.5 Baso % (Auto) 0.4 Lymph # (Auto) 2.5 [place] # (Auto) 0.6 Eos # (Auto) 0.3 Baso # (Auto) 0.1 Abs Immat Gran (auto) 0.05 H Absolute Neuts (auto) 9.8 H Absolute Nucleated RBC 0.000 Nucleated RBC % (auto) 0.0 D-Dimer High Sensitivty 228 Sodium 140 Potassium 3.8 Chloride 107 Carbon Dioxide 20 L Anion Gap 17 BUN 14 Creatinine 0.82 Estim Creat Clear Calc 116.4 Estimated GFR > 60 Random Glucose 101 Lactic Acid 1.1 Calcium 9.8 Magnesium 1.9 Total Bilirubin 0.3 AST 18 ALT 17 Alkaline Phosphatase 98 Troponin I High Sens 26.0 H D 19.7 H Total Protein 8.1 H Albumin 4.2 COVID-19 ([facility]) Negative COVID-19 Clin Com See Note Influenza Type A (POLO) Negative Influenza Type B (POLO) Negative Influenza A & B Note See Note Discharge Plan Discharge Anticipated Discharge Date/Time: 01/29/23 09:23 Patient Disposition: Home, Self-Care Discharge Diagnosis: Pneumonia, asthma exacerbation, Referrals: Alannah Bernard [employer]ABYSITTER [Primary Care Provider] - 1 Week Discharge Medications: New cefuroxime axetil 500 mg Tablet 500 mg PO Q12H Qty: 10 0RF lisinopril 10 mg Tablet 10 mg PO DAILY Qty: 30 0RF Protocol: Hold for SBP< HOLD for SBP < : 90 Continued albuterol sulfate 90 mcg/actuation Hfa Aerosol Inhaler 2 puff INHALATION Q4-6H PRN (Reason: Wheezing) melatonin 10 mg Tablet 10 mg PO BEDTIME amlodipine 5 mg tablet 5 mg PO BID Rx Instructions: Please call and schedule cardiology follow-up acetaminophen 500 mg tablet 1,000 mg PO Q6H PRN (Reason: Pain) hydrochlorothiazide 25 mg tablet 25 mg PO QAM Qvar RediHaler 40 mcg/actuation HFA aerosol breath activated 1 inh inhalation BID Diet: Advance to usual diet Activity on Discharge: As tolerated Stand Alone Forms: Patient Portal Discharge page Care Plan Goals: recovery from pneumonia and asthma exacerbation Health Concerns: asthma exacerbation pneumonia Plan of Treatment: Use inhalers as directed take Ceftin (antibitiocs) to treat pneumonia, be sure to take all of it take Prednisone for asthma Lisinopril 10 mg daily prescribed to better control you blood pressure, follow up with your Doctor to have your blood pressure medication adjusted, check labs next week Assessment: as above
[2023-01-29] MEDS: amLODIPine Besylate 5 MG TABLET PO ×2 (09:43→21:54)
[2023-01-29] MEDS: Acetaminophen 325 MG TABLET 650 MG PO ×2 (09:43→14:15)
[2023-01-29] MEDS: hydroCHLOROthiazide 25 MG TABLET PO (09:43)
[2023-01-29 09:47] LABS: Hematocrit 37.4 % (37.0-47.0); Hemoglobin 12.4 g/dl (12.0-16.0); Mean Corpuscular HGB Conc 33.2 g/dl (31.0-35.0); Mean Corpuscular Hemoglobin 26.8 pg (27.0-33.0); Mean Corpuscular Volume 80.8 fL (80.0-98.0); Mean Platelet Volume 9.9 fL (9.4-12.3); Platelet Count 282 X10*3/uL (160-400); Red Blood Count 4.63 X10*6/uL (4.20-5.50); Red Cell Distribution Width 14.2 % (11.0-16.0); White Blood Count 18.7 X10*3/uL (4.8-10.8)
[2023-01-29] MEDS: Loratadine 10 MG TABLET PO (09:49)
[2023-01-29] MEDS: Nicotine 21 MG PATCH.TD24 TRANSDERMA (09:51)
--- NOTE | 2023-01-29 10:05 | HO.PM.IMPN ---
Subjective Subjective Date of Service: 01/29/23 Interval History: f/u on asthma, pna feels better, no hypoxia, still wheezing no chest pain Physical Exam Vital Signs: Vital Signs: Last Vital Signs Temp 99.3 F 01/29/23 07:21 Pulse 98 01/29/23 07:22 Resp 18 01/29/23 07:22 BP 154/88 H 01/29/23 07:21 Pulse Ox 95 01/29/23 07:21 O2 Del Method Room Air 01/29/23 07:21 BMI result Body Mass Index 46.9 Const: Other: General: AO X 3, no acute distress Resp: wheeze, no extra muscle use CVS: S1,S2,RRR GI: +BS, NT, no distention Skin: No rash Neuro: motor grossly intact Psych: appropriate affect Objective Data Active Medications Acetaminophen (Acetaminophen 325 Mg Tablet) 650 mg PO Q6H PRN PRN Reason: Pain, Mild (Pain Scale 1-3) Last Admin: 01/29/23 09:43 Dose: 650 mg Documented By: ZAIN Albuterol Sulfate (Albuterol Sulfate 90 Mcg 8 Gm Inhaler) 2 puff INHALE RQ4H PRN PRN Reason: Wheezing Albuterol Sulfate (Albuterol Sulfate (0.083%) 2.5 Mg/3 Ml Vial.Neb) 2.5 mg INHALE RQ4H WHILE AWAKE [facility] Amlodipine Besylate (Amlodipine Besylate 5 Mg Tablet) 5 mg PO BID [facility]; Protocol Last Admin: 01/29/23 09:43 Dose: 5 mg Documented By: ZAIN Cefuroxime Axetil (Cefuroxime Axetil 500 Mg Tablet) 500 mg PO Q12H [facility] Last Admin: 01/29/23 09:43 Dose: 500 mg Documented By: ZAIN Hydrochlorothiazide (Hydrochlorothiazide 25 Mg Tablet) 25 mg PO DAILY [facility]; Protocol Last Admin: 01/29/23 09:43 Dose: 25 mg Documented By: ZAIN Loratadine (Loratadine 10 Mg Tablet) 10 mg PO DAILY [facility] Last Admin: 01/29/23 09:49 Dose: 10 mg Documented By: ZAIN Magnesium Hydroxide (Milk Of Magnesia 30 Ml Oral.Susp) 30 ml PO DAILY PRN PRN Reason: Constipation Melatonin (Melatonin 3 Mg Tablet) 6 mg PO BEDTIME PRN PRN Reason: Insomnia Last Admin: 01/29/23 01:22 Dose: 6 mg Documented By: LILIAM Methylprednisolone Sodium Succinate (Methylprednisolone Sod Succ 40 Mg/Ml Vial) 40 mg IVPUSH Q8H [facility] Last Admin: 01/29/23 09:43 Dose: 40 mg Documented By: ZAIN Nicotine (Nicotine 21 Mg Patch.Td24) 21 mg TRANSDERMA DAILY [facility] Last Admin: 01/29/23 09:51 Dose: 21 mg Documented By: ZAIN Ondansetron HCl (Ondansetron Hcl 4 Mg/2 Ml Vial) 4 mg IVPUSH Q8H PRN PRN Reason: Nausea and Vomiting Sodium Chloride (0.9 % Sodium Chloride Flush 3 Ml Syringe) 3 ml IVFLUSH QSHIFT [facility] Last Admin: 01/29/23 09:42 Dose: 3 ml Documented By: ZAIN Labs 01/29/23 09:40 01/28/23 15:16 Labs: Laboratory Results - last 24 hr 01/28/23 01/28/23 01/29/23 13:22 15:16 09:40 MCV 79.3 L 80.8 MCH 26.4 L 26.8 L MCHC 33.3 33.2 RDW 13.8 14.2 Plt Count 319 282 MPV 10.1 9.9 Immature Gran % (Auto) 0.4 Neut % (Auto) 73.3 H Lymph % (Auto) 18.8 L [place] % (Auto) 4.6 Eos % (Auto) 2.5 Baso % (Auto) 0.4 Lymph # (Auto) 2.5 [place] # (Auto) 0.6 Eos # (Auto) 0.3 Baso # (Auto) 0.1 Abs Immat Gran (auto) 0.05 H Absolute Neuts (auto) 9.8 H Absolute Nucleated RBC 0.000 0.000 Nucleated RBC % (auto) 0.0 0.0 D-Dimer High Sensitivty 228 Anion Gap 17 Estim Creat Clear Calc 116.4 Estimated GFR > 60 Random Glucose 101 Lactic Acid 1.1 Calcium 9.8 Magnesium 1.9 Total Bilirubin 0.3 AST 18 ALT 17 Alkaline Phosphatase 98 Total Protein 8.1 H Albumin 4.2 COVID-19 ([facility]) Negative COVID-19 Clin Com See Note Influenza Type A ([facility]O) Negative Influenza Type B ([facility]O) Negative Influenza A & B Note See Note Assessment and Plan (1) Asthma exacerbation: Status: Acute (2) Pneumonia: Status: Acute Plan with asthma, obesity here with asthma exacerbation precipitated by pneumonia, with acute hypoxic respiatoyr failure 1/Acute hypoxic resp failure, hypoxia resolved 2/asthma exacerbation--treat with bronchodilators, steroid, and O2 PRN 3/pneumnia--add Ceftin 500 mg bid, elevated WBC due to steroid 4/Morbid obesity, weight loss advised 5/tachycardia, d/t asthma, and albuterol, improved 6/chest pain mild increase in trop, likely related to hypoxia, repeat dvt prophylaxis, low risk, ambulate, will reassess for dc later today Time Spent With Patient Time: Total time managing care of this patient today ____ minutes. Quality Stroke Does the patient have a stroke diagnosis?: No VTE Prior VTE?: No VTE Risk Level:: Medical - low VTE Device Contraindication: Treatment Not Indicated VTE Drug Contraindication: Treatment Not Indicated
[2023-01-29 10:24] LABS: Troponin-I High Sensitivity 15.8 ng/L (<3.5-17.0)
--- NOTE | 2023-01-29 11:39 | MHC.CM.PN ---
Addendum entered by Erika Paez 01/29/23 11:54: Patient has a HCP on file. Original Note: IMM 01/29/23 patient is independent with all functional mobility. She is employed by [employer]. She lives with her Mother. DP home self care. Patient will arrange for a parent to pick her up at discharge. Discharge may be later today. MD plans to reassess this afternoon.
[2023-01-29] MEDS: Albuterol Sulfate (0.083%) 2.5 MG/3 ML VIAL.NEB INHALE ×3 (12:48→19:08)
[2023-01-29] MEDS: guaiFENesin 100 MG/5 ML LIQUID PO (14:50)
[2023-01-30] VITALS (9 sets, daily range): BP systolic 139–209; BP diastolic 74–119; PULSE 90–102; RESP 15–20; TEMP 36.2–37.2; O2SAT 88–97
[2023-01-30] MEDS: Acetaminophen 325 MG TABLET 650 MG PO (05:32)
[2023-01-30] MEDS: Albuterol Sulfate (0.083%) 2.5 MG/3 ML VIAL.NEB INHALE ×2 (07:23→11:05)
[2023-01-30] MEDS: amLODIPine Besylate 5 MG TABLET PO (08:26)
[2023-01-30] MEDS: hydroCHLOROthiazide 25 MG TABLET PO (08:26)
[2023-01-30] MEDS: Loratadine 10 MG TABLET PO (08:27)
[2023-01-30] MEDS: Nicotine 21 MG PATCH.TD24 TRANSDERMA (08:27)
[2023-01-30] MEDS: methylPREDNISolone Sod Succ 40 MG/ML VIAL IVPUSH (08:28)
[2023-01-30] MEDS: guaiFENesin 100 MG/5 ML LIQUID PO (08:28)
[2023-01-30] MEDS: 0.9 % Sodium Chloride Flush 3 ML SYRINGE IVFLUSH (08:31)
[2023-01-30] MEDS: lisinopriL 10 MG TABLET PO (10:04)
--- NOTE | 2023-01-30 15:07 | MHC.CM.PN ---
order for home, self care. CM acknowledge.
== END 2023-01-30 15:08 | disposition home or self-care (01) | DRG 193 ==
LOC: HO.ED 16:24 → HO.EDOVER 16:37 → HO.IMC 18:32
PROVIDERS: Nurse Practitioner Family; Physician Assistant; Admitting Provider Internal Medicine; Emergency Provider Emergency Medicine Emergency Medical Services; PCP Nurse Practitioner Primary Care; Visit Provider Internal Medicine
DX: J18.9 Pneumonia, unspecified organism (principal); J96.01 Acute respiratory failure with hypoxia; J45.901 Unspecified asthma with (acute) exacerbation; Z68.42 Body mass index [BMI] 45.0-49.9, adult; J44.0 Chronic obstructive pulmonary disease with (acute) lower respiratory infection; J44.1 Chronic obstructive pulmonary disease with (acute) exacerbation; I10 Essential (primary) hypertension; E66.01 Morbid (severe) obesity due to excess calories; I25.2 Old myocardial infarction; Z20.822 Contact with and (suspected) exposure to COVID-19; Z79.899 Other long term (current) drug therapy
CPT/HCPCS: 36415; 71046; 71250; 80053; 83605; 83735; 84484; 85025; 85027; 85379; 87040; 87502; 87635; 94640; 99285; J0696; J2920; J2930; J3475

== ENCOUNTER → 2023-01-28 16:30 | Outpatient (BNV) | payer OTHER, SELFPAY | PROVIDERS: Admitting Provider Internal Medicine; Emergency Provider Emergency Medicine Emergency Medical Services; PCP Nurse Practitioner Primary Care; Visit Provider Internal Medicine | DX: J45.901 Unspecified asthma with (acute) exacerbation (principal); J18.9 Pneumonia, unspecified organism | CPT/HCPCS: 99223; 99232; 99239 ==

== ENCOUNTER 2024-07-27 22:59 | Emergency (ER) | payer OTHER, SELFPAY ==
--- NOTE | 2024-07-27 | ECG_ITS ---
Test Reason : cp Blood Pressure : */* mmHG Vent. Rate : 99 BPM Atrial Rate : 99 BPM P-R Int : 122 ms QRS Dur : 104 ms QT Int : 322 ms P-R-T Axes : 23 50 -58 degrees QTcB Int : 413 ms Normal sinus rhythm ST & T wave abnormality, consider inferior ischemia ST & T wave abnormality, consider anterolateral ischemia Abnormal ECG When compared with ECG of 20-Mar-2022 17:18, T wave inversion now evident in Inferior leads T wave inversion now evident in Lateral leads Referred By: Generic ED Physician Electronically Signed By: ERNESTO ARELLANO MD
--- NOTE | ~2024-07-27 | XR_ITS ---
CLINICAL HISTORY: cp sob EXAM: Two views of the chest. COMPARISON: CT/AK/SR - CT CHEST WO IV CON - 01/28/23 18:03 EDT FINDINGS: Normal cardiac, mediastinal, and hilar contours. Normal heart size. No pleural effusion or pneumothorax. Lungs are clear. No acute bone finding. Thoracolumbar posterior fixation rods noted. IMPRESSION: 1. No acute cardiopulmonary process demonstrated. This document has been electronically signed by: Khris Rivera MD on 07/27/2024 23:52:49
[2024-07-27 23:01] VITALS: BP 161/89; PULSE 100; RESP 17; TEMP 37.3; O2SAT 98; BMI 47.1
[2024-07-27 23:43] LABS: IDNOW Serial# 6674DD1D; Strep A Nucleic Acid Negative (Negative)
[2024-07-27 23:51] LABS: Alanine Aminotransferase 30 U/L (0-31); Alkaline Phosphatase 82 U/L (39-117); Anion Gap 12 (12-20); Aspartate Amino Transferase 35 U/L (5-31); Bilirubin Total 0.3 mg/dL (0.0-1.0); Blood Urea Nitrogen 17 mg/dL (9-16); Calcium 8.8 mg/dL (8.4-10.2); Carbon Dioxide 19 mmol/L (22-29); Chloride 109 mmol/L (96-108); Creatinine Clr Calc Pharmacy 121.6; Estimated Glomerular Filt Rate > 60; Glucose Random 117 mg/dL (60-115); Sodium 136 mmol/L (135-145); Total Protein 7.5 g/dL (6.5-8.0)
[2024-07-27 23:56] LABS: Troponin-I High Sensitivity 6.7 ng/L (<3.5-17.0)
[2024-07-28 00:06] LABS: Mean Platelet Volume 10.3 fL (9.4-12.3); PLT CLUMP 1; SCAN SMEAR FLAG 1
[2024-07-28 00:08] LABS: Basophils Percent Auto 0.2 % (0-2); Eosinophils Absolute Auto 0.1 X10*3/uL (0.0-0.4); Eosinophils Percent Auto 1.4 % (0-4); Hematocrit 33.9 % (37.0-47.0); Hemoglobin 11.7 g/dl (12.0-16.0); Imm Gran Abs Auto 0.02 X10*3/uL (0.00-0.03); Imm Gran Pct Auto 0.2 % (0.0-0.4); Lymphocytes Absolute Auto 0.6 X10*3/uL (1.2-4.9); Lymphocytes Percent Auto 6.9 % (20-40); MANUAL DIFF FLAG SCAN; Mean Corpuscular HGB Conc 34.5 g/dl (31.0-35.0); Mean Corpuscular Hemoglobin 27.2 pg (27.0-33.0); Mean Corpuscular Volume 78.8 fL (80.0-98.0); Monocytes Absolute Auto 0.6 X10*3/uL (0.1-1.2); Monocytes Percent Auto 7.2 % (2-11); Neutrophils Absolute Auto 7.1 x10*3/uL (2.0-8.3); Neutrophils Percent Auto 84.1 % (45-73)
[2024-07-28 00:13] LABS: Influenza A PCR NEGATIVE (Negative); Influenza B PCR NEGATIVE (Negative); Resp Syncy Virus RNA Qual PCR NEGATIVE (Negative); SARS COV2 PCR INHOUSE POSITIVE (Negative)
[2024-07-28 00:14] LABS: Platelet Count 205 X10*3/uL (160-400); White Blood Count 8.5 X10*3/uL (4.8-10.8)
[2024-07-28 00:15] LABS: SLIDE REVIEW VERIFIED
--- NOTE | 2024-07-28 03:14 | ED_ITS ---
HPI - General Adult General Chief complaint: Upper Respiratory Symptoms Stated complaint: hard time breathing/fever Time Seen by Provider: 07/28/24 03:12 Related Data Home Medications ?Medication ?Instructions ?Recorded ?Confirmed beclomethasone dipropionate 40 1 inh inhalation BID 02/03/21 01/28/23 mcg/actuation HFA breath activated aerosol (Qvar RediHaler) acetaminophen 500 mg tablet 1,000 mg PO Q6H PRN Pain 01/28/23 01/28/23 albuterol sulfate 90 mcg/actuation 2 puff inhalation Q4-6H PRN 01/28/23 01/28/23 aerosol inhaler Wheezing amlodipine 5 mg tablet 5 mg PO BID 01/28/23 01/28/23 melatonin 10 mg tablet 10 mg PO BEDTIME 01/28/23 01/28/23 Previous Rx's ?Medication ?Instructions ?Recorded cefuroxime axetil 500 mg tablet 500 mg PO Q12H #10 tabs 01/30/23 lisinopril 10 mg tablet 10 mg PO DAILY #30 tabs 01/30/23 hydrochlorothiazide 25 mg tablet 25 mg PO QAM #90 tabs 03/05/24 Allergies Allergy/AdvReac Type Severity Reaction Status Date / Time No Known Allergies Allergy Verified 07/27/24 23:07 [facility] Past Medical History Medical History Essential hypertension Non-rheumatic mitral regurgitation Surgical History S/P laparoscopic cholecystectomy History of foot surgery History of laparoscopy History of brain shunt Status post catheter-placed plug or coil occlusion of PDA History of lumbar fusion (~2009) History of cardiac catheterization Family History Family History Father Heart attack Stroke Heart disease Mother History of cholecystectomy Brother No problems noted. Brother No problems noted. Sister No problems noted. Maternal Grandmother Breast cancer Social History Social History Household Members: Family Housing: Apartment Do you presently have visiting nurse or other home services: No Alcohol intake: current Alcohol intake frequency: does not drink Patient Tobacco Use Status: Never used Tobacco Tobacco use type: Cigarette Cigarette Packs Per Day: 0.5 Cigarettes Per Day: 10.0 e-Cigarette/Vaping Use: Former Use Advance Directives: Yes Advance Directives on File: Yes Advance Directives Date on File: 02/02/21 Do you have a plan to hurt others: No Plan service: No Current occupational status: unemployed Physical Exam ED Vital Signs: Vital Signs - 24 hr 07/27/24 23:01 Temperature 99.2 F Pulse Rate 100 Respiratory Rate 17 Blood Pressure 161/89 H Pulse Oximetry 98 Oxygen Delivery Method Room Air BMI result Body Mass Index 47.1 Medical Decision Making Medical Decision Making MDM Narrative: I have independently reviewed the following tests: Labs: Chest x-ray: EKG: Lab Data 07/27/24 23:26 07/27/24 23:26 Labs: Lab Results 07/27/24 Range/Units 23:26 WBC 8.5 (4.8-10.8) X10*3/uL RBC 4.30 (4.20-5.50) X10*6/uL Hgb 11.7 L (12.0-16.0) g/dl Hct 33.9 L (37.0-47.0) % MCV 78.8 L (80.0-98.0) fL MCH 27.2 (27.0-33.0) pg MCHC 34.5 (31.0-35.0) g/dl RDW 13.0 (11.0-16.0) % Plt Count 205 D (160-400) X10*3/uL MPV 10.3 (9.4-12.3) fL Immature Gran % (Auto) 0.2 (0.0-0.4) % Neut % (Auto) 84.1 H (45-73) % Lymph % (Auto) 6.9 L (20-40) % [place] % (Auto) 7.2 (2-11) % Eos % (Auto) 1.4 (0-4) % Baso % (Auto) 0.2 (0-2) % Lymph # (Auto) 0.6 L (1.2-4.9) X10*3/uL [place] # (Auto) 0.6 (0.1-1.2) X10*3/uL Eos # (Auto) 0.1 (0.0-0.4) X10*3/uL Baso # (Auto) 0.0 (0.0-0.2) X10*3/uL Abs Immat Gran (auto) 0.02 (0.00-0.03) X10*3/uL Absolute Neuts (auto) 7.1 (2.0-8.3) x10*3/uL Absolute Nucleated RBC 0.000 (0.0-0.012) X10*3/uL Nucleated RBC % (auto) 0.0 (0.0-0.2) /100WBC Smear Tech's Comments VERIFIED Sodium 136 (135-145) mmol/L Potassium 4.0 (3.3-5.1) mmol/L Chloride 109 H (96-108) mmol/L Carbon Dioxide 19 L (22-29) mmol/L Anion Gap 12 (12-20) BUN 17 H (9-16) mg/dL Creatinine 0.78 (0.5-1.4) mg/dL Estim Creat Clear Calc 121.6 Estimated GFR > 60 Random Glucose 117 H (60-115) mg/dL Calcium 8.8 D (8.4-10.2) mg/dL Total Bilirubin 0.3 (0.0-1.0) mg/dL AST 35 H (5-31) U/L ALT 30 (0-31) U/L Alkaline Phosphatase 82 (39-117) U/L Troponin I High Sens 6.7 D (<3.5-17.0) ng/L Total Protein 7.5 (6.5-8.0) g/dL Albumin 4.0 (3.5-5.0) g/dL Influenza Type A (PCR) NEGATIVE (Negative) Influenza Type B (PCR) NEGATIVE (Negative) RSV RNA Qual (PCR) NEGATIVE (Negative) SARS-CoV-2 RNA (RT-PCR) POSITIVE A (Negative) S. pyogenes GrpA POLO Negative (Negative) Discharge Plan Discharge Prescriptions: No Action hydrochlorothiazide 25 mg tablet 25 mg PO QAM Qty: 90 3RF albuterol sulfate 90 mcg/actuation Hfa Aerosol Inhaler 2 puff INHALATION Q4-6H PRN (Reason: Wheezing) melatonin 10 mg Tablet 10 mg PO BEDTIME amlodipine 5 mg tablet 5 mg PO BID Rx Instructions: Please call and schedule cardiology follow-up acetaminophen 500 mg tablet 1,000 mg PO Q6H PRN (Reason: Pain) lisinopril 10 mg Tablet 10 mg PO DAILY Qty: 30 0RF Protocol: Hold for SBP< HOLD for SBP < : 90 cefuroxime axetil 500 mg Tablet 500 mg PO Q12H Qty: 10 0RF Qvar RediHaler 40 mcg/actuation HFA aerosol breath activated 1 inh inhalation BID Print Language: Indonesian
[2024-07-28 04:12] LABS: Troponin-I High Sensitivity 8.9 ng/L (<3.5-17.0)
[2024-07-28 06:13] VITALS: BP 171/83; PULSE 88; RESP 20; TEMP 37.2; O2SAT 99
--- NOTE | 2024-07-28 07:24 | ED_ITS ---
HPI - URI/Sore Throat General Chief Complaint: Upper Respiratory Symptoms Stated Complaint: hard time breathing/fever Time Seen by Provider: 07/28/24 03:12 Source: patient Mode of arrival: ambulatory Limitations: no limitations History of Present Illness ED Provider: Zo Ackerman APRN HPI Narrative: This is a 28-year-old female with a history of hypertension and asthma presents to the ER with 24 hours of nasal congestion, cough, shortness of breath, subjective fevers, chills. Patient denies vomiting, diarrhea, chest pain, neck pain, neck stiffness, headache, leg swelling, leg pain. Patient denies any recent travel. No sick contact. Denies any history of tobacco use, drugs or alcohol. Related Data Home Medications ?Medication ?Instructions ?Recorded ?Confirmed beclomethasone dipropionate 40 1 inh inhalation BID 02/03/21 01/28/23 mcg/actuation HFA breath activated aerosol (Qvar RediHaler) acetaminophen 500 mg tablet 1,000 mg PO Q6H PRN Pain 01/28/23 01/28/23 albuterol sulfate 90 mcg/actuation 2 puff inhalation Q4-6H PRN 01/28/23 01/28/23 aerosol inhaler Wheezing amlodipine 5 mg tablet 5 mg PO BID 01/28/23 01/28/23 melatonin 10 mg tablet 10 mg PO BEDTIME 01/28/23 01/28/23 Previous Rx's ?Medication ?Instructions ?Recorded cefuroxime axetil 500 mg tablet 500 mg PO Q12H #10 tabs 01/30/23 lisinopril 10 mg tablet 10 mg PO DAILY #30 tabs 01/30/23 hydrochlorothiazide 25 mg tablet 25 mg PO QAM #90 tabs 03/05/24 albuterol sulfate 90 mcg/actuation 2 puff inhalation Q4-6H PRN 07/28/24 aerosol inhaler shortness of breath or wheezing #8.5 grams benzonatate 200 mg capsule 200 mg PO TID PRN cough #15 caps 07/28/24 prednisone 20 mg tablet 60 mg (3 x 20 mg) PO DAILY #15 tabs 07/28/24 Allergies Allergy/AdvReac Type Severity Reaction Status Date / Time No Known Allergies Allergy Verified 07/27/24 23:07 Review of Systems 2 Review of Systems: Yes all other systems are reviewed and are negative Constitutional: Constitutional: Reports no additional constitutional complaints, Denies body ache(s), Reports chills, Reports fever(s), Denies headache(s) and Denies weakness Eyes: Eyes: Reports no additional eye complaints and Denies change in vision ENT: Reports system reviewed and no additional complaints, except as documented, Denies dizziness, Denies headache(s), Reports nasal congestion, Denies nasal discharge and Denies neck pain Cardiovascular: Cardiovascular: Reports no additional cardiovascular complaints, Denies chest pain, Denies leg edema and Reports dyspnea Respiratory: Respiratory: Reports no additional respiratory complaints, Reports cough and Reports dyspnea Gastrointestinal: Gastrointestinal: Reports no additional gastrointestinal complaints, Denies abdominal pain, Denies diarrhea, Denies nausea and Denies vomiting Genitourinary: Genitourinary: Reports no additional female genitourinary complaints and Denies urinary incontinence Musculoskeletal: Musculoskeletal: Reports no additional musculoskeletal complaints, Denies back pain, Denies arthralgias, Denies joint swelling, Denies neck pain, Denies numbness and Denies tingling Integumentary/Breasts: Skin/Breast: Reports system reviewed and no additional complaints, except as docu and Denies rash Neurologic: Reports system reviewed and no additional complaints, except as documented, Denies Abnormal speech present, Denies dizziness, Denies headache(s), Denies numbness, Denies tingling and Denies weakness PMFSH Past Medical History Attestation statement: The following information was validated with the patient. 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 Brother No problems noted. Sister No problems noted. Maternal Grandmother Breast cancer Social History Social History Household Members: Family Housing: Apartment Do you presently have visiting nurse or other home services: No Alcohol intake: current Alcohol intake frequency: does not drink Patient Tobacco Use Status: Never used Tobacco Tobacco use type: Cigarette Cigarette Packs Per Day: 0.5 Cigarettes Per Day: 10.0 e-Cigarette/Vaping Use: Former Use Advance Directives: Yes Advance Directives on File: Yes Advance Directives Date on File: 02/02/21 Do you have a plan to hurt others: No Plan service: No Current occupational status: unemployed Physical Exam 2 Vital Signs: Vital Signs: Last Vital Signs Temp 98.6 F 07/28/24 07:38 Pulse 85 07/28/24 07:38 Resp 20 07/28/24 07:38 BP 166/90 H 07/28/24 07:38 Pulse Ox 99 07/28/24 07:38 O2 Del Method Room Air 07/28/24 07:38 BMI result Body Mass Index 47.1 Const: General: cooperative, healthy appearing, comfortable and no acute distress Orientation/consciousness: patient oriented x3 Limitations: no limitations HEENT: Head: Yes normal to inspection Ears: hearing grossly normal bilaterally and TM's normal bilaterally General nose exam: Normal external nose present Face and sinus: Yes normal facial exam Mouth: Normal oral and palatal mucosa present Throat: Yes posterior oropharynx normal, Yes tonsils normal and Yes uvula midline Eyes: General: appearance normal, both eyes and all related structures P upils: Equal, round and reactive pupils present Neck: Neck: Yes normal visual inspection, Yes full ROM, Yes no lymphadenopathy and Yes no meningeal signs Chest: Chest palpation & inspection: normal inspection of the chest Resp: Effort & Inspection: normal respiratory effort Auscultation: clear to auscultation bilaterally Cardio: Rate: regular rate Rhythm: regular rhythm Peripheral pulses: P eripheral pulses 2+ throughout GI: Inspection: Yes normal to inspection Palpation (GI): Soft to palpation and nontender Auscultation: normal bowel sounds Back/Spine/Pelvis: Thoracic/Lumbar Spine: thoracic and lumbar spine normal to inspection Skin: General skin exam: no rashes or lesions noted Neuro: General: patient oriented x3, no meningeal signs, no focal motor deficits and normal sensation to monofilament Cranial nerves: Yes Equal, round and reactive pupils present Cognition (Neuro): normal cognition S peech: No Abnormal speech present Gait exam (Neuro): Normal gait present M otor exam (neuro): 5/5 motor strength present throughout Extrem: General: Yes normal to inspection, Yes no pedal edema and Yes no calf tenderness Course Course Course Narrative: COVID screen is positive. No hypoxia or tachypnea. X-ray shows no signs of infection. Labs are benign. Reviewed care at home with patient. Reviewed worrisome signs and symptoms of when to return to the emergency room. Comfortable plan for discharge home. Medical Decision Making Medical Decision Making [facility] Narrative: 28-year-old female with a history of asthma hypertension presents to the ER with 24 hours of viral symptoms. Exam is benign Vitals are stable Will send viral testing, obtain chest x-ray Differential Diagnosis Differential Diagnoses: The differential diagnosis associated with the presentation includes Viral syndrome, asthma exacerbation, influenza, otitis media Low suspicion for pneumonia Perc is 0. Low suspicion for PE Admission/Observation Consideration of admission/observation: Escalation of care including admission/observation considered COVID screen is positive. Patient has no hypoxia or tachypnea requiring supplemental oxygen and or admission for further management Lab Data [facility] Lab Attestation statement: I reviewed the patient's lab results. 07/27/24 23:26 07/27/24 23:26 Labs: Lab Results 07/27/24 07/28/24 Range/Units 23:26 03:43 WBC 8.5 (4.8-10.8) X10*3/uL RBC 4.30 (4.20-5.50) X10*6/uL Hgb 11.7 L (12.0-16.0) g/dl Hct 33.9 L (37.0-47.0) % MCV 78.8 L (80.0-98.0) fL MCH 27.2 (27.0-33.0) pg MCHC 34.5 (31.0-35.0) g/dl RDW 13.0 (11.0-16.0) % Plt Count 205 D (160-400) X10*3/uL MPV 10.3 (9.4-12.3) fL Immature Gran % (Auto) 0.2 (0.0-0.4) % Neut % (Auto) 84.1 H (45-73) % Lymph % (Auto) 6.9 L (20-40) % [facility] % (Auto) 7.2 (2-11) % Eos % (Auto) 1.4 (0-4) % Baso % (Auto) 0.2 (0-2) % Lymph # (Auto) 0.6 L (1.2-4.9) X10*3/uL [facility] # (Auto) 0.6 (0.1-1.2) X10*3/uL Eos # (Auto) 0.1 (0.0-0.4) X10*3/uL Baso # (Auto) 0.0 (0.0-0.2) X10*3/uL Abs Immat Gran (auto) 0.02 (0.00-0.03) X10*3/uL Absolute Neuts (auto) 7.1 (2.0-8.3) x10*3/uL Absolute Nucleated RBC 0.000 (0.0-0.012) X10*3/uL Nucleated RBC % (auto) 0.0 (0.0-0.2) /100WBC Smear Tech's Comments VERIFIED Sodium 136 (135-145) mmol/L Potassium 4.0 (3.3-5.1) mmol/L Chloride 109 H (96-108) mmol/L Carbon Dioxide 19 L (22-29) mmol/L Anion Gap 12 (12-20) BUN 17 H (9-16) mg/dL Creatinine 0.78 (0.5-1.4) mg/dL Estim Creat Clear Calc 121.6 Estimated GFR > 60 Random Glucose 117 H (60-115) mg/dL Calcium 8.8 D (8.4-10.2) mg/dL Total Bilirubin 0.3 (0.0-1.0) mg/dL AST 35 H (5-31) U/L ALT 30 (0-31) U/L Alkaline Phosphatase 82 (39-117) U/L Troponin I High Sens 6.7 D 8.9 (<3.5-17.0) ng/L Total Protein 7.5 (6.5-8.0) g/dL Albumin 4.0 (3.5-5.0) g/dL Influenza Type A (PCR) NEGATIVE (Negative) Influenza Type B (PCR) NEGATIVE (Negative) RSV RNA Qual (PCR) NEGATIVE (Negative) SARS-CoV-2 RNA (RT-PCR) POSITIVE A (Negative) S. pyogenes GrpA POLO Negative (Negative) Independent Interpretation I performed an independent interpretation of an: Plain X-Ray Interpretation: I independently reviewed the x-ray and agree with the radiology report Radiology Impression Discussion of test interpretation with radiology: I have reviewed the radiologist's reading. Radiologist Impression: [address] [address] XRay Report Signed Patient: Loni Lombardi MR#: [id number] : 1995 Acct:[id number] Age/Sex: 28 / F ADM Date: 07/27/24 Loc: HO.ED Attending Dr: Ordering Physician: Generic ED Physician Date of Service: 07/27/24 Procedure(s): XR chest 2V Accession Number(s): [id number] cc: Generic ED Physician; MARVA VIDES SENIOR FINANCIAL ANALYST~ CLINICAL HISTORY: cp sob EXAM: Two views of the chest. COMPARISON: CT/IL/SR - CT CHEST WO IV CON - 01/28/23 18:03 EDT FINDINGS: Normal cardiac, mediastinal, and hilar contours. Normal heart size. No pleural effusion or pneumothorax. Lungs are clear. No acute bone finding. Thoracolumbar posterior fixation rods noted. IMPRESSION: 1. No acute cardiopulmonary process demonstrated. This document has been Prescription Management I considered prescription management with: Antiviral Discussed antiviral medications for COVID. Patient declined treatment Chronic Conditions Asthma Discharge Plan Discharge Clinical Impression: COVID-19 Patient Disposition: Home, Self-Care Instructions: COVID-19 (Coronavirus Disease 2019) (ED) Additional Instructions: Take Motrin or Tylenol for pain or fever Increase fluids, rest Use your albuterol as needed Return for any chest pain, shortness of breath, fever which does not respond to Motrin or Tylenol Prescriptions: New albuterol sulfate 90 mcg/actuation HFA aerosol inhaler 2 puff inhalation Q4-6H PRN (Reason: shortness of breath or wheezing) Qty: 8.5 0RF benzonatate 200 mg capsule 200 mg PO TID PRN (Reason: cough) Qty: 15 0RF prednisone 20 mg tablet 60 mg PO DAILY Qty: 15 0RF No Action hydrochlorothiazide 25 mg tablet 25 mg PO QAM Qty: 90 3RF albuterol sulfate 90 mcg/actuation Hfa Aerosol Inhaler 2 puff INHALATION Q4-6H PRN (Reason: Wheezing) melatonin 10 mg Tablet 10 mg PO BEDTIME amlodipine 5 mg tablet 5 mg PO BID Rx Instructions: Please call and schedule cardiology follow-up acetaminophen 500 mg tablet 1,000 mg PO Q6H PRN (Reason: Pain) lisinopril 10 mg Tablet 10 mg PO DAILY Qty: 30 0RF Protocol: Hold for SBP< HOLD for SBP < : 90 cefuroxime axetil 500 mg Tablet 500 mg PO Q12H Qty: 10 0RF Qvar RediHaler 40 mcg/actuation HFA aerosol breath activated 1 inh inhalation BID Referrals: Marva Vides, SENIOR FINANCIAL ANALYST [Primary Care Provider] - 1 week Print Language: Indonesian
[2024-07-28 07:38] VITALS: BP 166/90; PULSE 85; RESP 20; TEMP 37; O2SAT 99
== END 2024-07-28 07:51 | disposition home or self-care (01) ==
PROVIDERS: Physician Assistant Medical; Emergency Provider Internal Medicine; PCP Nurse Practitioner Primary Care
DX: U07.1 COVID-19 (principal); R06.02 Shortness of breath; R50.9 Fever, unspecified; R07.89 Other chest pain; Z79.899 Other long term (current) drug therapy
CPT/HCPCS: 0241U; 36415; 71046; 80053; 84484; 85025; 87651; 93005; 99283; 99284

== ENCOUNTER → 2024-07-27 23:12 | Outpatient (BNV) | payer OTHER, SELFPAY | PROVIDERS: Emergency Provider Internal Medicine; PCP Nurse Practitioner Primary Care; Visit Provider Internal Medicine Cardiovascular Disease | DX: R94.31 Abnormal electrocardiogram [ECG] [EKG] (principal); R07.9 Chest pain, unspecified | CPT/HCPCS: 93010 ==

== ENCOUNTER → 2024-07-27 23:25 | Outpatient (BNV) | payer OTHER, SELFPAY | PROVIDERS: PCP Nurse Practitioner Primary Care; Visit Provider Radiology Diagnostic Radiology | DX: R07.9 Chest pain, unspecified (principal); R06.02 Shortness of breath | CPT/HCPCS: 71046 ==

== ENCOUNTER 2024-08-13 11:14 | Outpatient (AMB) | payer OTHER, SELFPAY ==
--- NOTE | 2024-08-13 11:17 | A.OFFVIS_ITS ---
Vital Signs 08/13/24 11:18 Height 5 ft Weight 240 lb 4.862 oz BMI 46.9 BP 140/80 H Blood Pressure Location Lt brachial Position Sitting Pulse 78 Pulse Source Pulse Oximeter Intake Visit Reasons: 1 year follow up/ refill meds r/s 06-05-24 Allergies No Known Allergies Allergy (Verified 07/27/24 23:07) Medication List - Last Reconciled 08/13/24 by Josef Kaminski MD acetaminophen 1,000 mg PO Q6H PRN albuterol sulfate 90 mcg/actuation 2 puffs inhalation Q4-6H PRN amlodipine 5 mg PO BID beclomethasone dipropionate 40 mcg/actuation (Qvar RediHaler) 1 inh inhalation BID hydrochlorothiazide 25 mg PO QAM melatonin 10 mg PO BEDTIME HPI Comments Details: Loni returns for follow-up after almost 2 years. She has chronic hypertension but difficult to control. However, she also does not come for appointments and very noncompliant and hence there is no way of following this regularly. Currently, listed to be taking amlodipine and hydrochlorothiazide. Patient states she does take them but again I can not be sure. In the past, she has had a syncopal episode with low blood pressures. At that time she also had some renal insufficiency. Her lisinopril and hydrochlorothiazide were decreased. Patient states she does go to Nephrology but not regularly. She has some random episodes of dizziness but otherwise no clear-cut symptoms like angina or shortness of breath. 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 Brother No problems noted. Sister No problems noted. Maternal Grandmother Breast cancer Social History Household Members: Family Housing: Apartment Do you presently have visiting nurse or other home services: No Alcohol intake: current Alcohol intake frequency: does not drink Patient Tobacco Use Status: Never used Tobacco Tobacco use type: Cigarette Cigarette Packs Per Day: 0.5 Cigarettes Per Day: 10.0 e-Cigarette/Vaping Use: Former Use Advance Directives Date on File: 02/02/21 service: No Current occupational status: unemployed Review of Systems Const Denies weakness ENT Reports dizziness Card Denies chest pain, Denies chest pain with activity, Denies syncope, Denies rapid heart rate, Denies pedal edema, Denies edema, Denies leg edema, Denies lightheadedness, Denies palpitations, Denies dyspnea, Denies dyspnea on exertion and Denies orthopnea Resp Denies cough, Denies dyspnea and Denies dyspnea on exertion GI Denies hematochezia and Denies change in stool character Musc Denies abnormal gait, Denies muscle cramps, Denies muscle weakness, Denies numbness, Denies radiating pain into limb and Denies tingling Neuro Denies abnormal gait, Reports dizziness, Denies syncope, Denies numbness, Denies tingling and Denies weakness Endo Denies palpitations Physical Exam Vital Signs: Last Vital Signs Pulse 78 08/13/24 11:18 BP 140/80 H 08/13/24 11:18 BMI result Body Mass Index 46.9 Const General: comfortable and no acute distress Orientation/consciousness: patient oriented x3 HEENT Other: Unremarkable Head: Yes normal to inspection Neck Neck: Yes normal visual inspection Chest Chest palpation & inspection: normal inspection of the chest Resp Auscultation: clear to auscultation bilaterally Cardio Palpation: normal PMI Heart sounds: S1 normal heart sound present, S2 normal heart sound present, no gallops, Murmur heart sound present systolic II/ and no rubs GI Palpation (GI): Soft to palpation Back/Spine/Pelvis Other: unremarkable Skin General skin exam: no rashes or lesions noted Neuro General: patient oriented x3 Extrem General: Yes normal to inspection Psych Mental Status: mental status grossly normal Assessment & Plan Assessment & Plan (1) Non-rheumatic mitral regurgitation: Code(s): I34.0 - Nonrheumatic mitral (valve) insufficiency Category: Medical Plan: SABINO 2020 had shown moderate regurgitation. Thickened leaflet tips but no other mitral valve pathology. No annular dilatation. Follow-up echocardiogram have been ordered many times but not followed through. Again ordering it today. Advised patient to follow through with this. (2) NSTEMI (non-ST elevated myocardial infarction): Code(s): I21.4 - Non-ST elevation (NSTEMI) myocardial infarction Category: Medical Plan: In the past, suspected myopericarditis. Cardiac catheterization did not show any coronary disease. No further workup at this time. (3) Essential hypertension: Code(s): I10 - Essential (primary) hypertension Category: Medical Plan: Very difficult to manage as she does not come for appointments. Hence not making any changes today. Currently listed to be on amlodipine/hydrochlorothiazide per documentation. Recommendation would be to follow this with PCP only due to lack of clear follow-up. 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
[2024-08-13 11:18] VITALS: BP 140/80; PULSE 78; BMI 46.9
--- OUTSIDE RECORDS SUMMARY | 2024-08-13 13:16 | XMS_ITS | Clinical Summary ---
Author Organization [facility] Facility Address [address] [place] [id number] Care Team Providers Care Kennel Supervisor Name Role Phone Unavailable Primary Care Provider Unavailabl e Medications predniSONE (DELTASONE) 20 MG tablet Take 40 mg by mouth 9 Active omeprazole (PriLOSEC) [address] capsule Take 1 capsule by mouth 1 (one) time each day Active polyethylene glycol (GLYCOLAX) 17 GM/SCOOP powder Take 17 g by mouth in the morning. 0 Active lisinopril 20 MG tablet Take 1 tablet by mouth in the morning. Active hydroCHLOROthia zide (HYDRODIURIL) 50 MG tablet Take 1 tablet by mouth 1 (one) time each day Active FLUoxetine (PROzac) 20 MG capsule Take 1 capsule by mouth 1 (one) time each day Active Cholecalciferol 50 MCG (2000 UT) capsule 1 capsule 1 (one) time each day Active Beclomethasone Diprop HFA (Qvar RediHaler) 40 MCG/ACT aerosol Acti ve azithromycin (ZITHROMAX) 250 MG tablet Take 2 tablets p.o. on day 1, then 1 tablet p.o. each day thereafter 9 Active amLODIPine (NORVASC) 5 MG tablet Take 10 mg by mouth 1 (one) time each day 1 Active albuterol (2.5 MG/3ML) 0.083% nebulizer solution 1 vial by Other route 4 (four) times a day Active Active Problems Problem Noted Date Diagnosed Date Mitral valve regurgitation 06/08/2021 Hydrocephalus 06/08/2021 Essential hypertension 06/08/2021 Acute non-ST segment elevation myocardial infarc tion 06/08/2021 Family History Medical History Relation Comments Heart disease Mother Hypertension Mother Relation Status Comments Father Alive Mother Alive Social History Tobacco Use Types Packs/Day Years Used Date Smoking Tobacco: Never Alcohol Use Standard Drinks/Week Comments No 0 (1 standard drink = 0.6 oz pur e alcohol) Comments Unknown Sex and Gender Information Value Date Recorded Sex Assigned at Not on file Legal Sex Female 4:43 PM EST Gender Identity Not on file Sexual Orientation Not on file Plan of Treatment Health Maintenance Due Date Last Done Comments Influenza Vaccine (Season Ended) 2024 02/19/2022, 02/12/2021, 02/13/2020, Additional history exists Hepatitis B Vaccine Completed 05/27/2017, 04/15/2015, 09/24/1997, Additional history exists Pneumococcal Vaccine: Peds (0 to 5 Years) and At-Risk Patients (6 to 49 Years) Aged Out No longer eligi ble based on patient's age to complete this topic Insurance [address] [address] [place] [id number] [facility] ([id number]) [place] [id number] [facility] ([id number])
--- OUTSIDE RECORDS SUMMARY | 2024-08-13 13:16 | XMS_ITS | Encounter Summary ---
Author Organization [employer] [facility] Address [address] [place] [address] Care Team Providers Care Universal Banker Name Role Phone Alannah Bernard Primary Care Provider [phone] Reason for Visit * Reason Onset Date Comments Nurse Triage 11/09/2022 Encounter Details Date Type Department Care Team ([facility] st Contact Info) Description 11/09/2022 Telephone [facility] [address], [place] [phone] Alannah Bernard ANP [address], [place] [phone] Nurse Triage Social History Tobacco Use Types Packs/Day Years Used Date Smoking Tobacco: Former Cigarettes Passive Smoke Exposure: Never Smokeless Tobacco: Never Alcohol Use Standard Drinks/Week Comments Not Currently 0 (1 standard drink = 0.6 oz pur e alcohol) Comments Unknown Sex and Gender Information Value Date Recorded Sex Assigned at Female 03/01/2022 10:34 AM EDT Legal Sex Female 10:34 AM EDT Gender Identity Female 03/01/2022 10:34 AM EDT Sexual Orientation Bisexual 03/01/2022 10 :34 AM EDT COVID-19 Exposure Response Date Recorded In the last 10 days, have yo u been in contact with someone who was confirmed or suspected to have Coronavirus/COVID-19? No / Unsure 11/09/2022 12:17 PM EDT documented as of this encounter Miscellaneous Notes * Telephone Encounter - Precious Anaya RN - 11/09/2022 10:43 AM EDT Triage call Pt reports cough, nausea, nasal congestion and fever started 11/05. Pt had fever just oneday, coughing caused nausea and vomiting x2days. Pt reports no fever today, cough is just a slight dry cough, nasal drainage is yellow. Pt has had diarrhea x1 in AM for two days. Pt is requesting an excuse for work. Pt has not worked since 11/04. Advised Pt to come to [facility] to be seen by provider and Pt agreed. Advised hydration 6-8 glasses of liquid daily and Pt agreed. Pt agreed with disposition. Insurance is verified as active . Protocol Used: Cough (Adult) Protocol-Based Disposition: Home Care Positive Triage Question: * Cough with no complications * All higher-acuity triage questions were negative Care Advice Discussed: * Reassurance and Education - Cough * Coughing Spells * Prevent Dehydration * Humidifier * Fever Medicines * Reasons To Call Back - Difficulty breathing - Cough lasts more than 3 weeks - Fever lasts more than 3 days * Telephone Encounter - Alea Samuels - 11/09/2022 10:29 AM EDT Symptoms: Chest Pain - Adult, Headache, Cough Outcome: Talk to a nurse or provider within 15 minutes Reason: Started within the past 3 days The caller accepted this outcome documented in this encounter Plan of Treatment Upcoming Encounters Date Type Department Care Team (Late st Contact Info) Description 09/27/2024 9:30 AM EDT Office Visit [facility] [address] [place] [address] Alannah Bernard ANP [address] [place] [address] documented as of this encounter Visit Diagnoses Not on filedocumented in this encounter Care Teams Universal Banker Relationship Specialty Start Date End Date Alannah Bernard ANP [address] [place] [address] PCP - General Family Medicine 05/05/20 documented as of this encounter
--- OUTSIDE RECORDS SUMMARY | 2024-08-13 13:17 | XMS_ITS | Clinical Summary ---
Author Organization [email or web address] Address [address] [place] [address] Care Team Providers Care Transmitter Engineer In Charge Name Role Phone Marva Vides SINGH Primary Care Provider [phone] Allergies No known active allergies Medications * This document contains information received from the source organization and may not represent a complete record from that organization. Blood Pressure Monitoring (Omron 3 Series BP Monitor) device USE TO CHECK BLOOD PRESSURE SEATED IN CHAIR WITH FEET ON FLOOR DIRECTED 2 Active Flovent HFA 110 MCG/ACT inhalerIndication s:Mild persistent asthma without complication Inhale 1 puff in the morning and at bedtime. 12 g 11 3 Active albuterol (2.5 MG/3ML) 0.083% nebulizer solution Inhale 2.5 mg every 6 (six) hours if needed. 9 Active melatonin 10 MG tablet Take 1 tablet by mouth at bedtime. OTC Active Semaglutide,0.25 or 0.5MG/DOS, (Ozempic, 0.25 or 0.5 MG/DOSE,) 2 MG/3ML solution pen-injectorIndic ations:PCOS (polycystic ovarian syndrome),Elevate d fasting glucose Inject 0.5 mg under the skin every 7 (seven) days. 3 mL 1 3 Active Ventolin HFA 108 (90 Base) MCG/ACT inhalerIndication s:Mild persistent asthma without complication INHALE 2 PUFFS EVERY 6 HOURS NEEDED FOR WHEEZING 18 g 2 4 Active amLODIPine (Norvasc) 5 MG tabletIndications :Essential hypertension TAKE 1 TABLET BY MOUTH EVERY DAY 90 tablet 1 4 Active hydroCHLOROthiazi de (HYDRODiuril) 25 MG tabletIndications :Essential hypertension TAKE 1 TABLET BY MOUTH EVERY DAY 90 tablet 1 4 Active Active Problems Problem Noted Date Diagnosed Date Routine physical examination 03/08/2024 Assessment & Plan (03/08/2024 3:34 PM EST): Patient's routine physical exam unremarkable aside from an elevated blood pressure due to the fact that she has not been taking her medications for months. Moderate anxiety 03/08/2024 Assessment & Plan (03/09/2024 12:47 PM EST): During IBH Consult Loni presenting with depressed mood, crying spells , hopelessness, irritable mood, loss of interests/pleasure , sense of isolation/loneliness , isolating, changes in sleep difficulty falling asleep, psychomotor agitation, fatigue/loss of energy, worthlessness, difficulty concentrating, indecisiveness and excessive worry/anxiety, difficulty controlling worry, anxiety/worry associated to restlessness and/or feeling keyed-up/On edge , easily fatigued , difficulty concentrating and/or mind going blank , irritability, and sleep disturbance difficulty falling asleep, and Fear ; for a period of 0-6 mo, 6-12 mo, for most or all symptoms in the context of relationship issues. Patient reported increase of sxs since the last three months. She was connected with MH services but lost care; not currently on meds. Loni lives with her fiance and step-children which are also identified as protective factors. Triggers identified as communication issues with partner, difficulty sharing emotions with others and fear due to current external events associated with politics. clinician engaged patient with active/reflective listening. Reviewed and assessed for risk, current stressors and protective factors using open-ended questions. Pt was self-referred to [facility], intake completed. Pt was given an appt for 03/26 @ 9 am for OP therapy. Psych referral will be within agency. clinician will be available to provide additional support if needed during next medical appointment. PCOS (polycystic ovarian syndrome) 01/20/2023 Myocardial infarction 05/20/2022 Overview (01/28/2023): cardiac cath 2019 w/ no coronary art dz, thought may have had elevated troponins d/t myopericarditis Follows w/ Dr. Kaminski Need to clarify when last stress test obtained Not on statin/BB/ASA as NSTEMI 04/02/2019 thought to have been in context of myopericarditis vs CAD (essentially normal cardiac cath 04/2019). However, did have stress test positive for septal wall ischemia. From hospital transfer summary 04/02/2019 Trop 1.8 on admit and downward since then. EKG with T wave inversion anteriorly. Echo shows EF 60-65%, no regional WMA, mod to severe MR, mod LA dilitation. Tx for NSTEMI. On Heparin drip for anticoagulation. Cardiac hx of PDA closure at 8 mo, HTN starting age 13. Could have had SCAD. Could have pericarditis with pleuritic nature of her discomfort. - Continue Heparin drip for anticoagulation - Continue Aspirin, Atorvastatin - Continue Labetolol, Amlodipine - Nuclear stress test positive for septal wall ischemia patient being transferred to [facility] for cardiac catheterization at a.m. Dr. Russell Recurrent major depression 05/20/2022 Assessment & Plan (03/09/2024 12:47 PM EST): clinician engaged patient with active/reflective listening. Reviewed and assessed for risk, current stressors and protective factors using open-ended questions. Pt was self-referred to [facility], intake completed. Pt was given an appt for 03/26 @ 9 am for OP therapy. Psych referral will be within agency. clinician will be available to provide additional support if needed during next medical appointment. Assessment & Plan (03/08/2024 3:19 PM EST): Patient interesting in talking with our [facility] clinician Chiari malformation type I 12/21/2021 Acute non-ST segment elevation myocardial infarc tion 06/08/2021 Hydrocephalus 06/08/2021 Mitral valve regurgitation 06/08/2021 Essential hypertension 01/26/2018 Overview (01/28/2023): Not on lisinopril d/t ADELE and hypotension per renal Dr. 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 Follow up with PCP for HTN Assessment & Plan (11/09/2022 2:11 PM EDT): -Initial BP 184/93, repeat 142/94 -Reports home BP well controlled, and that she experiences fluctuations in BP that are followed by Hydrate Control Tender -Continues with pharm and non-pharm interventions -Encouraged to follow up with Hydrate Control Tender, sooner as needed -ED precautions Hirsutism 01/26/2018 Irregular periods 01/26/2018 Scoliosis (and kyphoscoliosis), idiopathic 01/26 Vitamin D deficiency 01/26/2018 Encounters Date Type Department Care Team Description 08/01/2024 Telephone [facility] MEDICINE [address] [place] [address] [phone] Pilar Varghese, MARTINA Results 07/27/2024 Orders Only GENERIC EXTERNAL DATA DEPARTMENT Provider, Generic External Data from Last 3 Months Immunizations Name Administration Dates Next Due DTaP 2001, 9,08/18/1997,04/15,01/30/1997 HPV, Quadrivalent 04/15/2015 HPV, Unspecified 08/11/2009,04/02/2009, 9 Hep A, ped/adol, 2 dose 11/11/2015 Hep B, Unspecified 05/27/2017, 5,09/24/1997,01/29,1996,1996 HiB, unspecified 12/17/1999, 8,05/16/1997,01/30 IPV 2001, 9,04/15/1997,01/30 Influenza Injectable Quadriv alant Preservative Free IIV4 MDCK 02/13/2020 Influenza injectable quadriv alent IIV4 with preservative 02/22/2018,01/21/2015 Influenza injectable quadriv alent preservative free 01/20/2023,02/19/2022,02/12/2021,02/06,02/08/2017,01/13/2016 Influenza, Unspecified 01/19/2014,01/19/2013, Influenza, seasonal, injecta ble, preservative free 03/08/2024 MMR 05/27/2017, 5,2001,04/16 Meningococcal ACWY, unspecified 08/30/2014,11/27 Tdap 02/06/2019,11/27/2008 Varicella 12/23/2010,02/18/1999 Social History Tobacco Use Types Packs/Day Years Used Date Smoking Tobacco: Former Cigarettes Passive Smoke Exposure: Past Smokeless Tobacco: Never Tobacco Cessation:Counseling Given: Not Answered Comments:Pt vapes Alcohol Use Standard Drinks/Week Comments Not Currently 0 (1 standard drink = 0.6 oz pur e alcohol) Alcohol Answer Date Recorded Frequency of Alcohol Consumption Not on file 03/08/2024 Average Number of Drinks Not on file 024 Frequency of Binge Drinking Not on file 10/2023 Score 0 03/08/2024 Depression Answer Date Recorded Patient Health Questionnaire-9 Score 15 03/08/2024 Patient Health Questionnaire-9 Score 15 03/08/2024 Last PHQ-9: Questionnaire Data Not on file 1 05/08/2023 Housing Stability Answer Date Recorded What is your housing situation today? I have nataly soriano 03/01/[address] you li ve. Do you have problems with any of the following? None of the above 03/01/2024 Food Insecurity Answer Date Recorded Within the past 12 months, y ou worried that your food would run out before you got money to buy more: Never True 03/01/2024 Within the past 12 months,th e food you bought just didn't last and you didn't have enough money to get more: Never True Transportation Answer Date Recorded In the past 12 months, has l ack of transportation kept you from medical appts, meetings, work or from getting things needed for daily living? No 03/01/2024 Utilities Answer Date Recorded In the past 12 months, has t he electric, gas, oil or water company threatened to shut off services in your home? No 03/01/2024 Depression Answer Date Recorded Patient Health Questionnaire-2 Score 4 03/08/2024 Internet Access Answer Date Recorded Internet Access Q1 Yes 03/01/2024 Internet Access Q2 Not on file 03/01/2024 Comments Unknown Sex and Gender Information Value Date Recorded Sex Assigned at Female 03/01/2022 10:34 AM EDT Legal Sex Female 10:34 AM EDT Gender Identity Female 03/01/2022 10:34 AM EDT Sexual Orientation Bisexual 03/01/2022 10 :34 AM EDT Last Filed Vital Signs Vital Sign Reading Time Taken Comments Blood Pressure 164/84 03/08/2024 2:54 PM EST Pulse 65 03/08/2024 2:48 PM EST Temperature 36.3 ??C (97.3 ??F) 03/08/2024 2:48 PM ES T Respiratory Rate 20 03/08/2024 2:48 PM EST Oxygen Saturation 98% 03/08/2024 2:48 PM EST Inhaled Oxygen Concentration - - Weight 97.2 kg (214 lb 3.2 oz) 03/08/2024 2:48 P M EST Height 152.4 cm (5') 03/08/2024 2:48 PM EST Body Mass Index 41.83 03/08/2024 2:48 PM EST Plan of Treatment Upcoming Encounters Date Type Department Care Team (Late st Contact Info) Description 09/27/2024 9:30 AM EDT Office Visit [facility] MEDICINE [address] [place] [address] Marva Vides, ANP [address] [place] [address] Health Maintenance Due Date Last Done Comments HIV Screening 1996 Lipid Panel 1996 Family Planning (PISQ) 12/16/2011 Hepatitis C Screening 2014 Pneumococcal Vaccine: Pediatrics (0 to 5 Years) and At-Risk Patients (6 to 49) Years) (1 of 2 - PCV) 12/16/2015 Hepatitis A Vaccines (2 of 2 - 2-dose series) 05/13/2016 11/11/2015 HPV/Cotest 11/21/2023 Pap Smear 11/21/2023 11/20/2020 COVID-19 Vaccine ( season) 2024 07/08/2021, 08/07/2020, 07/08/2020 Depression Monitoring 09/05/2024 03/08/2024, 024 SDOH Screening 03/01/2025 03/01/2024 Alcohol/Substance Use Screening 03/08/2025 03/08/2024 Depression Screening 03/08/2025 03/08/2024, 03/08/20 24 Tobacco Screening 03/08/2025 03/08/2024 DTaP/Tdap/Td Vaccines (8 - Td or Tdap) 02/06/2029 02/06/2019, 11/27/2008, 2001, Additional history exists Zoster Vaccines (1 of 2) 2046 RSV Patients and Patients Aged 60 years or older (1 - 1-dose 75+ series) 12/16/2071 HIB Vaccines Completed 12/17/1999, 10/01, 05/16/1997, Additional history exists IPV Vaccines Completed 2001, 05/02, 04/15/1997, Additional history exists Meningococcal Vaccine Completed 08/30/2014, 009 HPV Vaccines Completed 04/15/2015, 07/31, 04/02/2009, Additional history exists Hepatitis B Vaccines Completed 05/27/2017, 04/15/2015, 09/24/1997, Additional history exists Influenza Vaccine Completed 03/08/2024, , 02/19/2022, Additional history exists RSV under 20 months Aged Out No longe r eligible based on patient's age to complete this topic Rotavirus Vaccines Aged Out No longer eligible based on patient's age to complete this topic Procedures Procedure Name Priority Date/Time Associated Diagnosis Comments HIGH SENSITIVITY TROPONIN I Routine 07/28/2024 3:43 AM EDT XR CHEST 2 VIEWS Routine 07/27/2024 11:5 2 PM EDT SLIDE REVIEW Routine 07/27/2024 11:26 PM EDT CBC WITH AUTO DIFFERENTIAL Routine 07/27/2024 11:26 PM EDT HIGH SENSITIVITY TROPONIN I Routine 07/27/2024 11:26 PM EDT COMPREHENSIVE METABOLIC PANEL Routine 07/27/2024 11:26 PM EDT SARS COV2/INFLUENZA A/B AND RSV RNA QL NAAT Routine 07/27/2024 11:26 PM EDT STREP A NUCLEIC ACID Routine 07/27/2024 11:26 PM EDT HM PAP/HPV Routine 11/20/2020 from Last 3 Months or Most Recently Relevant to Health Maintenance Results * High Sensitivity Troponin I (07/28/2024 3:43 AM EDT) Only the most recent of2 resultswithin the time period is included. TROPONIN I HIGH SENSITIVITY 8.9 <3.5 - 17.0 ng/L [facility] Comment:The Verma high sens itivity Troponin-I results should beused in conjunction with other diagnostic information suchas ECG, clinical observations and information, and patientsymptoms to aid in the diagnosis of DC. 07/28/2024 3:43 AM EDT 07/28/2024 3:46 AM EDT us Generic External Data Provider LAB BLOOD ORDERAB LES Final Result [facility] [address] [place] [phone] * XR Chest 2 Views (07/27/2024 11:52 PM EDT) Anatomical Region Laterality Modality Chest Radiographic Evie ging 07/27/2024 11:5 2 PM EDT Narrative 07/27/2024 11:54 PM EDT ? [facility] ?[address] ?[place] [address] ?XRay Report ? Signed ? Patient: Colon,Loni ?MR#: [id number] ?? 3 ? : 1995 ?Acct:[id number] ? Age/Sex: 28 / F ?ADM Date: 07/27/24 ? Loc: HO.ED ? Attending Dr: ? Ordering Physician: Generic ED Physician ?? Date of Service: 07/27/24 ?? Procedure(s): XR chest 2V ?? Accession Number(s): [id number] ? cc: Generic ED Physician; MARVA VIDES NP ? CLINICAL HISTORY: cp sob ? EXAM: Two views of the chest. ? COMPARISON: CT/RI/SR - CT CHEST WO IV CON - 01/28/23 18:03 EDT ? FINDINGS: ?? Normal cardiac, mediastinal, and hilar contours. ?? Normal heart size. ?? No pleural effusion or pneumothorax. ?? Lungs are clear. ?? No acute bone finding. Thoracolumbar posterior fixation rods noted. ? IMPRESSION: ?? 1. No acute cardiopulmonary process demonstrated. ? This document has been electronically signed by: Khris Rivera MD on ?? 07/27/2024 23:52:49 ? Dictated By: ?Khris Rivera MD ? Signed By: ?<Electronically signed by Khris Rivera MD in OV> ? 07/27/24 2354 ? DD/ 51 ? TD/TT: 07/27/242351 ? Cnp: ? Procedure Note Lyly Andersen - 07/27/2024 [place] [address] XRay Report Signed Patient: Loni LombardiMR#: [id number] 3 : 1995Acct:[id number] Age/Sex: 28 / FADM Date: 07/27/24 Loc: HO.ED Attending Dr: Ordering Physician: Generic ED Physician Date of Service: 07/27/24 Procedure(s): XR chest 2V Accession Number(s): [id number] cc: Generic ED Physician; MARVA VIDES NP CLINICAL HISTORY: cp sob EXAM: Two views of the chest. COMPARISON: CT/RI/SR - CT CHEST WO IV CON - 01/28/23 18:03 EDT FINDINGS: Normal cardiac, mediastinal, and hilar contours. Normal heart size. No pleural effusion or pneumothorax. Lungs are clear. No acute bone finding. Thoracolumbar posterior fixation rods noted. IMPRESSION: 1. No acute cardiopulmonary process demonstrated. This document has been electronically signed by: Khris Rivera MD on 07/27/2024 23:52:49 Dictated By: Khris Rivera MD Signed By: <Electronically signed by Khris Rivera MD in OV> 07/27/242353 DD/ 51 TD/TT: 07/27/242351 Cnp: [facility] External Provider IMG XR PROCEDURES Final Result * Slide Review (07/27/2024 11:26 PM EDT) Slide Review VERIFIED [facility] 07/27/2024 11:2 6 PM EDT 07/27/2024 11:31 PM EDT Generic External Data Provider LAB BLOOD ORDERAB LES Final Result Performing Organization Address [facility] Co de Phone Number [facility] [address] [place] [phone] * Strep A Nucleic Acid (07/27/2024 11:26 PM EDT) IDNOW SERIAL# [id number] [facility] Strep A Nucleic Acid Negative Negative [facility] Comment:All test results mus t be correlated with clinical findings.This test has not been evaluated for monitoring treatment ofinfection.Additional follow-up testing using the culture method isrequired if the result is negative and clinical symptomspersist, or in the event of an acute rheumatic feveroutbreak. 07/27/2024 11:2 6 PM EDT 07/27/2024 11:31 PM EDT Generic External Data Provider LAB MICROBIOLOGY - GENERAL ORDERABLES Final Result Performing Organization Address [facility] Co de Phone Number [facility] [address] [place] [phone] * (ABNORMAL) SARS-CoV-2 RNA, Influenza A/B, and RSV RNA, Ql NAAT (07/27/2024 11:26 PM EDT) Pathologist [facility] Influenza A PCR NEGATIVE Negative [facility] Influenza B PCR NEGATIVE Negative [facility] Resp Syncy Virus RNA Qual PCR NEGATIVE Negative [facility] SARS COV2 PCR POSITIVE(A) Negative [facility] Comment:All test results mus t be correlated with clinical findings.Negative results do not preclude SARS-CoV2, influenza Avirus, influenza B virus and/or RSV infectionand should not be used as the sole basis for treatment orother patient management decisions. Negative results must becombined with clinical observations, patient history, andepidemiological information.This test has not been evaluated for monitoring treatment ofinfection.This test has been authorized by the FDA under an EmergencyUse Authorization (EUA) for use by authorized laboratories.Testing performed on the Ghost GeneXpert utilizingreal-time RT-PCR.All SARS CoV2 and positive influenza A/B results arereported to [facility]. 07/27/2024 11:2 6 PM EDT 07/27/2024 11:31 PM EDT Generic External Data Provider LAB MICROBIOLOGY - GENERAL ORDERABLES Final Result [facility] [address] [place] [phone] * (ABNORMAL) CBC auto differential (07/27/2024 11:26 PM EDT) [facility] White Blood Count 8.5 4.8 - 10.8 X10*3/uL [facility] Red Blood Count 4.30 4.20 - 5.50 X10*6/uL [facility] Hemoglobin 11.7(L) 12.0 - 16.0 g/dl [facility] Hematocrit 33.9(L) 37.0 - 47.0 % [facility] Mean Corpuscular Volume 78.8(L) 80.0 - 98.0 fL [facility] Mean Corpuscular Hemoglobin 27.2 27.0 - 33.0 pg [facility] Mean Corpuscular HGB Conc 34.5 31.0 - 35.0 g/dl [facility] Red Cell Distribution Width 13.0 11.0 - 16.0 % [facility] Platelet Count 205 160 - 400 X10*3/uL [facility] Mean Platelet Volume 10.3 9.4 - 12.3 fL [facility] Neutrophils Percent Auto 84.1(H) 45 - 73 % [facility] Imm Gran Pct Auto 0.2 0.0 - 0.4 % [facility] Lymphocytes Percent Auto 6.9(L) 20 - 40 % [facility] Monocytes Percent Auto 7.2 2 - 11 % [facility] Eosinophils Percent Auto 1.4 0 - 4 % [facility] Basophils Percent Auto 0.2 0 - 2 % [facility] NRBC Pct Auto 0.0 0.0 - 0.2 /100WBC [facility] Neutrophils Absolute Auto 7.1 2.0 - 8.3 x10*3/uL [facility] Imm Gran Abs Auto 0.02 0.00 - 0.03 X10*3/uL [facility] Lymphocytes Absolute Auto 0.6(L) 1.2 - 4.9 X10*3/uL [facility] Monocytes Absolute Auto 0.6 0.1 - 1.2 X10*3/uL [facility] Eosinophils Absolute Auto 0.1 0.0 - 0.4 X10*3/uL [facility] Basophils Absolute Auto 0.0 0.0 - 0.2 X10*3/uL [facility] NRBC Abs Auto 0.000 0.0 - 0.012 X10*3/uL [facility] 07/27/2024 11:2 6 PM EDT 07/27/2024 11:31 PM EDT us Generic External Data Provider LAB BLOOD ORDERAB LES Edited Result - Final [facility] [address] [place] [phone] * (ABNORMAL) Comprehensive Metabolic Panel (07/27/2024 11:26 PM EDT) Sodium 136 135 - 145 mmol/L [facility] Potassium 4.0 3.3 - 5.1 mmol/L [facility] Comment:Slight Hemolysis.Int erpret result with caution. Chloride 109(H) 96 - 108 mmol/L [facility] Carbon Dioxide 19(L) 22 - 29 mmol/L [facility] Anion Gap 12 12 - 20 [facility] Urea Nitrogen (BUN) 17(H) 9 - 16 mg/dL [facility] Creatinine, Serum 0.78 0.5 - 1.4 mg/dL [facility] Creatinine Clr Calc Pharmacy 121.6 [facility] Comment:Provided height and weight: 152.4 cm,109.5 kg.eGFR (calculated from the MDRD study equation) and eCrCl(calculated from the Cockcroft-Gault equation) are based ondifferent parameters and may not yield comparable results.If eCrCl result is absurd, please check patient'sheight/weight. Estimated Glomerular Filt Rate >60 [facility] Comment:Chronic Kidney Disea se: Estimated GFR < 60 mL/min/1.73y4Lidghm Kidney Disease: Estimated GFR < 15 mL/min/1.73m2 Glucose 117(H) 60 - 115 mg/dL [facility] Calcium 8.8 8.4 - 10.2 mg/dL [facility] Bilirubin, Total 0.3 0.0 - 1.0 mg/dL [facility] Aspartate Amino Transferase 35(H) 5 - 31 U/L [facility] Comment:Slight Hemolysis.Int erpret result with caution. Alanine Aminotransferase 30 0 - 31 U/L [facility] Total Protein 7.5 6.5 - 8.0 g/dL [facility] Albumin Level 4.0 3.5 - 5.0 g/dL [facility] Alkaline Phosphatase 82 39 - 117 U/L [facility] 07/27/2024 11:2 6 PM EDT 07/27/2024 11:31 PM EDT us Generic External Data Provider LAB BLOOD ORDERAB LES Final Result [facility] [address] [place] [address] [phone] * Pap Smear (11/20/2020) Pap Negative for intraephithelial lesion or malignancy Negative for intraephithelial lesion or malignancy, Other us Historical Provider MD HEALTH MAINTENANCE Final Result from Last 3 Months or Most Recently Relevant [place] [id number] [facility] Care Teams Transmitter Engineer In Charge Relationship Specialty Start Date End Date Marva Vides ANP [address] [place] [address] PCP - General Family Medicine 05/05/20
--- OUTSIDE RECORDS SUMMARY | 2024-08-13 13:17 | XMS_ITS | Clinical Summary ---
Author Organization [facility] Address [address] [place] [address] Care Team Providers Care Central Service Tech Name Role Phone Mariel Dumont MD Primary Care Provider [phone] Surgical History Surgery Date Site/Laterality Comments OTHER SURGICAL HISTORY PROCEDURE: [place] ARTHRODESIS POSTERIOR SPINAL DFRM 13+ VRT SGM; COMMENT: Mensah Rods OTHER SURGICAL HISTORY PROCEDURE: [place] PUNCTURE SHUNT TUBE/RESERVOIR ASPIRATION/INJ PX; COMMENT: into spinal cord CARDIAC CATHETERIZATION PROCEDURE: HISTORICAL CARDIAC CATH; COMMENT: murmur Medical History Medical History Date Comments Headache DX:Headache Asthma DX:Asthma HTN (hypertension) DX:HTN (hyper tension) Anxiety DX:Anxiety Family History Medical History Relation Name Comments Hypertension Father DM, [place], stroke Diabetes Father's side 1 aunt, uncles Breast cancer Maternal Grandmother Thyroid disease Mother Relation Name Status Comments Father Father's side 1 Father's side 2 Maternal Grandmother Mother Social History Tobacco Use Types Packs/Day Years Used Date Smoking Tobacco: Never Smokeless Tobacco: Never Alcohol Use Standard Drinks/Week Comments No 0 (1 standard drink = 0.6 oz pur e alcohol) Comments Unknown Sex and Gender Information Value Date Recorded Sex Assigned at Not on file Legal Sex Female 1:55 PM EST Gender Identity Not on file Sexual Orientation Not on file Obstetrics History Plan of Treatment Health Maintenance Due Date Last Done Comments DTaP,Tdap,and Td Vaccines (1 - Tdap) 12/16/2015 Hepatitis B Vaccines (1 of 3 - 19+ 3-dose series) 12/16/2015 Cervical Cancer Screening: P ap Smear 2017 Depression Screening 03/31/2022 HIV Screening 03/31/2022 Hepatitis C Screening 03/31/2022 Social Influencers of Health Screening 03/31/2022 COVID-19 Vaccine (1 - 2023-2 5 season) 2024 Influenza Vaccine (Season Ended) 2024 HIB Vaccines Aged Out No longer eligi ble based on patient's age to complete this topic HPV Vaccines Aged Out No longer eligi ble based on patient's age to complete this topic Hepatitis A Vaccines Aged Out No long er eligible based on patient's age to complete this topic IPV Vaccines Aged Out No longer eligi ble based on patient's age to complete this topic MMR Vaccines Aged Out No longer eligi ble based on patient's age to complete this topic Meningococcal ACWY Vaccine Aged Out N o longer eligible based on patient's age to complete this topic Meningococcal B Vaccine Aged Out No l onger eligible based on patient's age to complete this topic Pneumococcal Vaccine: Pediat rics (0 to 5 Years) and At-Risk Patients (6 to 64 Years) Aged Out No longer eligible b ased on patient's age to complete this topic RSV Immunization Patients Un carmela 20 months Aged Out No longer eligible b ased on patient's age to complete this topic Varicella Vaccines Aged Out No longer eligible based on patient's age to complete this topic Care Teams Central Service Tech Relationship Specialty Start Date End Date Mariel Dumont MD [address] [place], [place] [id number] [place] [address] PCP - General Pediatrics 11/30/14
--- OUTSIDE RECORDS SUMMARY | 2024-08-13 13:17 | XMS_ITS | Encounter Summary ---
Author Organization [facility] Address [address] [place] [address] [address] [place] [address] Care Team Providers Care Resident Associate Name Role Phone Alannah Bernard Primary Care Provider [phone] Reason for Visit * Reason Comments Med Refill Encounter Details Date Type Department Care Team (Late st Contact Info) Description 07/08/2022 Refill [facility] [address] [place] [address] [phone] Alannah Bernard ANP [address], [place] [phone] Heartburn Social History Tobacco Use Types Packs/Day Years Used Date Smoking Tobacco: Never Passive Smoke Exposure: Never Smokeless Tobacco: Never Alcohol Use Standard Drinks/Week Comments Not Currently 0 (1 standard drink = 0.6 oz pur e alcohol) Comments Unknown Sex and Gender Information Value Date Recorded Sex Assigned at Female 03/01/2022 10:34 AM EDT Legal Sex Female 10:34 AM EDT Gender Identity Female 03/01/2022 10:34 AM EDT Sexual Orientation Bisexual 03/01/2022 10 :34 AM EDT documented as of this encounter Plan of Treatment Upcoming Encounters Date Type Department Care Team (Late st Contact Info) Description 09/27/2024 9:30 AM EDT Office Visit [facility] [address] [place] [phone] Alannah Bernard ANP [address], [place] [phone] documented as of this encounter Visit Diagnoses Diagnosis Heartburn documented in this encounter Care Teams Resident Associate Relationship Specialty Start Date End Date Alannah Bernard ANP [address] [place] [address] PCP - General Family Medicine 05/05/20 documented as of this encounter
== END 2024-08-13 11:48 | disposition home or self-care (01) ==
PROVIDERS: PCP Nurse Practitioner Primary Care; Visit Provider Internal Medicine
DX: I34.0 Nonrheumatic mitral (valve) insufficiency (principal); I21.4 Non-ST elevation (NSTEMI) myocardial infarction; I10 Essential (primary) hypertension; Z87.74 Personal history of (corrected) congenital malformations of heart and circulatory system
CPT/HCPCS: 99214; G2211

== ENCOUNTER → 2024-08-13 11:14 | Outpatient (BNVA) | payer OTHER, SELFPAY | PROVIDERS: PCP Nurse Practitioner Primary Care; Visit Provider Internal Medicine | DX: I34.0 Nonrheumatic mitral (valve) insufficiency (principal); I25.2 Old myocardial infarction; I10 Essential (primary) hypertension; Z87.74 Personal history of (corrected) congenital malformations of heart and circulatory system | CPT/HCPCS: 99212 ==

== ENCOUNTER 2024-10-29 07:54 | Outpatient (REF) | payer OTHER, SELFPAY ==
--- OUTSIDE RECORDS SUMMARY | 2024-10-29 07:57 | XMS_ITS | Clinical Summary ---
Author Organization [facility] Address [address] [place] [id number] Care Team Providers Care Insights Strategist Name Role Phone Unavailable Primary Care Provider [...] patient's age to complete this topic Insurance [place] [address] [address] [place] [address] [facility] ([id number]) [place] [phone] [facility] ([id number])
[2024-10-29 09:44] LABS: Alanine Aminotransferase 18 U/L (0-31); Albumin Level 4.2 g/dL (3.5-5.0); Alkaline Phosphatase 86 U/L (39-117); Anion Gap 11 (12-20); Aspartate Amino Transferase 26 U/L (5-31); Bilirubin Total 0.4 mg/dL (0.0-1.0); Blood Urea Nitrogen 13 mg/dL (9-16); Carbon Dioxide 21 mmol/L (22-29); Chloride 109 mmol/L (96-108); Cholesterol 150 mg/dL (<200); Estimated Glomerular Filt Rate > 60; Glucose Random 89 mg/dL (60-115); HDL Cholesterol 35 mg/dL (>40); HIV AB/AG Nonreactive (Nonreactive); HIV Num 1 0.06 S/CO (0.00-0.99); LDL Cholesterol Calculated 94 mg/dL (<100); Potassium 3.9 mmol/L (3.3-5.1); Sodium 137 mmol/L (135-145); Total Protein 7.5 g/dL (6.5-8.0); Triglycerides 107 mg/dL (<150); ~HepC Num1 0.11 S/CO (0.00-0.79); ~Hepatitis C Antibody Nonreactive (Nonreactive)
== END 2024-10-29 07:55 | disposition home or self-care (01) ==
LOC: HO.LAB 07:54
PROVIDERS: PCP Nurse Practitioner Primary Care; Visit Provider Nurse Practitioner Primary Care
DX: I21.4 Non-ST elevation (NSTEMI) myocardial infarction (principal); Z11.3 Encounter for screening for infections with a predominantly sexual mode of transmission; I10 Essential (primary) hypertension
CPT/HCPCS: 36415; 80053; 80061; 86803; 87389